=== PATIENT | male | born 1985 | race Caucasian/White ===

== ENCOUNTER 2018-01-25 12:03 | Inpatient (IN) | payer OTHER ==
[2018-01-25 12:35] VITALS: BMI 25.8
--- NOTE | 2018-01-25 16:00 | HP ---
COWS - Scale Resting Pulse: 0= [place] 80 or Below Sweatin= Chills/Flushing Restless Observation: 3= Extraneous Movement Pupil Size: 2= Moderately Dilated Bone or Joint Aches: 2= Severe Diffuse Aches Runny Nose/ Eye Tearin= Runny Nose/Eyes GI Upset > 30mins: 3= Vomiting/Diarrhea Tremor Observation: 2= Slight Tremor Visible Yawning Observation: 2= >3x During Session Anxiety or Irritability: 2=Irritable/Anxious Goose Flesh Skin: 0=Smooth Skin COWS Score: 19 CIWA Score - CIWA Score Nausea/Vomitin Muscle Tremors: 3 Anxiety: 3 Agitation: 3 Paroxysmal Sweats: 2 Orientation: 0-Oriented Tacttile Disturbances: 1-Very Mild Itch/Numbness Auditory Disturbances: 1-Very Mild Visual Disturbances: 0-None Headache: 2-Mild CIWA-Ar Total Score: 18 Admission ROS BHS - HPI Chief Complaint: i need help to stop using heroin,alcohol,xanax,cocaine dependence Allergies/Adverse Reactions: Allergies Allergy/AdvReac Type Severity Reaction Status Date / Time No Known Allergies Allergy Verified 01/25/18 15:42 History of Present Illness: this 32 years old male with heroin,alcohol,cocaine and xanax dependence,seeking detox,withdrawal symptom,last detox 10/19 susanna history of asthma hepatitis c weight loss multiple admissions to detox no significant period of sobriety Exam Limitations: No Limitations - Ebola screening Have you traveled outside of the country in the last 21 days: No Have you been sick,other than usual withdrawal symptoms: No - Review of Systems Constitutional: Chills, Loss of Appetite, Malaise, Night Sweats, Changes in sleep, Weakness, Unintentional Wgt. Loss EENT: reports: Tearing, Hearing Loss Respiratory: reports: No Symptoms reported Cardiac: reports: Palpitations GI: reports: Diarrhea, Nausea, Vomiting, Abdominal cramping : reports: No Symptoms Reported Musculoskeletal: reports: Back Pain, Joint Pain, Muscle Pain, Joint Stiffness Integumentary: reports: Dryness Neuro: reports: Headache, Tremors Endocrine: reports: No Symptoms Reported Hematology: reports: No Symptoms Reported Psychiatric: reports: No Sypmtoms Reported, Mood/Affect Appropiate, Orientated x3 Patient History - Patient Medical History Hx Anemia: No Hx Asthma: Yes (on inhaler) Hx Chronic Obstructive Pulmonary Disease (COPD): No Hx Cancer: No Hx Cardiac Disorders: No Hx Congestive Heart Failure: No Hx Hypertension: No Hx Hypercholesterolemia: No Hx Pacemaker: No HX Cerebrovascular Accident: No Hx Seizures: No Hx Dementia: No Hx Diabetes: No Hx Gastrointestinal Disorders: No Hx Liver Disease: No Hx Genitourinary Disorders: No Hx Sexually Transmitted Disorders: No Hx Renal Disease (ESRD): No Hx Thyroid Disease: No Hx Human Immunodeficiency Virus (HIV): No (12/19 negative) Hx Hepatitis C: Yes Hx Depression: Yes Hx Suicide Attempt: No Hx Bipolar Disorder: Yes (AND ANXIETY) Hx Schizophrenia: No Other Medical History: no suicidal,no homicidal - Patient Surgical History Past Surgical History: No Hx Neurologic Surgery: No Hx Cataract Extraction: No Hx Cardiac Surgery: No Hx Lung Surgery: No Hx Breast Surgery: No Hx Breast Biopsy: No Hx Abdominal Surgery: No Hx Appendectomy: No Hx Cholecystectomy: No Hx Genitourinary Surgery: No Hx Section: No Hx Orthopedic Surgery: No Anesthesia Reaction: No - PPD History Previous Implant?: Yes Documented Results: Positive w/o proof Date: 04/28/15 Results: 0 mm PPD to be Administered?: Yes - Smoking Cessation Smoking history: Never smoked Have you smoked in the past 12 months: No Aproximately how many cigarettes per day: 4 Cigars Per Day: 0 Hx Chewing Tobacco Use: No Initiated information on smoking cessation: Yes 'Breaking Loose' booklet given: 01/25/18 - Substance & Tx. History Hx Alcohol Use: Yes Hx Substance Use: Yes Substance Use Type: Alcohol, Heroin, Tranquilizers Hx Substance Use Treatment: Yes - Substances Abused Heroin Route: Injection Frequency: Daily Amount used: 7 BAGS Age of first use: 23 Date of Last Use: 01/24/18 Alprazolam (Xanax) Route: Oral Frequency: Daily Amount used: 4MG Age of first use: 29 Date of Last Use: 01/25/18 Alcohol Route: Oral Frequency: Daily Amount used: 3 PINTS VODKA Age of first use: 18 Date of Last Use: 01/24/18 Crack Route: Injection Frequency: 1-2 times per week Amount used: 2-3 BAGS Age of first use: 18 Date of Last Use: 01/21/18 Family Disease History - Family Disease History Family Disease History: Diabetes: Father (ETOH DEPENDENT), CA: Grandparent, Respiratory: Brother (ASTHMA), Other: Father Admission Physical Exam [facility] - Vital Signs Vital Signs: Vital Signs - 24 hr 01/25/18 12:28 Temperature 96.9 F L Pulse Rate 71 Respiratory 18 Rate Blood Pressure 133/83 - Physical General Appearance: Yes: Moderate Distress, Tremorous, Irritable, Sweating, Anxious HEENTM: Yes: Normal ENT Inspection, ANASTACIA, Pharynx Normal Respiratory: Yes: No Respiratory Distress, Wheezing Neck: Yes: Within Normal Limits Breast: Yes: Within Normal Limits Cardiology: Yes: Within Normal Limits, Regular Rhythm, Regular Rate, Diastolic Murmur Abdominal: Yes: Within Normal Limits, Normal Bowel Sounds, Non Tender, Flat, Soft Genitourinary: Yes: Within Normal Limits Back: Yes: Normal Inspection, Muscle Spasm Musculoskeletal: Yes: Back pain, Joint Stiffness, Muscle Pain Extremities: Yes: Normal Range of Motion, Tremors Neurological: Yes: rn case 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 II-XII NML intact, Fully Oriented, Alert, Motor Strength 5/5 Integumentary: Yes: Dry Lymphatic: Yes: Within Normal Limits - Diagnostic (1) Opioid dependence with withdrawal Status: Acute (2) Asthma Status: Acute Qualifiers: Asthma severity: mild Asthma persistence: intermittent Asthma complication type: uncomplicated Qualified Code(s): J45.20 - Mild intermittent asthma, uncomplicated (3) Cocaine dependence Status: Acute Qualifiers: Substance use status: uncomplicated Qualified Code(s): F14.20 - Cocaine dependence, uncomplicated (4) Weight decreased Status: Acute (5) Alcohol dependence with uncomplicated withdrawal Status: Chronic (6) Cocaine dependence with withdrawal Status: Chronic (7) Hepatitis C Status: Chronic Qualifiers: Viral hepatitis chronicity: chronic Hepatic coma status: without hepatic coma Qualified Code(s): B18.2 - Chronic viral hepatitis C (8) Nicotine dependence Status: Chronic Qualifiers: Nicotine product type: cigarettes Substance use status: uncomplicated Qualified Code(s): F17.210 - Nicotine dependence, cigarettes, uncomplicated (9) Sedative dependence Status: Chronic Cleared for Admission [facility] - Detox or Rehab [facility] Level of Care: Medically Managed Detox Regimen/Protocol: Methadone/Valium [facility] Breath Alcohol Content Breath Alcohol Content: 0 Urine Drug Screen - Results Drug Screen Negative: Yes Urine Drug Screen Results: [place]-Cocaine, OPI-Opiates, BZO-Benzodiazepines, MTD- Methadone
[2018-01-25] MEDS ORDERED: MENTHOL/PHENOL 1 EACH UD MM PRN (16:10)
[2018-01-25] MEDS ORDERED: MAGNESIUM CITRATE 300 ML BOTTLE PO PRN (16:10)
[2018-01-25] MEDS ORDERED: hydrOXYzine PAMOATE 25 MG CAPSULE (FP) PO PRN (16:10)
[2018-01-25] MEDS ORDERED: ACETAMINOPHEN 325 MG TABLET (FP) PO PRN (16:10)
[2018-01-25] MEDS ORDERED: diazePAM 5 MG TABLET PO PRN (16:10)
[2018-01-25] MEDS ORDERED: IBUPROFEN 400 MG TABLET (FP) PO PRN (16:10)
[2018-01-25] MEDS ORDERED: MAGNESIUM HYDROX 2400MG/30ML ORAL SUSPENSION 30 ML CUP PO PRN (16:10)
[2018-01-25] MEDS ORDERED: P-EPHED 60MG/TRIPROLIDI 2.5MG TABLET PO PRN (16:10)
[2018-01-25] MEDS ORDERED: guaiFENesin/D-METHORPHAN HB 10 ML UNIT-DOSE CUPS PO PRN (16:10)
[2018-01-25] MEDS ORDERED: LOPERAMIDE HCL 2 MG CAPSULE PO PRN (16:10)
[2018-01-25] MEDS ORDERED: MAG HYDROX/AL HYDROX/SIMETH 30 ML UNIT-DOSE CUP PO PRN (16:10)
[2018-01-25] MEDS ORDERED: CYCLOBENZAPRINE HCL 10 MG TABLET (FP) PO PRN (16:16)
[2018-01-25] MEDS ORDERED: ALBUTEROL SO4 2.5/IPRATROPIUM 0.5 INH SOL 3 ML VIAL.NEB. NEB PRN (16:19)
[2018-01-25] MEDS ORDERED: METHADONE HCL 10 MG TABLET (FOR DETOX USE ONLY) PO ONE ×2 (16:45→23:00)
[2018-01-25] MEDS ORDERED: diazePAM 5 MG TABLET PO ONE (16:45)
[2018-01-25] MEDS ORDERED: MELATONIN 5 MG TABLETS PO PRN (22:00)
[2018-01-25] MEDS ORDERED: THIAMINE HCL 100 MG TABLET (FP) PO SCH (22:00)
[2018-01-25] MEDS: diazePAM 5 MG TABLET PO SCH (22:13)
[2018-01-25] MEDS: cloNIDine HCL 0.1 MG TABLET PO SCH (22:14)
[2018-01-26 01:29] LABS: URINE APPEARANCE TURBID; URINE BILIRUBIN NEGATIVE (<2.0 mg/dL); URINE COLOR DKYELLOW; URINE GLUCOSE (UA) NEGATIVE (NEGATIVE); URINE KETONE NEGATIVE (NEGATIVE); URINE LEUK ESTERASE NEGATIVE (NEGATIVE); URINE NITRITE NEGATIVE (NEGATIVE); URINE PROTEIN NEGATIVE (NEGATIVE); URINE UROBILINOGEN NEGATIVE mg/dL (0.2-1.0)
[2018-01-26] MEDS: ALBUTEROL SO4 8 GM HFA INHALER IH PRN ×2 (03:32→08:18)
[2018-01-26] MEDS: diazePAM 5 MG TABLET PO SCH (05:18)
[2018-01-26 06:39] VITALS: TEMP 97.6
[2018-01-26 09:52] VITALS: BP 133/84; PULSE 60
[2018-01-26] MEDS ORDERED: PRENATAL VITAMINS W/ FOLIC ACID TABLET (FP) PO SCH (10:00)
[2018-01-26] MEDS ORDERED: METHADONE HCL 10 MG TABLET (FOR DETOX USE ONLY) PO SCH (10:00)
[2018-01-26] MEDS ORDERED: NICOTINE 7 MG/24 HOURS TOPICAL PATCH TD SCH (10:00)
[2018-01-26 10:22] LABS: CHLORIDE 106 mmol/L (98-107); POTASSIUM 4.6 mmol/L (3.5-5.1); SODIUM 143 mmol/L (136-145)
[2018-01-26 10:30] LABS: HEMATOCRIT 37.6 % (35.4-49); HEMOGLOBIN 12.3 GM/dL (11.7-16.9); MCH 26.4 pg (25.7-33.7); MCHC 32.8 g/dl (32.0-35.9); MEAN CELL VOLUME 80.6 fl (80-96); MEAN PLT VOLUME 8.6 fl (7.5-11.1); PLATELET COUNT 245 K/MM3 (134-434); RBC 4.67 M/mm3 (4.00-5.60); RDW 14.8 % (11.9-15.9); WHITE BLOOD COUNT 5.6 K/mm3 (4.0-10.0)
[2018-01-26] MEDS: cloNIDine HCL 0.1 MG TABLET PO SCH (10:44)
[2018-01-26 10:55] LABS: ALK PHOS 87 U/L (45-117); ANION GAP 10 MMOL/L (8-16); BILIRUBIN,TOTAL 0.5 mg/dL (0.2-1.0); BLOOD UREA NITROGEN 14 mg/dL (7-18); CALCIUM 8.5 mg/dL (8.5-10.1); CO2 27 mmol/L (21-32); CREATININE 0.6 mg/dL (0.7-1.3); GLUCOSE,RANDOM 71 mg/dL (74-106); SGOT/AST 32 U/L (15-37); SGPT/ALT 33 U/L (12-78); TOT PROT 6.4 g/dl (6.4-8.2)
--- NOTE | 2018-01-26 11:04 | CONSULT ---
[facility] Psychiatric Consult - Data Date of interview: 01/26/18 Admission [facility] Identifying data: Approached for psychiatric interview.Mr Moody refuses to talk to this engineering writer." I don't have psychiatric problems." Nursing staff is made aware.
--- NOTE | 2018-01-26 14:28 | PN ---
S CIWA - CIWA Score Nausea/Vomitin Muscle Tremors: 3 Anxiety: 4-Mod. Anxious/Guarded Agitation: 5 Paroxysmal Sweats: 2 Orientation: 0-Oriented Tacttile Disturbances: 2-Mild Itch/Numbness/Burn Auditory Disturbances: 0-None Visual Disturbances: 1-Very Mild Sensitivity Headache: 0-None Present CIWA-Ar Total Score: 19 BHS COWS - Scale Resting Pulse: 0= [place] 80 or Below Sweatin= Chills/Flushing Restless Observation: 1= Difficult to Sit Still Pupil Size: 0= Normal to Room Light Bone or Joint Aches: 2= Severe Diffuse Aches Runny Nose/ Eye Tearin= Nasal Congestion GI Upset > 30mins: 1= Stomach Cramp Tremor Observation of Outstretched Hands: 2= Slight Tremor Visible Yawning Observation: 1= 1-2x During Session Anxiety or Irritability: 4=Extreme Anxiety Goose Flesh Skin: 0=Smooth Skin COWS Score: 13 S Progress Note (SOAP) Subjective: Sweating, Body Aches, Tremors, Fatigue, Anxious. Objective: PATIENT A & O X 3, OBSERVED AMBULATING ON UNIT. NO ACUTE DISTRESS. 01/26/18 14:31 Vital Signs Temperature 97.6 F 01/26/18 09:51 Pulse Rate 60 01/26/18 09:51 Respiratory Rate 18 01/26/18 09:51 Blood Pressure 133/84 01/26/18 09:51 O2 Sat by Pulse Oximetry (%) Laboratory Tests 01/25/18 01/26/18 01/26/18 22:56 08:00 08:00 WBC 5.6 RBC 4.67 Hgb 12.3 Hct 37.6 MCV 80.6 MCH 26.4 MCHC 32.8 RDW 14.8 Plt Count 245 MPV 8.6 Sodium 143 Potassium 4.6 Chloride 106 Carbon Dioxide 27 Anion Gap 10 BUN 14 Creatinine 0.6 L Creat Clearance w eGFR > 60 Random Glucose 71 L Calcium 8.5 Total Bilirubin 0.5 AST 32 D ALT 33 D Alkaline Phosphatase 87 Total Protein 6.4 Albumin 3.0 L Urine Color Dkyellow Urine Appearance Turbid Urine pH 7.0 Ur Specific [place] 1.024 Urine Protein Negative Urine Glucose (UA) Negative Urine Ketones Negative Urine Blood Negative Urine Nitrite Negative Urine Bilirubin Negative Urine Urobilinogen Negative Ur Leukocyte Esterase Negative RPR Titer 01/26/18 08:00 WBC RBC Hgb Hct MCV MCH MCHC RDW Plt Count MPV Sodium Potassium Chloride Carbon Dioxide Anion Gap BUN Creatinine Creat Clearance w eGFR Random Glucose Calcium Total Bilirubin AST ALT Alkaline Phosphatase Total Protein Albumin Urine Color Urine Appearance Urine pH Ur Specific [place] Urine Protein Urine Glucose (UA) Urine Ketones Urine Blood Urine Nitrite Urine Bilirubin Urine Urobilinogen Ur Leukocyte Esterase RPR Titer Nonreactive LABS NOTED. Assessment: 01/26/18 14:31 WITHDRAWAL SYMPTOMS. Plan: CONTINUE DETOX.
--- NOTE | 2018-01-26 14:33 | DS ---
[facility] Detox Discharge Summary Admission Date: 01/25/18 Discharge Date: 01/26/18 - History Present History: Alcohol Dependence, Cocaine Dependence, Opioid Dependence, Sedative Dependence Additional Comments: PATIENT DOES NOT WISH TO REMAIN TO COMPLETE DETOX REGIMEN. RISKS OF LEAVING DETOX UNIT AGAINST MEDICAL ADVICE AND PRIOR TO COMPLETION OF DETOX REGIMEN EXPLAINED TO PATIENT. PATIENT ADVISED TO GO IMMEDIATELY TO NEAREST ER SHOULD ANY INTOLERABLE DETOX SYMPTOMS DEVELOP AT ANY TIME. PATIENT LEFT DETOX UNIT IN STABLE MEDICAL CONDITION. Pertinent Past History: Nicotine Dependence, Hep C, Asthma, History of Depression, History of Bipolar Disorder, Anxiety, Weight Decreased. - Physical Exam Results Vital Signs: Vital Signs Temperature 97.6 F 01/26/18 09:51 Pulse Rate 60 01/26/18 09:51 Respiratory Rate 18 01/26/18 09:51 Blood Pressure 133/84 01/26/18 09:51 O2 Sat by Pulse Oximetry (%) Pertinent Admission Physical Exam Findings: WITHDRAWAL SYMPTOMS. Laboratory Tests 01/25/18 01/26/18 01/26/18 22:56 08:00 08:00 WBC 5.6 RBC 4.67 Hgb 12.3 Hct 37.6 MCV 80.6 MCH 26.4 MCHC 32.8 RDW 14.8 Plt Count 245 MPV 8.6 Sodium 143 Potassium 4.6 Chloride 106 Carbon Dioxide 27 Anion Gap 10 BUN 14 Creatinine 0.6 L Creat Clearance w eGFR > 60 Random Glucose 71 L Calcium 8.5 Total Bilirubin 0.5 AST 32 D ALT 33 D Alkaline Phosphatase 87 Total Protein 6.4 Albumin 3.0 L Urine Color Dkyellow Urine Appearance Turbid Urine pH 7.0 Ur Specific [place] 1.024 Urine Protein Negative Urine Glucose (UA) Negative Urine Ketones Negative Urine Blood Negative Urine Nitrite Negative Urine Bilirubin Negative Urine Urobilinogen Negative Ur Leukocyte Esterase Negative RPR Titer 01/26/18 08:00 WBC RBC Hgb Hct MCV MCH MCHC RDW Plt Count MPV Sodium Potassium Chloride Carbon Dioxide Anion Gap BUN Creatinine Creat Clearance w eGFR Random Glucose Calcium Total Bilirubin AST ALT Alkaline Phosphatase Total Protein Albumin Urine Color Urine Appearance Urine pH Ur Specific [place] Urine Protein Urine Glucose (UA) Urine Ketones Urine Blood Urine Nitrite Urine Bilirubin Urine Urobilinogen Ur Leukocyte Esterase RPR Titer Nonreactive LABS NOTED. - Treatment Hospital Course: Detoxed Safely - Medication Discharge Medications: Ambulatory Orders Albuterol Sulfate Inhaler - [Ventolin HFA Inhaler -] 2 inh PO Q4H PRN 12/31/13 - Diagnosis (1) Asthma Status: Acute Qualifiers: Asthma severity: mild Asthma persistence: intermittent Asthma complication type: uncomplicated Qualified Code(s): J45.20 - Mild intermittent asthma, uncomplicated (2) Opioid dependence with withdrawal Status: Acute (3) Weight decreased Status: Acute (4) Alcohol dependence with uncomplicated withdrawal Status: Chronic (5) Cocaine dependence with withdrawal Status: Chronic (6) Hepatitis C Status: Chronic Qualifiers: Viral hepatitis chronicity: chronic Hepatic coma status: without hepatic coma Qualified Code(s): B18.2 - Chronic viral hepatitis C (7) Nicotine dependence Status: Chronic Qualifiers: Nicotine product type: cigarettes Substance use status: uncomplicated Qualified Code(s): F17.210 - Nicotine dependence, cigarettes, uncomplicated (8) Sedative dependence Status: Chronic - AMA Did Patient Leave Against Medical Advice: Yes (PATIENT DID NOT WISH TO REMAIN TO COMPLETE DETOX REGIMEN.)
--- NOTE | 2018-01-26 19:08 | EKG ---
Test Reason : Blood Pressure : / mmHG Vent. Rate : 070 BPM Atrial Rate : 070 BPM P-R Int : 158 ms QRS Dur : 096 ms QT Int : 420 ms P-R-T Axes : 043 030 053 degrees QTc Int : 453 ms NORMAL SINUS RHYTHM NORMAL ECG NO PREVIOUS ECGS AVAILABLE Confirmed by MIRA CLINE MD ([id number]) on 01/26/2018 7:08:17 PM Referred By: Confirmed By:MIRA CLINE MD
[2018-01-27] MEDS ORDERED: diazePAM 5 MG TABLET PO SCH (10:00)
[2018-01-27] MEDS ORDERED: METHADONE HCL 5 MG TABLET (FOR DETOX USE ONLY) PO SCH (10:00)
[2018-01-29] MEDS ORDERED: METHADONE HCL 10 MG TABLET (FOR DETOX USE ONLY) PO SCH (10:00)
[2018-01-29] MEDS ORDERED: diazePAM 5 MG TABLET PO SCH (10:00)
[2018-01-30] MEDS ORDERED: METHADONE HCL 5 MG TABLET (FOR DETOX USE ONLY) PO SCH (06:00)
== END 2018-01-26 11:28 | disposition left against medical advice (07) | DRG 770 ==
LOC: YASAS 12:03 → Y3N 15:54
PROVIDERS: ADMIT Surgery; ATTEND Surgery
PROC: HZ2ZZZZ Detoxification Services for Substance Abuse Treatment (ICD-10-PCS; principal; 2018-01-25)
DX: F11.23 Opioid dependence with withdrawal (principal); F10.230 Alcohol dependence with withdrawal, uncomplicated; F13.20 Sedative, hypnotic or anxiolytic dependence, uncomplicated; F14.20 Cocaine dependence, uncomplicated; F17.210 Nicotine dependence, cigarettes, uncomplicated; J45.20 Mild intermittent asthma, uncomplicated; B18.2 Chronic viral hepatitis C; Z87.898 Personal history of other specified conditions
CPT/HCPCS: 36415; 80053; 81003; 85027; 86593; 93005; 93010; 94640; J0735; J7620

== ENCOUNTER 2018-03-20 09:35 | Inpatient (IN) | payer OTHER ==
[2018-03-20 10:28] VITALS: BMI 24.2
--- NOTE | 2018-03-20 16:00 | HP ---
COWS - Scale Resting Pulse: 1= [place] 81-100 Sweatin= Chills/Flushing Restless Observation: 1= Difficult to Sit Still Pupil Size: 1= Pupils >than Normal Bone or Joint Aches: 1= Mild Discomfort Runny Nose/ Eye Tearin= Runny Nose/Eyes GI Upset > 30mins: 2= Nausea/Diarrhea Tremor Observation: 2= Slight Tremor Visible Yawning Observation: 2= >3x During Session Anxiety or Irritability: 2=Irritable/Anxious Goose Flesh Skin: 0=Smooth Skin COWS Score: 15 CIWA Score - CIWA Score Nausea/Vomitin Muscle Tremors: 2 Anxiety: 3 Agitation: 1-Slight > Activity Paroxysmal Sweats: 3 Orientation: 1-Uncertain about Date Tacttile Disturbances: 2-Mild Itch/Numbness/Burn Auditory Disturbances: 0-None Visual Disturbances: 1-Very Mild Sensitivity Headache: 2-Mild CIWA-Ar Total Score: 18 Admission ROS BHS - HPI Chief Complaint: " I am tire" alcohol and opioid withdrawal symptoms Allergies/Adverse Reactions: Allergies Allergy/AdvReac Type Severity Reaction Status Date / Time No Known Allergies Allergy Verified 01/25/18 15:42 History of Present Illness: 32 yo male with hx cocaine , heroin (IV), and alcohol dependence is here seeking detox, this of multiple admissions. Reports using occasional use of needles that he picks up off the street. Reports currently mandated to attend detox program by community court ([facility]) after arrested for drug possession. Last detox [facility] two months ago. PMHX: asthma, Hep C, anxiety, depression. Denies suicidal / homicidal ideation. Reports hx of ETOH r/t seizure about one year ago. Reports hx of frequent blackouts. Longest period of sobriety ten months while incarcerated, reports no significant period of sobriety while in the community. Exam Limitations: No Limitations - Ebola screening Have you traveled outside of the country in the last 21 days: No (N) Have you had contact with anyone from an Ebola affected area: No Have you been sick,other than usual withdrawal symptoms: No Do you have a fever: No - Review of Systems Constitutional: Chills, Diaphoresis, Loss of Appetite, Weakness, Unintentional Wgt. Loss EENT: reports: No Symptoms Reported Respiratory: reports: No Symptoms reported Cardiac: reports: No Symptoms Reported GI: reports: Constipated, Nausea, Vomiting, Abdominal cramping : reports: No Symptoms Reported Musculoskeletal: reports: Back Pain, Joint Pain Integumentary: reports: No Symptoms Reported Neuro: reports: See HPI, Headache Endocrine: reports: Increased Thirst Hematology: reports: No Symptoms Reported Psychiatric: reports: Orientated x3, Anxious Other Systems: Reviewed and Negative Patient History - Patient Medical History Hx Anemia: No Hx Asthma: Yes Hx Chronic Obstructive Pulmonary Disease (COPD): No Hx Cancer: No Hx Cardiac Disorders: No Hx Congestive Heart Failure: No Hx Hypertension: No Hx Hypercholesterolemia: No Hx Pacemaker: No HX Cerebrovascular Accident: No Hx Seizures: Yes (r/t drinking one year ago ) Hx Dementia: No Hx Diabetes: No Hx Gastrointestinal Disorders: No Hx Liver Disease: No Hx Genitourinary Disorders: No Hx Sexually Transmitted Disorders: No Hx Renal Disease (ESRD): No Hx Thyroid Disease: No Hx Human Immunodeficiency Virus (HIV): No (12/19 negative) Hx Hepatitis C: Yes Hx Depression: Yes Hx Suicide Attempt: Yes Hx Bipolar Disorder: Yes (AND ANXIETY) Hx Schizophrenia: No - Patient Surgical History Past Surgical History: No Hx Neurologic Surgery: No Hx Cataract Extraction: No Hx Cardiac Surgery: No Hx Lung Surgery: No Hx Breast Surgery: No Hx Breast Biopsy: No Hx Abdominal Surgery: No Hx Appendectomy: No Hx Cholecystectomy: No Hx Genitourinary Surgery: No Hx Section: No Hx Orthopedic Surgery: No Anesthesia Reaction: No - PPD History Previous Implant?: Yes Documented Results: Negative w/proof Implanted On Prior [facility] Admission?: Yes Date: 04/28/15 Results: 0 mm PPD to be Administered?: Yes - Smoking Cessation Smoking history: Current every day smoker Have you smoked in the past 12 months: No Aproximately how many cigarettes per day: 0 Cigars Per Day: 0 Hx Chewing Tobacco Use: No Initiated information on smoking cessation: No - Substance & Tx. History Hx Alcohol Use: Yes Hx Substance Use: Yes Substance Use Type: Alcohol, Heroin - Substances Abused Alcohol Route: Oral Frequency: Daily Amount used: 1 pint Age of first use: 18 Date of Last Use: 03/20/18 Heroin Route: Injection Frequency: Daily Amount used: 7 to 8 bags Age of first use: 23 Date of Last Use: 03/20/18 Family Disease History - Family Disease History Family Disease History: Diabetes: Father (ETOH DEPENDENT), CA: Grandparent, Respiratory: Brother (ASTHMA), Other: Father Admission Physical Exam [facility] - Vital Signs Vital Signs: Vital Signs - 24 hr 03/20/18 10:24 Temperature 97.6 F Pulse Rate 85 Respiratory 18 Rate Blood Pressure 122/75 - Physical General Appearance: Yes: Disheveled, Moderate Distress, Thin, Sweating, Anxious HEENTM: Yes: EOMI, Hearing grossly Normal, Normal ENT Inspection, Normocephalic , Normal Voice, ANASTACIA, Pharynx Normal, Tm's normal, Other (cheilithis) Respiratory: Yes: Chest Non-Tender, Lungs Clear, Normal Breath Sounds, No Respiratory Distress, No Accessory Muscle Use Neck: Yes: No masses,lesions,Nodules, Trachea in good position Cardiology: Yes: Regular Rhythm, Regular Rate Abdominal: Yes: Normal Bowel Sounds, Non Tender, Flat, Soft Genitourinary: Yes: Within Normal Limits Back: Yes: Normal Inspection Musculoskeletal: Yes: full range of Motion, Gait Steady, Pelvis Stable, Back pain Extremities: Yes: Normal Capillary Refill, Normal Inspection, Normal Range of Motion, Non-Tender Neurological: Yes: 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 NML intact, Fully Oriented, Alert, Motor Strength 5/5, Depressed Affect Integumentary: Yes: Normal Color, Warm, Diaphoresis, Track Huggins (bilateral forearms track huggins present, no infection present) Lymphatic: Yes: Within Normal Limits - Diagnostic (1) Asthma Current Visit: Yes Status: Chronic Qualifiers: Asthma severity: mild Asthma persistence: intermittent Asthma complication type: uncomplicated Qualified Code(s): J45.20 - Mild intermittent asthma, uncomplicated (2) Opioid dependence with withdrawal Current Visit: Yes Status: Acute (3) Weight decreased Current Visit: Yes Status: Acute (4) Alcohol dependence with uncomplicated withdrawal Current Visit: Yes Status: Chronic (5) Hepatitis C Current Visit: Yes Status: Chronic Qualifiers: Viral hepatitis chronicity: chronic Hepatic coma status: without hepatic coma Qualified Code(s): B18.2 - Chronic viral hepatitis C (6) Nicotine dependence Current Visit: Yes Status: Chronic Qualifiers: Nicotine product type: cigarettes Substance use status: uncomplicated Qualified Code(s): F17.210 - Nicotine dependence, cigarettes, uncomplicated (7) IVDU (intravenous drug user) Current Visit: Yes Status: Acute Cleared for Admission [facility] - Detox or Rehab [facility] Level of Care: Medically Managed Detox Regimen/Protocol: Methadone/Valium [facility] Breath Alcohol Content Breath Alcohol Content: 0.060 Urine Drug Screen - Results Drug Screen Negative: No Urine Drug Screen Results: [place]-Cocaine, OPI-Opiates, BZO-Benzodiazepines, MTD- Methadone, FEN-Fentanyl
[2018-03-20] MEDS ORDERED: ALBUTEROL SO4 8 GM HFA INHALER IH PRN (16:04)
[2018-03-20] MEDS ORDERED: guaiFENesin/D-METHORPHAN HB 10 ML UNIT-DOSE CUPS PO PRN (16:05)
[2018-03-20] MEDS ORDERED: MAGNESIUM CITRATE 300 ML BOTTLE PO PRN (16:05)
[2018-03-20] MEDS ORDERED: diazePAM 5 MG TABLET PO PRN (16:05)
[2018-03-20] MEDS ORDERED: LOPERAMIDE HCL 2 MG CAPSULE PO PRN (16:05)
[2018-03-20] MEDS ORDERED: P-EPHED 60MG/TRIPROLIDI 2.5MG TABLET PO PRN (16:05)
[2018-03-20] MEDS ORDERED: ACETAMINOPHEN 325 MG TABLET (FP) PO PRN (16:05)
[2018-03-20] MEDS ORDERED: IBUPROFEN 400 MG TABLET (FP) PO PRN (16:05)
[2018-03-20] MEDS ORDERED: MENTHOL/PHENOL 1 EACH UD MM PRN (16:05)
[2018-03-20] MEDS ORDERED: MAG HYDROX/AL HYDROX/SIMETH 30 ML UNIT-DOSE CUP PO PRN (16:05)
[2018-03-20] MEDS ORDERED: MAGNESIUM HYDROX 2400MG/30ML ORAL SUSPENSION 30 ML CUP PO PRN (16:05)
[2018-03-20] MEDS ORDERED: METHADONE HCL 10 MG TABLET (FOR DETOX USE ONLY) PO ONE ×2 (17:00→23:00)
[2018-03-20] MEDS ORDERED: diazePAM 5 MG TABLET PO ONE (17:00)
[2018-03-20] MEDS: diazePAM 5 MG TABLET PO SCH (23:25)
[2018-03-20] MEDS: THIAMINE HCL 100 MG TABLET (FP) PO SCH (23:26)
[2018-03-20] MEDS: MELATONIN 5 MG TABLETS PO PRN (23:27)
[2018-03-21] MEDS: diazePAM 5 MG TABLET PO SCH ×3 (06:10→22:37)
--- NOTE | 2018-03-21 07:24 | CONSULT ---
[facility] Psychiatric Consult - Data Date of interview: 03/21/18 Admission source: [facility] Identifying data: This is a 32 years old male, single, father of two, living at long term, unemployed, on PA support, with psychiatric hospitalization history , with history of Bipolar Disorder, history of Cocaine , Heroin (IV), Alcohol and Nicotine dependence is here seeking detox, reporting withdrawal symptoms. Substance Abuse History: - Smoking Cessation. Smoking history: Current every day smoker. Have you smoked in the past 12 months: No. Aproximately how many cigarettes per day: 0. Cigars Per Day: 0. Hx Chewing Tobacco Use: No. Initiated information on smoking cessation: No. - Substance & Tx. History. Hx Alcohol Use: Yes. Hx Substance Use: Yes. Substance Use Type: Alcohol, Heroin. - Substances Abused. Alcohol. Route: Oral. Frequency: Daily. Amount used: 1 pint. Age of first use: 18. Date of Last Use: 03/20/18. Heroin. Route: Injection. Frequency: Daily. Amount used: 7 to 8 bags. Age of first use: 23. Date of Last Use: 03/20/18 Medical History: Weight loss history, Asthma, HepC+, Seizure history Psychiatric History: Patient reports history of depression and anxiety, as per computer carries Bipolar Disorder history, history of suicidal attempt in the past, patent denies suicidal history, reports recent, on 2016, hospitalization at [facility] for safety, denies taking psychiatric medications prior to admission. Physical/Sexual Abuse/Trauma History: Denies Additional Comment: Observation. Detox Unit Care Protocol Mental Status Exam - Mental Status Exam Alert and Oriented to: Person Cognitive Function: Fair Patient Appearance: Unkempt Mood: Anxious Affect: Mood Congruent Patient Behavior: Cooperative Speech Pattern: Appropriate Voice Loudness: Normal Thought Process: Circumstantial Thought Disorder: Being Controlled Hallucinations: Denies Suicidal Ideation: Denies Homicidal Ideation: Denies Insight/Judgement: Fair Sleep: Difficulty falling asleep Appetite: Weight loss Muscle strength/Tone: Mild Hypotonicity Gait/Station: Shuffling Additional Comments: Observation. Detox Unit Care Protocol. Vistaril 50mg po prn q4 for anxiety Psychiatric Findings - Problem List ([place] 1, 2,3) (1) Opioid dependence with withdrawal Current Visit: Yes Status: Acute (2) Opioid dependence Current Visit: No Status: Acute (3) Cocaine dependence with withdrawal Current Visit: No Status: Chronic (4) Sedative dependence Current Visit: No Status: Chronic - Initial Treatment Plan Initial Treatment Plan: Observation. Detox Unit Care Protocol. Vistaril 50mg po prn q4 for anxiety
[2018-03-21] MEDS ORDERED: hydrOXYzine PAMOATE 50 MG CAPSULE (FP) PO PRN (09:05)
--- NOTE | 2018-03-21 09:23 | EKG ---
Test Reason : Blood Pressure : / mmHG Vent. Rate : 096 BPM Atrial Rate : 096 BPM P-R Int : 154 ms QRS Dur : 100 ms QT Int : 368 ms P-R-T Axes : 063 023 060 degrees QTc Int : 464 ms NORMAL SINUS RHYTHM INCOMPLETE RIGHT BUNDLE BRANCH BLOCK BORDERLINE ECG WHEN COMPARED WITH ECG OF 25-JAN-2018 17:35, NO SIGNIFICANT CHANGE WAS FOUND Confirmed by SHANNAN MANCERA MD ([id number]) on 03/21/2018 9:23:10 AM Referred By: Confirmed By:SHANNAN MANCERA MD
[2018-03-21] MEDS ORDERED: BACLOFEN 10 MG TABLET (FP) PO ONE (09:32)
[2018-03-21] MEDS ORDERED: METHADONE HCL 10 MG TABLET (FOR DETOX USE ONLY) PO SCH (10:00)
[2018-03-21] MEDS ORDERED: PRENATAL VITAMINS W/ FOLIC ACID TABLET (FP) PO SCH (10:00)
[2018-03-21 10:31] LABS: HEMATOCRIT 39.1 % (35.4-49); HEMOGLOBIN 12.3 GM/dL (11.7-16.9); MCH 25.6 pg (25.7-33.7); MCHC 31.6 g/dl (32.0-35.9); MEAN CELL VOLUME 81.1 fl (80-96); MEAN PLT VOLUME 7.8 fl (7.5-11.1); PLATELET COUNT 281 K/MM3 (134-434); RBC 4.82 M/mm3 (4.00-5.60); RDW 15.4 % (11.9-15.9); WHITE BLOOD COUNT 8.8 K/mm3 (4.0-10.0)
[2018-03-21 10:47] LABS: ALK PHOS 99 U/L (45-117); ANION GAP 3 MMOL/L (8-16); BILIRUBIN,TOTAL 0.3 mg/dL (0.2-1); BLOOD UREA NITROGEN 18 mg/dL (7-18); CALCIUM 8.9 mg/dL (8.5-10.1); CHLORIDE 109 mmol/L (98-107); CO2 29 mmol/L (21-32); CREATININE 0.7 mg/dL (0.55-1.3); GLUCOSE,RANDOM 70 mg/dL (74-106); POTASSIUM 4.6 mmol/L (3.5-5.1); SGOT/AST 42 U/L (15-37); SGPT/ALT 56 U/L (13-61); SODIUM 141 mmol/L (136-145); TOT PROT 6.5 g/dl (6.4-8.2)
--- NOTE | 2018-03-21 12:10 | PN ---
S CIWA - CIWA Score Nausea/Vomitin-Mild Nausea/No Vomiting Muscle Tremors: 4-Moderate,w/Arms Extend Anxiety: 4-Mod. Anxious/Guarded Agitation: 4-Moderately Restless Paroxysmal Sweats: 1-Minimal Palms Moist Orientation: 0-Oriented Tacttile Disturbances: 1-Very Mild Itch/Numbness Auditory Disturbances: 0-None Visual Disturbances: 0-None Headache: 1-Very Mild CIWA-Ar Total Score: 16 BHS COWS - Scale Resting Pulse: 0= [place] 80 or Below Sweatin= Chills/Flushing Restless Observation: 1= Difficult to Sit Still Pupil Size: 0= Normal to Room Light Bone or Joint Aches: 2= Severe Diffuse Aches Runny Nose/ Eye Tearin= Runny Nose/Eyes GI Upset > 30mins: 1= Stomach Cramp Tremor Observation of Outstretched Hands: 2= Slight Tremor Visible Yawning Observation: 1= 1-2x During Session Anxiety or Irritability: 1=Feels Anxious/Irritable Goose Flesh Skin: 3=Piloe[place] COWS Score: 14 S Progress Note (SOAP) Subjective: sweat tremor body aches diarrhea back pain feet hurt from walking on hard floor Objective: 03/21/18 12:10 Vital Signs Temperature 97.9 F 03/21/18 09:24 Pulse Rate 87 03/21/18 11:30 Respiratory Rate 18 03/21/18 09:24 Blood Pressure 125/67 03/21/18 09:24 O2 Sat by Pulse Oximetry (%) Laboratory Tests 03/21/18 03/21/18 07:00 07:00 WBC 8.8 RBC 4.82 Hgb 12.3 Hct 39.1 MCV 81.1 MCH 25.6 L MCHC 31.6 L RDW 15.4 Plt Count 281 MPV 7.8 Sodium 141 Potassium 4.6 Chloride 109 H Carbon Dioxide 29 Anion Gap 3 L BUN 18 Creatinine 0.7 Creat Clearance w eGFR > 60 Random Glucose 70 L Calcium 8.9 Total Bilirubin 0.3 AST 42 H ALT 56 Alkaline Phosphatase 99 Total Protein 6.5 Albumin 3.0 L lab noted Assessment: 03/21/18 12:10 withdrawal sx Plan: continue detox
[2018-03-21] MEDS: MELATONIN 5 MG TABLETS PO PRN (22:37)
[2018-03-21] MEDS: THIAMINE HCL 100 MG TABLET (FP) PO SCH (22:37)
[2018-03-22 09:13] VITALS: BP 126/78; PULSE 102; TEMP 97.8
[2018-03-22] MEDS ORDERED: diazePAM 5 MG TABLET PO SCH (10:00)
[2018-03-22] MEDS ORDERED: METHADONE HCL 5 MG TABLET (FOR DETOX USE ONLY) PO SCH (10:00)
--- NOTE | 2018-03-22 10:27 | DS ---
[facility] Detox Discharge Summary Admission Date: 03/20/18 Discharge Date: 03/22/18 - History Present History: Alcohol Dependence, Opioid Dependence - Physical Exam Results Vital Signs: Vital Signs Temperature 97.8 F 03/22/18 09:12 Pulse Rate 102 H 03/22/18 09:12 Respiratory Rate 18 03/22/18 09:12 Blood Pressure 126/78 03/22/18 09:12 O2 Sat by Pulse Oximetry (%) Pertinent Admission Physical Exam Findings: PATIENT REQUESTED TO SIGN OUT AMA THIS MORNING. PATIENT STATED " I WANT TO LEAVE NOW. I DON'T CARE IF IT IS AGAINST MEDICAL ADVICE". PATIENT ENCOURAGED TO COMPLETE DETOX BUT REFUSED. PATIENT EDUCATED REGARDING RISK FACTORS OF AND RELAPSE WITH SIGNING OUT AMA. PATIENT VERBALIZED UNDERSTANDING OF EDUCATION PROVIDED. PATIENT IS ALERT AND ORIENTED X 3, SKIN WARM AND DRY, AMB AD BRIANA. DENIES SI/HI. PATIENT ENCOURAGED TO ATTEND GROUP MEETINGS TO PREVENT RELAPSE AND SEEK MEDICAL ATTENTION IF WITHDRAWAL SYMPTOMS OCCUR. Vital Signs Temperature 97.8 F 03/22/18 09:12 Pulse Rate 102 H 03/22/18 09:12 Respiratory Rate 03/22/18 09:12 Blood Pressure 126/78 03/22/18 09:12 O2 Sat by Pulse Oximetry (%) - Medication Discharge Medications: Ambulatory Orders Albuterol Sulfate Inhaler - [Ventolin HFA Inhaler -] 2 inh PO Q4H PRN 12/31/13 - AMA Did Patient Leave Against Medical Advice: Yes
[2018-03-24] MEDS ORDERED: diazePAM 5 MG TABLET PO SCH (10:00)
[2018-03-24] MEDS ORDERED: METHADONE HCL 10 MG TABLET (FOR DETOX USE ONLY) PO SCH (10:00)
[2018-03-25] MEDS ORDERED: METHADONE HCL 5 MG TABLET (FOR DETOX USE ONLY) PO SCH (06:00)
== END 2018-03-22 10:00 | disposition left against medical advice (07) | DRG 770 ==
LOC: YASAS 09:35 → Y6N 15:55
PROC: HZ2ZZZZ Detoxification Services for Substance Abuse Treatment (ICD-10-PCS; principal; 2018-03-20)
DX: F11.23 Opioid dependence with withdrawal (principal); F10.230 Alcohol dependence with withdrawal, uncomplicated; F14.23 Cocaine dependence with withdrawal; F17.210 Nicotine dependence, cigarettes, uncomplicated; J45.20 Mild intermittent asthma, uncomplicated; B18.2 Chronic viral hepatitis C; Z86.69 Personal history of other diseases of the nervous system and sense organs; Z87.898 Personal history of other specified conditions
CPT/HCPCS: 36415; 80053; 85027; 86593; 86803; 87389; 93005; 93010; J0475

== ENCOUNTER 2018-05-06 16:21 | Inpatient (IN) | payer OTHER ==
[2018-05-06 17:45] VITALS: BMI 23.4
--- NOTE | 2018-05-06 22:44 | HP ---
COWS - Scale Resting Pulse: 2= [place] 101-120 Sweatin=Flushed/Facial Moisture Restless Observation: 1= Difficult to Sit Still Pupil Size: 1= Pupils >than Normal Bone or Joint Aches: 4=Acute Joint/Muscle Pain Runny Nose/ Eye Tearin= Runny Nose/Eyes GI Upset > 30mins: 3= Vomiting/Diarrhea (vomitig x 2, no diarrhea) Tremor Observation: 2= Slight Tremor Visible Yawning Observation: 0= None Anxiety or Irritability: 2=Irritable/Anxious Goose Flesh Skin: 0=Smooth Skin COWS Score: 19 CIWA Score Nausea/Vomitin-No Nausea/No Vomiting Muscle Tremors: 4-Moderate,w/Arms Extend Anxiety: 3 Agitation: 1-Slight > Activity Paroxysmal Sweats: 3 Orientation: 3-Disoriented Date>2 days Tacttile Disturbances: 0-None Auditory Disturbances: 0-None Visual Disturbances: 0-None Headache: 5-Severe CIWA-Ar Total Score: 19 - Admission Criteria [facility] Guidelines: Admission for Medically Managed Detox: Requires at least one of the followin. CIWA greater than 12 2. Seizures within the past 24 hours 3. Delirium tremens within the past 24 hours 4. Hallucinations within the past 24 hours 5. Acute intervention needed for co occurring medical disorder 6. Acute intervention needed for co occurring psychiatric disorder 7. Severe withdrawal that cannot be handled at a lower level of care (continued vomiting, continued diarrhea, abnormal vital signs) requiring intravenous medication and/or fluids 8. Admission [facility] Chief Complaint: Alcohol and heroin withdrawal symptoms Allergies/Adverse Reactions: Allergies Allergy/AdvReac Type Severity Reaction Status Date / Time Penicillins Allergy Verified 05/06/18 22:52 History of Present Illness: 32 years old male with 15 years of alcohol and heroin withdrawal symptoms is seeking admission to detox. Patient has been to previous detox and reports insignificant period of sobriety. He has medical history of asthma, Hep C, anemia, depression and anxiety. He denies suicide attempt or suicidal ideation at this time. Exam Limitations: No Limitations - Ebola screening Have you traveled outside of the country in the last 21 days: No (N) Have you had contact with anyone from an Ebola affected area: No Have you been sick,other than usual withdrawal symptoms: No Do you have a fever: No - Review of Systems Constitutional: Chills, Loss of Appetite, Malaise, Night Sweats, Changes in sleep EENT: reports: No Symptoms Reported Respiratory: reports: No Symptoms reported Cardiac: reports: No Symptoms Reported GI: reports: Nausea, Poor Appetite, Poor Fluid Intake, Vomiting, Abdominal cramping : reports: No Symptoms Reported Musculoskeletal: reports: Back Pain, Joint Pain, Muscle Weakness Integumentary: reports: Dryness, Flushing Neuro: reports: Headache, Tingling, Tremors Endocrine: reports: No Symptoms Reported Hematology: reports: No Symptoms Reported Psychiatric: reports: Judgement Intact, Anxious, Depressed Other Systems: Reviewed and Negative Patient History - Patient Medical History Hx Anemia: Yes (Not on medication) Hx Asthma: Yes (Albuterol and Symbicort) Hx Chronic Obstructive Pulmonary Disease (COPD): No Hx Cancer: No Hx Cardiac Disorders: No Hx Congestive Heart Failure: No Hx Hypertension: No Hx Hypercholesterolemia: No Hx Pacemaker: No HX Cerebrovascular Accident: No Hx Seizures: Yes (2013 - Not on medication) Hx Dementia: No Hx Diabetes: No Hx Gastrointestinal Disorders: No Hx Liver Disease: No Hx Genitourinary Disorders: No Hx Sexually Transmitted Disorders: No Hx Renal Disease (ESRD): No Hx Thyroid Disease: No Hx Human Immunodeficiency Virus (HIV): No (12/19 negative) Hx Hepatitis C: Yes (Not treated) Hx Depression: Yes (Not on medication) Hx Suicide Attempt: Yes (Denies suicidal ideation at this tme) Hx Bipolar Disorder: Yes Hx Schizophrenia: No Other Medical History: ANXIETY - Not on medication - Patient Surgical History Past Surgical History: No Hx Neurologic Surgery: No Hx Cataract Extraction: No Hx Cardiac Surgery: No Hx Lung Surgery: No Hx Breast Surgery: No Hx Breast Biopsy: No Hx Abdominal Surgery: No Hx Appendectomy: No Hx Cholecystectomy: No Hx Genitourinary Surgery: No Hx Section: No Hx Orthopedic Surgery: No Anesthesia Reaction: No - PPD History Implanted On Prior [facility] Admission?: Yes Date: 03/22/18 Results: 0 mm PPD to be Administered?: No - Reproductive History Patient is a Female of Child Bearing Age (11 -55 yrs old): No (MALE) - Smoking Cessation Smoking history: Never smoked Have you smoked in the past 12 months: No Aproximately how many cigarettes per day: 0 Cigars Per Day: 0 Hx Chewing Tobacco Use: No Initiated information on smoking cessation: No - Substance & Tx. History Hx Alcohol Use: Yes Hx Substance Use: Yes Substance Use Type: Alcohol, Heroin, Opiates Hx Substance Use Treatment: Yes ([facility]) - Substances Abused Alcohol Route: Oral Frequency: Daily Amount used: 3 PINTS VODKA Age of first use: 17 Date of Last Use: 05/06/18 Heroin Route: Injection Frequency: Daily Amount used: 1 BUNDLE Age of first use: 17 Date of Last Use: 05/06/18 Family Disease History - Family Disease History Family Disease History: Diabetes: Father (ETOH DEPENDENT), CA: Grandparent, Respiratory: Brother (ASTHMA), Other: Father Admission Physical Exam BHS - Vital Signs Vital Signs: Vital Signs - 24 hr 05/06/18 17:43 Temperature 98 F Pulse Rate 115 H Respiratory 18 Rate Blood Pressure 140/100 - Physical General Appearance: Yes: Severe Distress, Tremorous, Irritable, Sweating, Anxious HEENTM: Yes: EOMI, Normal ENT Inspection, Normal Voice, ANASTACIA Respiratory: Yes: Lungs Clear, Normal Breath Sounds, No Respiratory Distress Neck: Yes: Supple Breast: Yes: Breast Exam Deferred Cardiology: Yes: Regular Rhythm, Regular Rate Abdominal: Yes: Normal Bowel Sounds, Soft Genitourinary: Yes: Within Normal Limits Back: Yes: Normal Inspection Musculoskeletal: Yes: Back pain, Muscle Pain Extremities: Yes: Tremors Neurological: Yes: Alert, Normal Mood/Affect Integumentary: Yes: Warm, Track [place] (right and left hand) Lymphatic: Yes: Within Normal Limits - Diagnostic (1) Anxiety Current Visit: Yes Status: Chronic (2) History of seizure Current Visit: No Status: Inactive (3) Depression Current Visit: Yes Status: Chronic Qualifiers: Depression Type: unspecified Qualified Code(s): F32.9 - Major depressive disorder, single episode, unspecified (4) Opioid dependence with withdrawal Current Visit: Yes Status: Chronic (5) Alcohol dependence with uncomplicated withdrawal Current Visit: Yes Status: Chronic (6) Asthma Current Visit: Yes Status: Chronic Qualifiers: Asthma severity: mild Asthma persistence: intermittent Asthma complication type: uncomplicated Qualified Code(s): J45.20 - Mild intermittent asthma, uncomplicated (7) Hepatitis C Current Visit: Yes Status: Chronic Qualifiers: Viral hepatitis chronicity: chronic Hepatic coma status: without hepatic coma Qualified Code(s): B18.2 - Chronic viral hepatitis C (8) Nicotine dependence Current Visit: No Status: Chronic Qualifiers: Qualified Code(s): F17.210 - Nicotine dependence, cigarettes, uncomplicated (9) Sedative dependence Current Visit: Yes Status: Chronic Cleared for Admission [facility] - Detox or Rehab [facility] Level of Care: Medically Managed Detox Regimen/Protocol: Methadone/Valium [facility] Breath Alcohol Content Breath Alcohol Content: 0.103 Urine Drug Screen - Results Drug Screen Negative: No Urine Drug Screen Results: OPI-Opiates, BZO-Benzodiazepines, MTD-Methadone, FEN- Fentanyl
[2018-05-06] MEDS ORDERED: METHADONE HCL 10 MG TABLET (FOR DETOX USE ONLY) PO ONE ×2 (22:56→23:00)
[2018-05-06] MEDS ORDERED: MAGNESIUM CITRATE 300 ML BOTTLE PO PRN (22:56)
[2018-05-06] MEDS ORDERED: IBUPROFEN 400 MG TABLET (FP) PO PRN (22:56)
[2018-05-06] MEDS ORDERED: ACETAMINOPHEN 325 MG TABLET (FP) PO PRN (22:56)
[2018-05-06] MEDS ORDERED: MAG HYDROX/AL HYDROX/SIMETH 30 ML UNIT-DOSE CUP PO PRN (22:56)
[2018-05-06] MEDS ORDERED: MENTHOL/PHENOL 1 EACH UD MM PRN (22:56)
[2018-05-06] MEDS ORDERED: LOPERAMIDE HCL 2 MG CAPSULE PO PRN (22:56)
[2018-05-06] MEDS ORDERED: guaiFENesin/D-METHORPHAN HB 10 ML UNIT-DOSE CUPS PO PRN (22:56)
[2018-05-06] MEDS ORDERED: MAGNESIUM HYDROX 2400MG/30ML ORAL SUSPENSION 30 ML CUP PO PRN (22:56)
[2018-05-06] MEDS ORDERED: P-EPHED 60MG/TRIPROLIDI 2.5MG TABLET PO PRN (22:56)
[2018-05-06] MEDS ORDERED: diazePAM 5 MG TABLET PO ONE (22:56)
[2018-05-06] MEDS: MELATONIN 5 MG TABLETS PO PRN (23:40)
[2018-05-06] MEDS: diazePAM 5 MG TABLET PO SCH (23:43)
[2018-05-07] MEDS: ALBUTEROL SO4 8 GM HFA INHALER IH PRN ×3 (00:32→20:19)
[2018-05-07] MEDS: diazePAM 5 MG TABLET PO SCH ×3 (05:14→22:19)
[2018-05-07] MEDS ORDERED: METHADONE HCL 10 MG TABLET (FOR DETOX USE ONLY) PO SCH (10:00)
[2018-05-07 10:03] LABS: HEMATOCRIT 39.4 % (35.4-49); HEMOGLOBIN 12.3 GM/dL (11.7-16.9); MCH 25.5 pg (25.7-33.7); MCHC 31.3 g/dl (32.0-35.9); MEAN CELL VOLUME 81.6 fl (80-96); MEAN PLT VOLUME 8.1 fl (7.5-11.1); PLATELET COUNT 218 K/MM3 (134-434); RBC 4.83 M/mm3 (4.00-5.60); RDW 14.7 % (11.9-15.9)
[2018-05-07 10:07] LABS: ALBUMIN 3.2 g/dl (3.4-5.0); ALK PHOS 74 U/L (45-117); ANION GAP 7 MMOL/L (8-16); BILIRUBIN,TOTAL 0.3 mg/dL (0.2-1); BLOOD UREA NITROGEN 18 mg/dL (7-18); CALCIUM 7.9 mg/dL (8.5-10.1); CHLORIDE 102 mmol/L (98-107); CO2 32 mmol/L (21-32); CREATININE 0.8 mg/dL (0.55-1.3); GLUCOSE,RANDOM 107 mg/dL (74-106); SGOT/AST 36 U/L (15-37); SGPT/ALT 40 U/L (13-61); SODIUM 141 mmol/L (136-145); TOT PROT 6.3 g/dl (6.4-8.2)
[2018-05-07] MEDS: diazePAM 5 MG TABLET PO PRN ×2 (10:23→15:47)
[2018-05-07] MEDS: PRENATAL VITAMINS W/ FOLIC ACID TABLET (FP) PO SCH (10:23)
--- NOTE | 2018-05-07 12:02 | PN ---
[facility] CIWA - CIWA Score Nausea/Vomitin-Mild Nausea/No Vomiting Muscle Tremors: 1-None Visible, but [place] Anxiety: 0-No Anxiety, at Ease Agitation: 0-Normal Activity Paroxysmal Sweats: No Perspiration Orientation: 0-Oriented Tacttile Disturbances: 0-None Auditory Disturbances: 0-None Visual Disturbances: 0-None Headache: 0-None Present CIWA-Ar Total Score: 2 S COWS - Scale Resting Pulse: 1= [place] 81-100 Sweatin= Chills/Flushing Restless Observation: 0= Sits Still Pupil Size: 0= Normal to Room Light Bone or Joint Aches: 2= Severe Diffuse Aches Runny Nose/ Eye Tearin= Nasal Congestion GI Upset > 30mins: 1= Stomach Cramp Tremor Observation of Outstretched Hands: 1= Tremor [place], Not Seen Yawning Observation: 0= None Anxiety or Irritability: 0= None Goose Flesh Skin: 0=Smooth Skin COWS Score: 7 [facility] Progress Note (SOAP) Subjective: PT c/o whole body aches, admitted yesterday for heroin/opiate detox protocols. c /o whole body aches Obj Vital Signs - 24 hr 05/06/18 05/07/18 05/07/18 17:43 00:05 03:30 Temperature 98 F 97.4 F L Pulse Rate 115 H 104 H Respiratory 18 16 18 Rate Blood Pressure 140/100 131/70 05/07/18 05/07/18 06:15 10:17 Temperature 97.1 F L 98.6 F Pulse Rate 74 60 Respiratory 18 18 Rate Blood Pressure 110/69 113/70 Laboratory Tests 05/07/18 05/07/18 05/07/18 07:00 07:00 07:00 WBC 5.0 RBC 4.83 Hgb 12.3 Hct 39.4 MCV 81.6 MCH 25.5 L MCHC 31.3 L RDW 14.7 Plt Count 218 D MPV 8.1 Sodium 141 Potassium 4.0 Chloride 102 Carbon Dioxide 32 Anion Gap 7 L BUN 18 Creatinine 0.8 Creat Clearance w eGFR > 60 Random Glucose 107 H Calcium 7.9 L Total Bilirubin 0.3 AST 36 ALT 40 Alkaline Phosphatase 74 Total Protein 6.3 L Albumin 3.2 L RPR Titer Nonreactive Ass: alcohol/opioid withdrawal- continue detox protocols Plan: h/o asthma: on albuterol, will add prn nebulizer and steroid inhaler to be used twice a day Low Calcium- will add calcium
[2018-05-07] MEDS: ALBUTEROL SO4 0.083% IH SOL 2.5 MG/3 ML VIAL.NEB. NEB PRN ×2 (13:06→23:48)
[2018-05-07] MEDS: MOMETASONE FUROATE 110 MCG/IH INHALER IH SCH ×2 (13:17→22:21)
[2018-05-07] MEDS: CALCIUM CARBONATE 650 MG TABLET PO SCH ×2 (13:21→22:19)
--- NOTE | 2018-05-07 14:08 | CONSULT ---
[facility] Psychiatric Consult - Data Date of interview: 05/07/18 Admission source: [facility] Identifying data: Readmission to [facility] for this 32 y/o male seeking detoxification treatment on for heroin and alcohol dependence. Patient is single, a father of two, homeless ([facility]), unemployed and supported occasionally by relatives. Substance Abuse History: Confirmed by the patient in this session Details in current [facility] report : Smoking history: Never smoked. Have you smoked in the past 12 months: No. Aproximately how many cigarettes per day: 0. Cigars Per Day: 0. Hx Chewing Tobacco Use: No. Initiated information on smoking cessation : No. - Substance & Tx. History. Hx Alcohol Use: Yes. Hx Substance Use: Yes. Substance Use Type: Alcohol, Heroin, Opiates. Hx Substance Use Treatment: Yes ([facility]). - Substances Abused. Alcohol. Route: Oral. Frequency: Daily. Amount used: 3 PINTS VODKA. Age of first use: 17. Date of Last Use: . Heroin. Route: Injection. Frequency: Daily. Amount used: 1 BUNDLE. Age of first use: 17. Date of Last Use: 05/06/18 Medical History: Hepatitis C and bronchial asthma. Psychiatric History: Onset of psychiatric disturbances : 2012 ([facility], [place]). Precipitant : of biological father. Several hospitalizations followed : [facility] in [facility], [facility] in [facility]. Diagnosed with Bipolar Disorder.Mr Moody indicates that he has not had a psychiatric OPD care provider for several months. History of past maintenance on a regimen of depakote, abilify and gabapentin (doses not recalled). Chronically non-adherent to medications. According to records, the patient has also been tried on other agents which include lexapro, risperdal and remeron. History of one suicide attempt via overdose with clonidine (2012). Physical/Sexual Abuse/Trauma History: Not discussed. Patient declines. Additional Comment: Urine Drug Screen Results: OPI-Opiates, BZO-Benzodiazepines , MTD-Methadone, FEN-Fentanyl. Noted. Mental Status Exam - Mental Status Exam Alert and Oriented to: Time, Place, Person Cognitive Function: Good Patient Appearance: Well Groomed Mood: Anxious, Apprehensive, Hopeful Affect: Mood Congruent Patient Behavior: Fatigued, Appropriate, Cooperative Speech Pattern: Clear Voice Loudness: Normal Thought Process: Intact, Goal Oriented Thought Disorder: Not Present Hallucinations: Denies Suicidal Ideation: Denies Homicidal Ideation: Denies Insight/Judgement: Poor Sleep: Poorly, Difficulty falling asleep Appetite: Good Muscle strength/Tone: Normal Gait/Station: Normal Psychiatric Findings - Problem List ([place] 1, 2,3) (1) Alcohol dependence with uncomplicated withdrawal Current Visit: Yes Status: Acute (2) Opioid dependence with withdrawal Current Visit: Yes Status: Acute (3) Substance induced mood disorder Current Visit: Yes Status: Acute (4) Insomnia Current Visit: Yes Status: Acute - Initial Treatment Plan Initial Treatment Plan: Psychoeducation. Detoxification. Sleep hygiene. AA meetings. Patient declines to resume depakote and aripriprazole and requests gabapentin for alleviation of anxiety. Side effects/benefits of gabapentin reviewed with the patient. Gabapentin 200 mg po tid. Ordered. Mr Moody is agreeable with this plan of care. Observation.
[2018-05-07 17:37] LABS: URINE APPEARANCE CLEAR; URINE BILIRUBIN NEGATIVE (<2.0 mg/dL); URINE COLOR YELLOW; URINE GLUCOSE (UA) NEGATIVE (NEGATIVE); URINE KETONE NEGATIVE (NEGATIVE); URINE LEUK ESTERASE NEGATIVE (NEGATIVE); URINE NITRITE NEGATIVE (NEGATIVE); URINE PROTEIN NEGATIVE (NEGATIVE)
[2018-05-07] MEDS ORDERED: THIAMINE HCL 100 MG TABLET (FP) PO SCH (22:00)
[2018-05-07] MEDS: GABAPENTIN 100 MG CAPSULE (FP) PO SCH (22:19)
[2018-05-07] MEDS: MELATONIN 5 MG TABLETS PO PRN (22:20)
[2018-05-08] MEDS: diazePAM 5 MG TABLET PO PRN (05:13)
[2018-05-08] MEDS: GABAPENTIN 100 MG CAPSULE (FP) PO SCH ×2 (05:13→13:24)
[2018-05-08] MEDS: ALBUTEROL SO4 0.083% IH SOL 2.5 MG/3 ML VIAL.NEB. NEB PRN ×2 (05:20→11:54)
[2018-05-08 09:09] VITALS: BP 128/82; PULSE 82; TEMP 97.1
[2018-05-08] MEDS: ALBUTEROL SO4 8 GM HFA INHALER IH PRN (09:45)
[2018-05-08] MEDS ORDERED: diazePAM 5 MG TABLET PO SCH (10:00)
[2018-05-08] MEDS ORDERED: METHADONE HCL 5 MG TABLET (FOR DETOX USE ONLY) PO SCH (10:00)
[2018-05-08] MEDS: MOMETASONE FUROATE 110 MCG/IH INHALER IH SCH (10:02)
[2018-05-08] MEDS: CALCIUM CARBONATE 650 MG TABLET PO SCH (10:02)
[2018-05-08] MEDS: PRENATAL VITAMINS W/ FOLIC ACID TABLET (FP) PO SCH (10:03)
[2018-05-08] MEDS ORDERED: LORATADINE 10 MG TABLET PO SCH (10:15)
--- NOTE | 2018-05-08 13:30 | PN ---
[facility] CIWA - CIWA Score Nausea/Vomitin-Mild Nausea/No Vomiting Muscle Tremors: 3 Anxiety: 3 Agitation: 3 Paroxysmal Sweats: 2 Orientation: 0-Oriented Tacttile Disturbances: 0-None Auditory Disturbances: 0-None Visual Disturbances: 0-None Headache: 0-None Present CIWA-Ar Total Score: 12 BHS COWS - Scale Resting Pulse: 1= [place] 81-100 Sweatin= Chills/Flushing Restless Observation: 1= Difficult to Sit Still Pupil Size: 0= Normal to Room Light Bone or Joint Aches: 1= Mild Discomfort Runny Nose/ Eye Tearin= Runny Nose/Eyes GI Upset > 30mins: 1= Stomach Cramp Tremor Observation of Outstretched Hands: 2= Slight Tremor Visible Yawning Observation: 0= None Anxiety or Irritability: 2=Irritable/Anxious Goose Flesh Skin: 0=Smooth Skin COWS Score: 11 S Progress Note (SOAP) Subjective: Body ache, stomach ache, nausea, diarrhea, sweating, sneezing, c/o left eyelid swelling since last night and reports h/o seasonal allergies Objective: 05/08/18 13:26 Last Vital Signs Temp Pulse Resp BP Pulse Ox 97.1 F L 82 19 128/82 05/08/18 09:08 05/08/18 09:08 05/08/18 09:08 05/08/18 09:08 Eyes: left upper eyelid with mild edema, no corneal erythema or conjunctiva discharge/drainage, PERRL, EOMI Laboratory Tests 05/07/18 05/07/18 05/07/18 07:00 07:00 07:00 WBC 5.0 RBC 4.83 Hgb 12.3 Hct 39.4 MCV 81.6 MCH 25.5 L MCHC 31.3 L RDW 14.7 Plt Count 218 D MPV 8.1 Sodium 141 Potassium 4.0 Chloride 102 Carbon Dioxide 32 Anion Gap 7 L BUN 18 Creatinine 0.8 Creat Clearance w eGFR > 60 Random Glucose 107 H Calcium 7.9 L Total Bilirubin 0.3 AST 36 ALT 40 Alkaline Phosphatase 74 Total Protein 6.3 L Albumin 3.2 L Urine Color Urine Appearance Urine pH Ur Specific [place] Urine Protein Urine Glucose (UA) Urine Ketones Urine Blood Urine Nitrite Urine Bilirubin Urine Urobilinogen Ur Leukocyte Esterase RPR Titer Nonreactive 05/07/18 16:45 WBC RBC Hgb Hct MCV MCH MCHC RDW Plt Count MPV Sodium Potassium Chloride Carbon Dioxide Anion Gap BUN Creatinine Creat Clearance w eGFR Random Glucose Calcium Total Bilirubin AST ALT Alkaline Phosphatase Total Protein Albumin Urine Color Yellow Urine Appearance Clear Urine pH 6.0 Ur Specific [place] 1.025 Urine Protein Negative Urine Glucose (UA) Negative Urine Ketones Negative Urine Blood Negative Urine Nitrite Negative Urine Bilirubin Negative Urine Urobilinogen 2.0 Ur Leukocyte Esterase Negative RPR Titer Labs reviewed Assessment: 05/08/18 13:27 Withdrawal symptoms Noted with left eyelid swelling Plan: Continue detox Encouraged PO water intake Left eyelid swelling due to allergic rhinitis, claritin 10mg PO daily ordered
--- NOTE | 2018-05-08 14:32 | DS ---
[facility] Detox Discharge Summary Admission Date: 05/06/18 Discharge Date: 05/08/18 - History Present History: Alcohol Dependence, Opioid Dependence Additional Comments: Patient left AMA despite encouragement from staff to stay and complete detox. As per patient, he is not getting enough medication so he decided to leave. Patient instructed to call [phone] MERLYN if feeling sick or any withdrawal symptoms and to see his PCP within 3 days. Pertinent Past History: Asthma Alcohol dependence Hepatitis C Nicotine dependence Opioid dependence Depression Anxiety - Physical Exam Results Vital Signs: Vital Signs Temperature 97.1 F L 05/08/18 09:08 Pulse Rate 82 05/08/18 09:08 Respiratory Rate 19 05/08/18 09:08 Blood Pressure 128/82 05/08/18 09:08 O2 Sat by Pulse Oximetry (%) Pertinent Admission Physical Exam Findings: Withdrawal symptoms Laboratory Tests 05/07/18 05/07/18 05/07/18 07:00 07:00 07:00 WBC 5.0 RBC 4.83 Hgb 12.3 Hct 39.4 MCV 81.6 MCH 25.5 L MCHC 31.3 L RDW 14.7 Plt Count 218 D MPV 8.1 Sodium 141 Potassium 4.0 Chloride 102 Carbon Dioxide 32 Anion Gap 7 L BUN 18 Creatinine 0.8 Creat Clearance w eGFR > 60 Random Glucose 107 H Calcium 7.9 L Total Bilirubin 0.3 AST 36 ALT 40 Alkaline Phosphatase 74 Total Protein 6.3 L Albumin 3.2 L Urine Color Urine Appearance Urine pH Ur Specific [place] Urine Protein Urine Glucose (UA) Urine Ketones Urine Blood Urine Nitrite Urine Bilirubin Urine Urobilinogen Ur Leukocyte Esterase RPR Titer Nonreactive 05/07/18 16:45 WBC RBC Hgb Hct MCV MCH MCHC RDW Plt Count MPV Sodium Potassium Chloride Carbon Dioxide Anion Gap BUN Creatinine Creat Clearance w eGFR Random Glucose Calcium Total Bilirubin AST ALT Alkaline Phosphatase Total Protein Albumin Urine Color Yellow Urine Appearance Clear Urine pH 6.0 Ur Specific [place] 1.025 Urine Protein Negative Urine Glucose (UA) Negative Urine Ketones Negative Urine Blood Negative Urine Nitrite Negative Urine Bilirubin Negative Urine Urobilinogen 2.0 Ur Leukocyte Esterase Negative RPR Titer Labs reviewed - Medication Discharge Medications: Ambulatory Orders Albuterol Sulfate Inhaler - [Ventolin HFA Inhaler -] 2 inh PO Q4H PRN 12/31/13 Gabapentin 600 mg PO TID 12/03/18 traZODone HCL [Trazodone HCl] 100 mg PO HS 05/06/18 - Diagnosis (1) Allergic rhinitis Current Visit: Yes Status: Acute (2) Alcohol dependence with uncomplicated withdrawal Current Visit: Yes Status: Acute (3) Anxiety Current Visit: Yes Status: Chronic (4) Asthma Current Visit: Yes Status: Chronic Qualifiers: Asthma severity: mild Asthma persistence: intermittent Asthma complication type: uncomplicated Qualified Code(s): J45.20 - Mild intermittent asthma, uncomplicated (5) Depression Current Visit: Yes Status: Chronic Qualifiers: Depression Type: unspecified Qualified Code(s): F32.9 - Major depressive disorder, single episode, unspecified (6) Hepatitis C Current Visit: Yes Status: Chronic Qualifiers: Viral hepatitis chronicity: chronic Hepatic coma status: without hepatic coma Qualified Code(s): B18.2 - Chronic viral hepatitis C (7) Opioid dependence Current Visit: Yes Status: Acute (8) Nicotine dependence Current Visit: Yes Status: Chronic Qualifiers: Qualified Code(s): F17.210 - Nicotine dependence, cigarettes, uncomplicated - AMA Did Patient Leave Against Medical Advice: Yes (Instructed to call 911 [facility] if feeling sick or withdrawal symptoms)
[2018-05-10] MEDS ORDERED: METHADONE HCL 10 MG TABLET (FOR DETOX USE ONLY) PO SCH (10:00)
[2018-05-10] MEDS ORDERED: diazePAM 5 MG TABLET PO SCH (10:00)
[2018-05-11] MEDS ORDERED: METHADONE HCL 5 MG TABLET (FOR DETOX USE ONLY) PO SCH (06:00)
== END 2018-05-08 13:48 | disposition left against medical advice (07) | DRG 770 ==
LOC: YASAS 16:21 → Y3N 23:10
PROC: HZ2ZZZZ Detoxification Services for Substance Abuse Treatment (ICD-10-PCS; principal; 2018-05-06)
DX: F11.23 Opioid dependence with withdrawal (principal); F10.230 Alcohol dependence with withdrawal, uncomplicated; F13.20 Sedative, hypnotic or anxiolytic dependence, uncomplicated; F17.210 Nicotine dependence, cigarettes, uncomplicated; F19.24 Other psychoactive substance dependence with psychoactive substance-induced mood disorder; F41.9 Anxiety disorder, unspecified; F31.9 Bipolar disorder, unspecified; B18.2 Chronic viral hepatitis C; D64.9 Anemia, unspecified; G47.00 Insomnia, unspecified; J45.20 Mild intermittent asthma, uncomplicated; J30.2 Other seasonal allergic rhinitis; E83.51 Hypocalcemia; Z86.69 Personal history of other diseases of the nervous system and sense organs; Z91.5 Personal history of self-harm; Z88.0 Allergy status to penicillin; Z59.0 Homelessness
CPT/HCPCS: 36415; 80053; 81003; 85027; 86593; 94640

== ENCOUNTER 2018-10-23 12:18 | Inpatient (IN) | payer OTHER ==
[2018-10-23 14:11] VITALS: BMI 23.6
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
[2018-10-23] MEDS ORDERED: IBUPROFEN 400 MG TABLET (FP) PO PRN (16:20)
[2018-10-23] MEDS ORDERED: MAGNESIUM HYDROX 2400MG/30ML ORAL SUSPENSION 30 ML CUP PO PRN (16:20)
[2018-10-23] MEDS ORDERED: ACETAMINOPHEN 325 MG TABLET (FP) PO PRN ×2 (16:20)
[2018-10-23] MEDS ORDERED: MENTHOL/PHENOL 1 EACH UD MM PRN (16:20)
[2018-10-23] MEDS ORDERED: BISMUTH SUBSALICYLATE 524 MG/30 ML UD PO PRN (16:20)
[2018-10-23] MEDS ORDERED: cloNIDine HCL 0.1 MG TABLET PO PRN (16:20)
[2018-10-23] MEDS ORDERED: METHADONE HCL 10 MG TABLET (FOR DETOX USE ONLY) PO ONE ×2 (16:20→23:00)
[2018-10-23] MEDS ORDERED: MAGNESIUM CITRATE 300 ML BOTTLE PO PRN (16:20)
[2018-10-23] MEDS ORDERED: MELATONIN 5 MG TABLETS PO PRN (16:20)
[2018-10-23] MEDS ORDERED: PROCHLORPERAZINE MALEATE 5 MG TABLET PO PRN (16:20)
[2018-10-23] MEDS ORDERED: diazePAM 5 MG TABLET PO ONE (17:30)
[2018-10-23] MEDS: ALBUTEROL SO4 8 GM HFA INHALER IH PRN ×2 (18:06→22:23)
[2018-10-23] MEDS ORDERED: CEPHALEXIN MONOHYDRATE 500 MG CAPSULE (UD) PO SCH (22:00)
[2018-10-23] MEDS: SULFAMETHOXAZOLE/TRIMETHOPRIM 800MG/160MG D.S. TABLET PO SCH (22:21)
[2018-10-23] MEDS: diazePAM 5 MG TABLET PO SCH (22:21)
[2018-10-23] MEDS: THIAMINE HCL 100 MG TABLET (FP) PO SCH (22:21)
[2018-10-23] MEDS: GABAPENTIN 300 MG CAPSULE (FP) PO SCH (22:21)
[2018-10-23] MEDS: BACITRACIN 0.9 GM PACKET TP SCH (22:24)
[2018-10-23] MEDS: AMMONIUM LACTATE 12% LOTION 225 GM BOTTLE TP SCH (22:24)
[2018-10-24] MEDS: GABAPENTIN 300 MG CAPSULE (FP) PO SCH ×3 (07:55→22:50)
[2018-10-24] MEDS: diazePAM 5 MG TABLET PO SCH ×3 (07:55→22:50)
[2018-10-24] MEDS: ALBUTEROL SO4 8 GM HFA INHALER IH PRN (08:09)
[2018-10-24] MEDS ORDERED: METHADONE HCL 10 MG TABLET (FOR DETOX USE ONLY) PO ONE (10:00)
--- NOTE | 2018-10-24 10:14 | PN ---
[facility] CIWA - CIWA Score Nausea/Vomitin-Mild Nausea/No Vomiting Muscle Tremors: 4-Moderate,w/Arms Extend Anxiety: 3 Agitation: 3 Paroxysmal Sweats: 1-Minimal Palms Moist Orientation: 1-Uncertain about Date Tacttile Disturbances: 0-None Auditory Disturbances: 0-None Visual Disturbances: 0-None Headache: 2-Mild CIWA-Ar Total Score: 15 S COWS - Scale Resting Pulse: 1= MD 81-100 Sweatin= Chills/Flushing Restless Observation: 0= Sits Still Pupil Size: 0= Normal to Room Light Bone or Joint Aches: 1= Mild Discomfort Runny Nose/ Eye Tearin= Nasal Congestion GI Upset > 30mins: 1= Stomach Cramp Tremor Observation of Outstretched Hands: 1= Tremor [place], Not Seen Yawning Observation: 1= 1-2x During Session Anxiety or Irritability: 1=Feels Anxious/Irritable Goose Flesh Skin: 0=Smooth Skin COWS Score: 8 [facility] Progress Note (SOAP) Subjective: anxiety tired restlessness doing well with methadone and valium detox regimen Objective: 10/24/18 10:16 Vital Signs Temperature 96.1 F L 10/24/18 09:35 Pulse Rate 84 10/24/18 09:35 Respiratory Rate 18 10/24/18 09:35 Blood Pressure 112/55 L 10/24/18 09:35 O2 Sat by Pulse Oximetry (%) Laboratory Last Values Sodium 141 mmol/L (136-145) 10/24/18 07:00 Potassium 4.1 mmol/L (3.5-5.1) 10/24/18 07:00 Chloride 104 mmol/L (98-107) 10/24/18 07:00 Carbon Dioxide 32 mmol/L (21-32) 10/24/18 07:00 Anion Gap 5 MMOL/L (8-16) L 10/24/18 07:00 BUN 12 mg/dL (7-18) 10/24/18 07:00 Creatinine 0.7 mg/dL (0.55-1.3) 10/24/18 07:00 Est GFR (CKD-EPI)AfAm 143.71 10/24/18 07:00 Est GFR (CKD-EPI)NonAf 123.99 10/24/18 07:00 Random Glucose 74 mg/dL (74-106) 10/24/18 07:00 Calcium 8.6 mg/dL (8.5-10.1) 10/24/18 07:00 Total Bilirubin 0.7 mg/dL (0.2-1) 10/24/18 07:00 AST 57 U/L (15-37) H 10/24/18 07:00 ALT 93 U/L (13-61) H 10/24/18 07:00 Alkaline Phosphatase 86 U/L (45-117) 10/24/18 07:00 Total Protein 6.4 g/dl (6.4-8.2) 10/24/18 07:00 Albumin 3.1 g/dl (3.4-5.0) L 10/24/18 07:00 lab noted Assessment: 10/24/18 10:17 alcohol and opiate withdrawal sx Plan: continue detox discuss medication assisted maintenance treatment program
[2018-10-24 10:16] LABS: ALBUMIN 3.1 g/dl (3.4-5.0); BILIRUBIN,TOTAL 0.7 mg/dL (0.2-1); CALCIUM 8.6 mg/dL (8.5-10.1); CREATININE 0.7 mg/dL (0.55-1.3); HEMATOCRIT 40.7 % (35.4-49); HEMOGLOBIN 13.4 GM/dL (11.7-16.9); MCH 27.7 pg (25.7-33.7); MCHC 32.8 g/dl (32.0-35.9); MEAN CELL VOLUME 84.5 fl (80-96); MEAN PLT VOLUME 7.9 fl (7.5-11.1); PLATELET COUNT 305 K/MM3 (134-434); POTASSIUM 4.1 mmol/L (3.5-5.1); RBC 4.81 M/mm3 (4.00-5.60); RDW 13.8 % (11.9-15.9); TOT PROT 6.4 g/dl (6.4-8.2); WHITE BLOOD COUNT 6.7 K/mm3 (4.0-10.0)
[2018-10-24] MEDS: SULFAMETHOXAZOLE/TRIMETHOPRIM 800MG/160MG D.S. TABLET PO SCH ×2 (10:42→22:50)
[2018-10-24] MEDS: PRENATAL VITAMINS W/ FOLIC ACID TABLET (FP) PO SCH (10:42)
[2018-10-24] MEDS: BACITRACIN 0.9 GM PACKET TP SCH ×2 (10:42→22:50)
[2018-10-24] MEDS: AMMONIUM LACTATE 12% LOTION 225 GM BOTTLE TP SCH ×2 (10:44→23:12)
[2018-10-24] MEDS: ALBUTEROL SO4 2.5/IPRATROPIUM 0.5 INH SOL 3 ML VIAL.NEB. NEB PRN ×2 (13:08→18:56)
--- NOTE | 2018-10-24 13:16 | EKG ---
Test Reason : Blood Pressure : / mmHG Vent. Rate : 074 BPM Atrial Rate : 074 BPM P-R Int : 156 ms QRS Dur : 100 ms QT Int : 416 ms P-R-T Axes : 074 063 069 degrees QTc Int : 461 ms NORMAL SINUS RHYTHM WITH SINUS ARRHYTHMIA NORMAL ECG WHEN COMPARED WITH ECG OF 20-MAR-2018 16:18, NO SIGNIFICANT CHANGE WAS FOUND Confirmed by FIORDALIZA ESTEVEZ, SHANNAN ([id number]) on 10/24/2018 1:16:19 PM Referred By: RIZWAN Confirmed By:SHANNAN MANCERA MD
[2018-10-24] MEDS: diazePAM 5 MG TABLET PO PRN (18:57)
[2018-10-24] MEDS: THIAMINE HCL 100 MG TABLET (FP) PO SCH (22:50)
[2018-10-24] MEDS: METHOCARBAMOL 500 MG TABLET PO PRN (22:54)
[2018-10-24] MEDS: traZODone HCL 50 MG TABLET (FP) PO PRN (22:54)
[2018-10-25] MEDS: ALBUTEROL SO4 8 GM HFA INHALER IH PRN ×3 (02:21→22:27)
[2018-10-25] MEDS: diazePAM 5 MG TABLET PO PRN (06:00)
[2018-10-25] MEDS: GABAPENTIN 300 MG CAPSULE (FP) PO SCH ×3 (06:00→22:23)
[2018-10-25] MEDS: ALBUTEROL SO4 2.5/IPRATROPIUM 0.5 INH SOL 3 ML VIAL.NEB. NEB PRN ×2 (08:25→17:55)
[2018-10-25] MEDS ORDERED: METHADONE HCL 10 MG TABLET (FOR DETOX USE ONLY) PO ONE (10:00)
[2018-10-25] MEDS: BACITRACIN 0.9 GM PACKET TP SCH ×2 (10:20→22:23)
[2018-10-25] MEDS: PRENATAL VITAMINS W/ FOLIC ACID TABLET (FP) PO SCH (10:20)
[2018-10-25] MEDS: diazePAM 5 MG TABLET PO SCH ×2 (10:21→22:23)
[2018-10-25] MEDS: SULFAMETHOXAZOLE/TRIMETHOPRIM 800MG/160MG D.S. TABLET PO SCH ×2 (10:21→22:23)
[2018-10-25] MEDS: MAG HYDROX/AL HYDROX/SIMETH 30 ML UNIT-DOSE CUP PO PRN ×2 (10:23→22:28)
[2018-10-25] MEDS: METHOCARBAMOL 500 MG TABLET PO PRN ×2 (10:23→22:26)
[2018-10-25] MEDS: AMMONIUM LACTATE 12% LOTION 225 GM BOTTLE TP SCH ×2 (10:26→22:24)
[2018-10-25] MEDS: BUDESONIDE/FORMETEROL FUMARATE 160/4.5 mcg INHALER IH SCH ×2 (11:18→22:24)
[2018-10-25] MEDS: MONTELUKAST NA 10 MG TABLET PO SCH (12:44)
--- NOTE | 2018-10-25 16:26 | PN ---
[facility] CIWA - CIWA Score Nausea/Vomitin-No Nausea/No Vomiting Muscle Tremors: 2 Anxiety: 3 Agitation: 2 Paroxysmal Sweats: 2 Orientation: 0-Oriented Tacttile Disturbances: 0-None Auditory Disturbances: 0-None Visual Disturbances: 2-Mild Sensitivity Headache: 0-None Present CIWA-Ar Total Score: 11 S COWS - Scale Resting Pulse: 2= [place] 101-120 Sweatin= Chills/Flushing Restless Observation: 1= Difficult to Sit Still Pupil Size: 0= Normal to Room Light Bone or Joint Aches: 2= Severe Diffuse Aches Runny Nose/ Eye Tearin= None GI Upset > 30mins: 0= None Tremor Observation of Outstretched Hands: 2= Slight Tremor Visible Yawning Observation: 1= 1-2x During Session Anxiety or Irritability: 2=Irritable/Anxious Goose Flesh Skin: 3=Piloerection COWS Score: 14 S Progress Note (SOAP) Subjective: Tremors, Anxious, Body Aches. Objective: PATIENT A & O X 3, OBSERVED AMBULATING ON UNIT UNASSISTED. IN NO ACUTE DISTRESS. 10/25/18 16:24 Laboratory Tests 10/24/18 10/24/18 10/24/18 07:00 07:00 07:00 WBC 6.7 RBC 4.81 Hgb 13.4 Hct 40.7 MCV 84.5 MCH 27.7 MCHC 32.8 RDW 13.8 Plt Count 305 D MPV 7.9 Sodium 141 Potassium 4.1 Chloride 104 Carbon Dioxide 32 Anion Gap 5 L BUN 12 Creatinine 0.7 Est GFR (CKD-EPI)AfAm 143.71 Est GFR (CKD-EPI)NonAf 123.99 Random Glucose 74 Calcium 8.6 Total Bilirubin 0.7 AST 57 H ALT 93 H Alkaline Phosphatase 86 Total Protein 6.4 Albumin 3.1 L RPR Titer Nonreactive HIV 1&2 Antibody Screen HIV P24 Antigen 10/24/18 07:00 WBC RBC Hgb Hct MCV MCH MCHC RDW Plt Count MPV Sodium Potassium Chloride Carbon Dioxide Anion Gap BUN Creatinine Est GFR (CKD-EPI)AfAm Est GFR (CKD-EPI)NonAf Random Glucose Calcium Total Bilirubin AST ALT Alkaline Phosphatase Total Protein Albumin RPR Titer HIV 1&2 Antibody Screen Negative HIV P24 Antigen Negative LABS NOTED. Assessment: 10/25/18 16:28 WITHDRAWAL SYMPTOMS. ELEVATED LIVER ENZYMES (AST, ALT). 10/25/18 16:29 Plan: CONTINUE DETOX. INCREASE DAILY PO FLUID / WATER INTAKE.
[2018-10-25] MEDS ORDERED: MONTELUKAST NA 10 MG TABLET PO SCH (22:00)
[2018-10-25] MEDS: THIAMINE HCL 100 MG TABLET (FP) PO SCH (22:23)
[2018-10-25] MEDS: traZODone HCL 50 MG TABLET (FP) PO PRN (22:25)
[2018-10-26] MEDS ORDERED: diazePAM 5 MG TABLET PO SCH (06:00)
[2018-10-26] MEDS: GABAPENTIN 300 MG CAPSULE (FP) PO SCH (08:13)
[2018-10-26] MEDS ORDERED: METHADONE HCL 10 MG TABLET (FOR DETOX USE ONLY) PO ONE (10:00)
[2018-10-26] MEDS ORDERED: predniSONE 20 MG TABLET (UD) PO SCH (10:00)
[2018-10-26] MEDS: BUDESONIDE/FORMETEROL FUMARATE 160/4.5 mcg INHALER IH SCH (10:49)
[2018-10-26] MEDS: BACITRACIN 0.9 GM PACKET TP SCH (10:49)
[2018-10-26] MEDS: AMMONIUM LACTATE 12% LOTION 225 GM BOTTLE TP SCH (10:50)
[2018-10-26] MEDS: SULFAMETHOXAZOLE/TRIMETHOPRIM 800MG/160MG D.S. TABLET PO SCH (10:50)
[2018-10-26] MEDS: PRENATAL VITAMINS W/ FOLIC ACID TABLET (FP) PO SCH (10:50)
[2018-10-26] MEDS: MONTELUKAST NA 10 MG TABLET PO SCH (10:50)
--- NOTE | 2018-10-26 12:00 | PN ---
S Progress Note (SOAP) Subjective: Cough, SOB,generalized weakness and interrupted sleep Reports worsening asthma since admission to [facility] Objective: 10/26/18 11:55 Vital Signs 10/26/18 10/26/18 07:17 09:42 Temperature 97.9 F 97.2 F L Pulse Rate 63 91 H Respiratory 20 18 Rate Blood Pressure 102/64 138/87 Laboratory Last Values WBC 6.7 K/mm3 (4.0-10.0) 10/24/18 07:00 RBC 4.81 M/mm3 (4.00-5.60) 10/24/18 07:00 Hgb 13.4 GM/dL (11.7-16.9) 10/24/18 07:00 Hct 40.7 % (35.4-49) 10/24/18 07:00 MCV 84.5 fl (80-96) 10/24/18 07:00 MCH 27.7 pg (25.7-33.7) 10/24/18 07:00 MCHC 32.8 g/dl (32.0-35.9) 10/24/18 07:00 RDW 13.8 % (11.9-15.9) 10/24/18 07:00 Plt Count 305 K/MM3 (134-434) D 10/24/18 07:00 MPV 7.9 fl (7.5-11.1) 10/24/18 07:00 Sodium 141 mmol/L (136-145) 10/24/18 07:00 Potassium 4.1 mmol/L (3.5-5.1) 10/24/18 07:00 Chloride 104 mmol/L (98-107) 10/24/18 07:00 Carbon Dioxide 32 mmol/L (21-32) 10/24/18 07:00 Anion Gap 5 MMOL/L (8-16) L 10/24/18 07:00 BUN 12 mg/dL (7-18) 10/24/18 07:00 Creatinine 0.7 mg/dL (0.55-1.3) 10/24/18 07:00 Est GFR (CKD-EPI)AfAm 143.71 10/24/18 07:00 Est GFR (CKD-EPI)NonAf 123.99 10/24/18 07:00 Random Glucose 74 mg/dL (74-106) 10/24/18 07:00 Calcium 8.6 mg/dL (8.5-10.1) 10/24/18 07:00 Total Bilirubin 0.7 mg/dL (0.2-1) 10/24/18 07:00 AST 57 U/L (15-37) H 10/24/18 07:00 ALT 93 U/L (13-61) H 10/24/18 07:00 Alkaline Phosphatase 86 U/L (45-117) 10/24/18 07:00 Total Protein 6.4 g/dl (6.4-8.2) 10/24/18 07:00 Albumin 3.1 g/dl (3.4-5.0) L 10/24/18 07:00 RPR Titer Nonreactive (NONREACTIVE) 10/24/18 07:00 HIV 1&2 Antibody Screen Negative 10/24/18 07:00 HIV P24 Antigen Negative 10/24/18 07:00 Labs noted-no panic values Lungs with scattered inspiratory wheeze Mild use of accessory muscles Assessment: 10/26/18 11:57 Withdrawal sx Asthma with exacerbation Plan: Continue albuterol, bactrim and inhalation treatment with symbiocort Start prednisone 40mg PO QD Monitor d/w nursing
--- NOTE | 2018-10-26 14:15 | DS ---
[facility] Detox Discharge Summary Admission Date: 10/23/18 Discharge Date: 10/26/18 - History Present History: Alcohol Dependence, Cannabis Dependence, Cocaine Dependence, Opioid Dependence, Sedative Dependence Pertinent Past History: Asthma and withdrawal related seizures Hep C+ - Physical Exam Results Vital Signs: Vital Signs Temperature 97.2 F L 10/26/18 09:42 Pulse Rate 91 H 10/26/18 09:42 Respiratory Rate 18 10/26/18 09:42 Blood Pressure 138/87 10/26/18 09:42 O2 Sat by Pulse Oximetry (%) Pertinent Admission Physical Exam Findings: Withdrawal sx Laboratory Last Values WBC 6.7 K/mm3 (4.0-10.0) 10/24/18 07:00 RBC 4.81 M/mm3 (4.00-5.60) 10/24/18 07:00 Hgb 13.4 GM/dL (11.7-16.9) 10/24/18 07:00 Hct 40.7 % (35.4-49) 10/24/18 07:00 MCV 84.5 fl (80-96) 10/24/18 07:00 MCH 27.7 pg (25.7-33.7) 10/24/18 07:00 MCHC 32.8 g/dl (32.0-35.9) 10/24/18 07:00 RDW 13.8 % (11.9-15.9) 10/24/18 07:00 Plt Count 305 K/MM3 (134-434) D 10/24/18 07:00 MPV 7.9 fl (7.5-11.1) 10/24/18 07:00 Sodium 141 mmol/L (136-145) 10/24/18 07:00 Potassium 4.1 mmol/L (3.5-5.1) 10/24/18 07:00 Chloride 104 mmol/L (98-107) 10/24/18 07:00 Carbon Dioxide 32 mmol/L (21-32) 10/24/18 07:00 Anion Gap 5 MMOL/L (8-16) L 10/24/18 07:00 BUN 12 mg/dL (7-18) 10/24/18 07:00 Creatinine 0.7 mg/dL (0.55-1.3) 10/24/18 07:00 Est GFR (CKD-EPI)AfAm 143.71 05/23/19 07:00 Est GFR (CKD-EPI)NonAf 123.99 10/24/18 07:00 Random Glucose 74 mg/dL (74-106) 10/24/18 07:00 Calcium 8.6 mg/dL (8.5-10.1) 10/24/18 07:00 Total Bilirubin 0.7 mg/dL (0.2-1) 10/24/18 07:00 AST 57 U/L (15-37) H 10/24/18 07:00 ALT 93 U/L (13-61) H 10/24/18 07:00 Alkaline Phosphatase 86 U/L (45-117) 10/24/18 07:00 Total Protein 6.4 g/dl (6.4-8.2) 10/24/18 07:00 Albumin 3.1 g/dl (3.4-5.0) L 10/24/18 07:00 RPR Titer Nonreactive (NONREACTIVE) 10/24/18 07:00 HIV 1&2 Antibody Screen Negative 10/24/18 07:00 HIV P24 Antigen Negative 10/24/18 07:00 Labs noted - Treatment Hospital Course: Detox Protocol Followed, Detoxed Safely, Responded well, Discharged Condition Good - Medication Discharge Medications: Ambulatory Orders Albuterol Sulfate Inhaler - [Ventolin HFA Inhaler -] 2 inh PO Q4H PRN 12/31/13 Gabapentin 300 mg PO TID 05/06/18 traZODone HCL [Trazodone HCl] 100 mg PO HS 05/06/18 Budesonide/Formeterol Fumarate [SYMBICORT 160/4.5mcg -] 1 inh PO BID 10/24/18 Montelukast Na [Singulair -] 10 mg PO HS 10/24/18 - Diagnosis (1) Alcohol dependence with uncomplicated withdrawal Current Visit: Yes Status: Acute (2) Opioid dependence with withdrawal Current Visit: Yes Status: Acute (3) Sedative, hypnotic or anxiolytic dependence with withdrawal, uncomplicated Current Visit: Yes Status: Acute (4) Asthma Current Visit: Yes Status: Chronic Qualifiers: Asthma severity: mild Asthma persistence: intermittent Asthma complication type: uncomplicated Qualified Code(s): J45.20 - Mild intermittent asthma, uncomplicated (5) Cocaine dependence with withdrawal Current Visit: Yes Status: Chronic (6) History of seizure Current Visit: Yes Status: Suspected (7) Hepatitis C Current Visit: No Status: Chronic Qualifiers: Viral hepatitis chronicity: chronic Hepatic coma status: without hepatic coma Qualified Code(s): B18.2 - Chronic viral hepatitis C - AMA Did Patient Leave Against Medical Advice: No (Pt requested early d/c)
[2018-10-26 15:07] VITALS: BP 145/87; PULSE 95; TEMP 96.8
[2018-10-27] MEDS ORDERED: METHADONE HCL 5 MG TABLET (FOR DETOX USE ONLY) PO ONE (06:00)
== END 2018-10-26 14:30 | disposition home or self-care (01) | DRG 773 ==
LOC: YASAS 12:18 → Y3N 16:55
PROVIDERS: ADMIT Surgery; ATTEND Surgery
PROC: HZ2ZZZZ Detoxification Services for Substance Abuse Treatment (ICD-10-PCS; principal; 2018-10-23)
DX: F11.23 Opioid dependence with withdrawal (principal); F10.230 Alcohol dependence with withdrawal, uncomplicated; F13.230 Sedative, hypnotic or anxiolytic dependence with withdrawal, uncomplicated; F14.23 Cocaine dependence with withdrawal; J45.21 Mild intermittent asthma with (acute) exacerbation; B18.2 Chronic viral hepatitis C; R94.5 Abnormal results of liver function studies; R74.0 Nonspecific elevation of levels of transaminase and lactic acid dehydrogenase [LDH]; R63.4 Abnormal weight loss; L03.114 Cellulitis of left upper limb; L03.113 Cellulitis of right upper limb; G47.00 Insomnia, unspecified; Z86.69 Personal history of other diseases of the nervous system and sense organs; Z88.0 Allergy status to penicillin; Z59.0 Homelessness
CPT/HCPCS: 36415; 80053; 85027; 86593; 87389; 93005; 93010; 94640

== ENCOUNTER 2018-12-20 08:41 | Inpatient (IN) | payer OTHER ==
[2018-12-20 09:44] VITALS: BMI 22.8
--- NOTE | 2018-12-20 11:11 | HP ---
COWS - Scale Resting Pulse: 0= ND 80 or Below Sweatin= Chills/Flushing Restless Observation: 0= Sits Still Pupil Size: 0= Normal to Room Light Bone or Joint Aches: 4=Acute Joint/Muscle Pain Runny Nose/ Eye Tearin= Runny Nose/Eyes GI Upset > 30mins: 2= Nausea/Diarrhea Tremor Observation: 0= None Yawning Observation: 1= 1-2x During Session Anxiety or Irritability: 2=Irritable/Anxious Goose Flesh Skin: 0=Smooth Skin COWS Score: 12 CIWA Score Nausea/Vomitin-Mild Nausea/No Vomiting Muscle Tremors: None Anxiety: 4-Mod. Anxious/Guarded Agitation: 0-Normal Activity Paroxysmal Sweats: 1-Minimal Palms Moist Orientation: 0-Oriented Tacttile Disturbances: 2-Mild Itch/Numbness/Burn Auditory Disturbances: 0-None Visual Disturbances: 2-Mild Sensitivity Headache: 3-Moderate CIWA-Ar Total Score: 13 - Admission Criteria OASAS Guidelines: Admission for Medically Managed Detox: Requires at least one of the followin. CIWA greater than 12 2. Seizures within the past 24 hours 3. Delirium tremens within the past 24 hours 4. Hallucinations within the past 24 hours 5. Acute intervention needed for co occurring medical disorder 6. Acute intervention needed for co occurring psychiatric disorder 7. Severe withdrawal that cannot be handled at a lower level of care (continued vomiting, continued diarrhea, abnormal vital signs) requiring intravenous medication and/or fluids 8. Admission ROS [facility] Allergies/Adverse Reactions: Allergies Allergy/AdvReac Type Severity Reaction Status Date / Time Penicillins Allergy Severe Hives Verified 12/20/18 09:36 tomato Allergy Intermediate Itching Verified 12/20/18 09:36 tomato suce Allergy Intermediate Itching Uncoded 12/20/18 09:36 History of Present Illness: This report was requested by: Jailyn Kay | Reference #: [id number] Others' Prescriptions Patient Name: Bong Moody Date: 1985 Address: [address] [place] [address] Sex: Male Rx Written Rx Dispensed Drug Quantity Days Supply Prescriber Name 02/11/2018 02/11/2018 chlordiazepoxide 25 mg capsule 11 5 Myla Mullen pt here requesting detox from heroin and alcohol use , reports heroin 7-8 bags/day "depending on the money " IVDU in kennedi UE , first age of use 23 , latest use this morning around 3 am , current symptoms as above . OD x 14 , most recently 3 days ago , Narcan by emt , taken to [facility] d/ c same day , relapse after d/c. etoh use : 3 pints vodka /day since 10 years ago ,sober 3 weeks while working , latest use yesterday , current symptoms as above ,reports tremors if not drinking , + blackouts, had w/d seizure in the past , reports that he starts drinking in the mornings . cocaine : " not that much " , reports weekly use IVDU . fentanyl - denies bzo - reports was given meds while in hospital , no d/c paperwork available methadone : 40 mg illicit use 2 days ago , cannabis - denies tobacco - denies . pmhx :asthma pshx : denies psych : denies Exam Limitations: Clinical Condition - Ebola screening Have you traveled outside of the country in the last 21 days: No Have you had contact with anyone from an Ebola affected area: No Do you have a fever: No Patient History - Patient Medical History Hx Anemia: No Hx Asthma: Yes (Uses MDI PRN.) Hx Chronic Obstructive Pulmonary Disease (COPD): No Hx Cancer: No Hx Cardiac Disorders: No Hx Congestive Heart Failure: No Hx Hypertension: No Hx Hypercholesterolemia: No Hx Pacemaker: No HX Cerebrovascular Accident: No Hx Seizures: Yes (Due to ETOH/Drug Withdrawal, has taken Gabapentin in past to prevent.) Hx Dementia: No Hx Diabetes: No Hx Gastrointestinal Disorders: No Hx Liver Disease: No Hx Genitourinary Disorders: No Hx Sexually Transmitted Disorders: No Hx Renal Disease (ESRD): No Hx Thyroid Disease: No Hx Human Immunodeficiency Virus (HIV): No (12/19: Negative) Hx Hepatitis C: No (Denies.) Hx Depression: No Hx Suicide Attempt: No (PATIENT DENIES CURRENT SI / HI.) Hx Bipolar Disorder: No Hx Schizophrenia: No - Patient Surgical History Past Surgical History: No Hx Neurologic Surgery: No Hx Cataract Extraction: No Hx Cardiac Surgery: No Hx Lung Surgery: No Hx Breast Surgery: No Hx Breast Biopsy: No Hx Abdominal Surgery: No Hx Appendectomy: No Hx Cholecystectomy: No Hx Genitourinary Surgery: No Hx Section: No Hx Orthopedic Surgery: No Other Surgical History: DENIES. Anesthesia Reaction: No - PPD History Date: 03/22/18 Results: 0 mm - Smoking Cessation Smoking history: Never smoked Have you smoked in the past 12 months: No Aproximately how many cigarettes per day: 0 Cigars Per Day: 0 Hx Chewing Tobacco Use: No Initiated information on smoking cessation: No - Substance & Tx. History Hx Alcohol Use: Yes Hx Substance Use: Yes Substance Use Type: Alcohol, Cocaine, Heroin - Substances abused Heroin Substance route: Injection Frequency: Daily Amount used: 8-10 Age of first use: 18 Date of last use: 12/19/18 Cocaine Substance route: Injection Frequency: Daily Amount used: $50 Age of first use: 18 Date of last use: 10/21/18 Alprazolam (Xanax) Substance route: Oral Frequency: 3-6 times per week Amount used: 2-3 PILLS Age of first use: 26 Date of last use: 10/19/18 Benzodiazepine (Klonopin) Substance route: Oral Frequency: 1-2 times per week Amount used: 10 PILLS WHEN USED Age of first use: 22 Date of last use: 10/21/18 Alcohol Substance route: Oral Frequency: Daily Amount used: 2-3 PINTS VODKA Age of first use: 21 Date of last use: 12/19/18 Family Disease History - Family Disease History Family Disease History: Diabetes: Father (ETOH DEPENDENT), CA: Grandparent, Respiratory: Brother (ASTHMA; (OD)), Other: Father, Brother Other Family History: 2 children ages 16 & 12 unknown health does not keep in touch Admission Physical Exam S - Vital Signs Vital Signs: Vital Signs - 24 hr 12/20/18 09:35 Temperature 97.4 F L Pulse Rate 61 Respiratory 18 Rate Blood Pressure 155/76 - Physical General Appearance: Yes: Mild Distress, Intoxicated, Anxious, Other (drowsy , falls asleep) HEENTM: Yes: Hearing grossly Normal, Normocephalic, Normal Voice, Other (poor dentition , many missing teeth) Respiratory: Yes: Chest Non-Tender, No Respiratory Distress, No Accessory Muscle Use, Wheezing Neck: Yes: No masses,lesions,Nodules, Trachea in good position Cardiology: Yes: Regular Rhythm, Regular Rate, S1, S2, Other (QTc 469 on 10/23/18 ) Abdominal: Yes: Normal Bowel Sounds, Non Tender, Soft Back: Yes: Normal Inspection Musculoskeletal: Yes: full range of Motion Extremities: Yes: Normal Inspection, Normal Range of Motion, Non-Tender Neurological: Yes: Alert, Motor Strength 5/5, Depressed Affect Integumentary: Yes: Warm, Track Shelley (kennedi UE antecubital raised, indurated , no edema / no erythema kennedi LE multiple excoriations on dorsum of right foot, medial left foot and right mediolateral knee x 2 from excoriations after use of heroin .) - Diagnostic (1) Alcohol dependence with uncomplicated withdrawal Current Visit: Yes Status: Chronic (2) Cocaine dependence Current Visit: Yes Status: Chronic Qualifiers: Substance use status: uncomplicated Qualified Code(s): F14.20 - Cocaine dependence, uncomplicated (3) Opioid dependence with withdrawal Current Visit: Yes Status: Chronic Cleared for Admission [facility] - Detox or Rehab [facility] Level of Care: Medically Supervised Detox Regimen/Protocol: Methadone/Librium Breathalyzer - Breathalyzer Breathalyzer: 0 Vital Signs - Vital Signs Vital signs refused: No Urine Drug Screen - Test Device Lot number: [id number] Expiration date: 10/02/11 - Control Is test valid?: Yes - Results Drug screen NEGATIVE: No Urine drug screen results: [place]-Cocaine, FEN-Fentanyl, MOP-Opiates, MTD-Methadone , BZO-Benzodiazepines Inpatient Rehab Admission - Rehab Decision to Admit Inpatient rehab admission?: No
[2018-12-20] MEDS ORDERED: MELATONIN 5 MG TABLETS PO PRN (12:26)
[2018-12-20] MEDS ORDERED: MAG HYDROX/AL HYDROX/SIMETH 30 ML UNIT-DOSE CUP PO PRN (12:26)
[2018-12-20] MEDS ORDERED: MENTHOL/PHENOL 1 EACH UD MM PRN (12:26)
[2018-12-20] MEDS ORDERED: BISMUTH SUBSALICYLATE 262 MG/15 ML BTL PO PRN (12:26)
[2018-12-20] MEDS ORDERED: MAGNESIUM HYDROX 2400MG/30ML ORAL SUSPENSION 30 ML CUP PO PRN (12:26)
[2018-12-20] MEDS ORDERED: ACETAMINOPHEN 325 MG TABLET (FP) PO PRN ×2 (12:26)
[2018-12-20] MEDS ORDERED: hydrOXYzine HCL 25 MG TABLET (FP) PO PRN (12:26)
[2018-12-20] MEDS ORDERED: IBUPROFEN 400 MG TABLET (FP) PO PRN (12:26)
[2018-12-20] MEDS ORDERED: MAGNESIUM CITRATE 300 ML BOTTLE PO PRN (12:26)
[2018-12-20] MEDS ORDERED: chlordiazePOXIDE HCL 10 MG CAPSULE PO PRN (12:29)
[2018-12-20] MEDS ORDERED: chlordiazePOXIDE HCL 25 MG CAPSULE PO SCH (13:00)
[2018-12-20] MEDS ORDERED: METHADONE HCL 10 MG TABLET (FOR DETOX USE ONLY) PO ONE (13:05)
--- NOTE | 2018-12-20 13:30 | PN ---
[facility] Progress Note (SOAP) Subjective: I'M having asthma Objective: 12/20/18 13:26 Vital Signs Temperature 97.4 F L 12/20/18 09:35 Pulse Rate 61 12/20/18 09:35 Respiratory Rate 18 12/20/18 09:35 Blood Pressure 155/76 12/20/18 09:35 O2 Sat by Pulse Oximetry (%) respiratory rate 20./m lungs - wheezes kennedi throughout lung nelson Assessment: 12/20/18 13:28 acute exacerbation of b.asthma pt was recently on steriods while in hospital signed out AMA will restart prednisone 40mg /d Plan: prednisone 40mg /d duoneb q4h prn.
[2018-12-20] MEDS ORDERED: diazePAM 5 MG TABLET PO PRN (13:36)
[2018-12-20] MEDS ORDERED: predniSONE 20 MG TABLET (UD) PO ONE (13:50)
[2018-12-20] MEDS: ALBUTEROL SO4 2.5/IPRATROPIUM 0.5 INH SOL 3 ML VIAL.NEB. NEB PRN (14:00)
[2018-12-20] MEDS: diazePAM 5 MG TABLET PO SCH ×2 (14:13→22:43)
[2018-12-20] MEDS ORDERED: THIAMINE HCL 100 MG TABLET (FP) PO SCH (22:00)
[2018-12-20] MEDS ORDERED: BACITRACIN/POLYMYXIN B SULFATE 15 GM TUBE TP SCH (22:00)
[2018-12-20] MEDS ORDERED: MONTELUKAST NA 10 MG TABLET PO SCH (22:00)
[2018-12-21] MEDS: ALBUTEROL SO4 2.5/IPRATROPIUM 0.5 INH SOL 3 ML VIAL.NEB. NEB PRN ×2 (01:31→09:52)
[2018-12-21] MEDS: diazePAM 5 MG TABLET PO SCH (06:28)
[2018-12-21 09:20] VITALS: BP 131/90; PULSE 67; TEMP 98
[2018-12-21] MEDS ORDERED: METHADONE HCL 5 MG TABLET (FOR DETOX USE ONLY) PO ONE (10:00)
[2018-12-21] MEDS ORDERED: predniSONE 20 MG TABLET (UD) PO SCH (10:00)
[2018-12-21] MEDS ORDERED: PRENATAL VITAMINS W/ FOLIC ACID TABLET (FP) PO SCH (10:00)
[2018-12-21] MEDS ORDERED: ALBUTEROL SO4 8 GM HFA INHALER IH ONE (10:08)
[2018-12-21 10:38] LABS: ALBUMIN 3.1 g/dl (3.4-5.0); BILIRUBIN,TOTAL 0.6 mg/dL (0.2-1); BLOOD UREA NITROGEN 11.5 mg/dL (7-18); CALCIUM 8.2 mg/dL (8.5-10.1); CREATININE 0.6 mg/dL (0.55-1.3); POTASSIUM 3.9 mmol/L (3.5-5.1); TOT PROT 6.4 g/dl (6.4-8.2)
[2018-12-21 10:43] LABS: HEMATOCRIT 38.1 % (35.4-49); HEMOGLOBIN 12.5 GM/dL (11.7-16.9); MCH 27.6 pg (25.7-33.7); MCHC 32.7 g/dl (32.0-35.9); MEAN CELL VOLUME 84.3 fl (80-96); MEAN PLT VOLUME 8.7 fl (7.5-11.1); PLATELET COUNT 256 K/MM3 (134-434); RBC 4.52 M/mm3 (4.00-5.60); RDW 13.8 % (11.9-15.9); WHITE BLOOD COUNT 8.3 K/mm3 (4.0-10.0)
--- NOTE | 2018-12-21 19:01 | PN ---
[facility] CIWA - CIWA Score Nausea/Vomitin-No Nausea/No Vomiting Muscle Tremors: 2 Anxiety: 4-Mod. Anxious/Guarded Agitation: 3 Paroxysmal Sweats: 3 Orientation: 0-Oriented Tacttile Disturbances: 1-Very Mild Itch/Numbness Auditory Disturbances: 0-None Visual Disturbances: 2-Mild Sensitivity Headache: 0-None Present CIWA-Ar Total Score: 15 [facility] COWS - Scale Resting Pulse: 0= ID 80 or Below Sweatin= Chills/Flushing Restless Observation: 1= Difficult to Sit Still Pupil Size: 0= Normal to Room Light Bone or Joint Aches: 2= Severe Diffuse Aches Runny Nose/ Eye Tearin= Nasal Congestion GI Upset > 30mins: 0= None Tremor Observation of Outstretched Hands: 2= Slight Tremor Visible Yawning Observation: 1= 1-2x During Session Anxiety or Irritability: 2=Irritable/Anxious Goose Flesh Skin: 3=Piloerection COWS Score: 13 BHS Progress Note (SOAP) Subjective: Anxious, Restless, Tremors, Body Aches. Objective: PATIENT A & O X 3, OBSERVED AMBULATING ON UNIT WITH ASSISTANCE OF A CANE. IN NO ACUTE DISTRESS. 12/21/18 19:00 Vital Signs Temperature 98.0 F 12/21/18 09:19 Pulse Rate 67 12/21/18 09:19 Respiratory Rate 20 12/21/18 09:19 Blood Pressure 131/90 12/21/18 09:19 O2 Sat by Pulse Oximetry (%) 100 12/20/18 14:30 Laboratory Tests 12/21/18 12/21/18 12/21/18 08:00 08:00 08:00 WBC 8.3 RBC 4.52 Hgb 12.5 Hct 38.1 MCV 84.3 MCH 27.6 MCHC 32.7 RDW 13.8 Plt Count 256 MPV 8.7 D Sodium 141 Potassium 3.9 Chloride 107 Carbon Dioxide 29 Anion Gap 5 L BUN 11.5 Creatinine 0.6 Est GFR (CKD-EPI)AfAm 152.04 Est GFR (CKD-EPI)NonAf 131.18 Random Glucose 76 Calcium 8.2 L Total Bilirubin 0.6 AST 25 ALT 43 Alkaline Phosphatase 84 Total Protein 6.4 Albumin 3.1 L RPR Titer Nonreactive LABS NOTED. Assessment: 12/21/18 19:00 WITHDRAWAL SYMPTOMS. Plan: CONTINUE DETOX.
--- NOTE | 2018-12-21 19:06 | DS ---
[facility] Detox Discharge Summary Admission Date: 12/20/18 Discharge Date: 12/21/18 - History Present History: Alcohol Dependence, Cocaine Dependence, Opioid Dependence Additional Comments: DESPITE EFFORTS BY SWITCHBOARD INSPECTOR AND BY NURSING STAFF TO ADDRESS PATIENT'S MEDICAL NEEDS / CONCERNS, PATIENT DOES NOT WISH TO REMAIN TO COMPLETE DETOX REGIMEN. RISKS OF LEAVING DETOX UNIT AGAINST MEDICAL ADVICE AND PRIOR TO COMPLETION OF DETOX REGIMEN EXPLAINED TO PATIENT. PATIENT ADVISED TO GO IMMEDIATELY TO NEAREST ER SHOULD ANY INTOLERABLE WITHDRAWAL / DETOX SYMPTOMS DEVELOP AT ANY TIME. PATIENT HAD BEEN STARTED ON PREDNISONE FOR ASTHMA EXACERBATION YESTERDAY. PREDNISONE TAPER SENT TO [facility] ([place], [place], PATIENT REPORTS THAT HE IS RESTRICTED TO FILL MEDICATION PRESCRIPTIONS AT THIS PHARMACY ONLY). PATIENT ADVISED TO RETAIL PRODUCT ADVISOR PREDNISONE AND COMPLETE FULL COURSE OF MEDICATION. PATIENT VERBALIZED UNDERSTANDING OF ALL INFORMATION / RECOMMENDATIONS PRESENTED TO HIM PRIOR TO DEPARTURE FROM DETOX UNIT. PATIENT LEFT DETOX UNIT IN STABLE MEDICAL CONDITION. Pertinent Past History: Asthma, History Of Seizures (Due to Withdrawal). - Physical Exam Results Vital Signs: Vital Signs Temperature 98.0 F 12/21/18 09:19 Pulse Rate 67 12/21/18 09:19 Respiratory Rate 20 12/21/18 09:19 Blood Pressure 131/90 12/21/18 09:19 O2 Sat by Pulse Oximetry (%) 100 12/20/18 14:30 Pertinent Admission Physical Exam Findings: WITHDRAWAL SYMPTOMS. Laboratory Tests 12/21/18 12/21/18 12/21/18 08:00 08:00 08:00 WBC 8.3 RBC 4.52 Hgb 12.5 Hct 38.1 MCV 84.3 MCH 27.6 MCHC 32.7 RDW 13.8 Plt Count 256 MPV 8.7 D Sodium 141 Potassium 3.9 Chloride 107 Carbon Dioxide 29 Anion Gap 5 L BUN 11.5 Creatinine 0.6 Est GFR (CKD-EPI)AfAm 152.04 Est GFR (CKD-EPI)NonAf 131.18 Random Glucose 76 Calcium 8.2 L Total Bilirubin 0.6 AST 25 ALT 43 Alkaline Phosphatase 84 Total Protein 6.4 Albumin 3.1 L RPR Titer Nonreactive LABS NOTED. - Medication Discharge Medications: Ambulatory Orders traZODone HCL [Trazodone HCl] 100 mg PO HS 05/06/18 Montelukast Na [Singulair -] 10 mg PO HS 10/24/18 Prednisone 10 mg PO ASDIR 3 Days #6 tablet 12/21/18 - Diagnosis (1) Alcohol dependence with uncomplicated withdrawal Status: Acute (2) Opioid dependence with withdrawal Status: Acute (3) Cocaine dependence Status: Chronic Qualifiers: Substance use status: uncomplicated Qualified Code(s): F14.20 - Cocaine dependence, uncomplicated - AMA Did Patient Leave Against Medical Advice: Yes (PATIENT DID NOT WISH TO REMAIN TO COMPLETE DETOX REGIMEN.)
[2018-12-22] MEDS ORDERED: chlordiazePOXIDE 5 MG CAPSULE PO SCH (05:00)
[2018-12-22] MEDS ORDERED: diazePAM 5 MG TABLET PO SCH (06:00)
[2018-12-22] MEDS ORDERED: METHADONE HCL 10 MG TABLET (FOR DETOX USE ONLY) PO ONE (10:00)
[2018-12-23] MEDS ORDERED: chlordiazePOXIDE HCL 10 MG CAPSULE PO PRN
[2018-12-23] MEDS ORDERED: chlordiazePOXIDE HCL 10 MG CAPSULE PO SCH (05:00)
[2018-12-23] MEDS ORDERED: diazePAM 5 MG TABLET PO ONE (06:00)
[2018-12-23] MEDS ORDERED: METHADONE HCL 5 MG TABLET (FOR DETOX USE ONLY) PO ONE (06:00)
[2018-12-24] MEDS ORDERED: chlordiazePOXIDE HCL 10 MG CAPSULE PO ONE (05:00)
== END 2018-12-21 10:09 | disposition left against medical advice (07) | DRG 770 ==
LOC: YASAS 08:41 → Y3N 12:37
PROVIDERS: ADMIT Surgery; ATTEND Surgery
PROC: HZ2ZZZZ Detoxification Services for Substance Abuse Treatment (ICD-10-PCS; principal; 2018-12-20)
DX: F11.23 Opioid dependence with withdrawal (principal); F10.230 Alcohol dependence with withdrawal, uncomplicated; F10.220 Alcohol dependence with intoxication, uncomplicated; F14.20 Cocaine dependence, uncomplicated; J45.901 Unspecified asthma with (acute) exacerbation; Z86.69 Personal history of other diseases of the nervous system and sense organs; Z88.0 Allergy status to penicillin; Z59.0 Homelessness
CPT/HCPCS: 36415; 80053; 85027; 86593; 94640

== ENCOUNTER 2019-03-04 16:00 | Inpatient (IN) | payer OTHER ==
[2019-03-04 19:41] VITALS: BMI 23.3
--- NOTE | 2019-03-04 22:04 | HP ---
COWS - Scale Resting Pulse: 0= [place] 80 or Below Sweatin=Flushed/Facial Moisture Restless Observation: 0= Sits Still Pupil Size: 2= Moderately Dilated (Pupils = 5 mm) Bone or Joint Aches: 1= Mild Discomfort Runny Nose/ Eye Tearin= Nasal Congestion GI Upset > 30mins: 2= Nausea/Diarrhea Tremor Observation: 2= Slight Tremor Visible Yawning Observation: 1= 1-2x During Session Anxiety or Irritability: 1=Feels Anxious/Irritable Goose Flesh Skin: 0=Smooth Skin COWS Score: 12 CIWA Score Nausea/Vomitin-No Nausea/No Vomiting Muscle Tremors: 3 Anxiety: 3 Agitation: 1-Slight > Activity Paroxysmal Sweats: 3 (Increased facial moisture) Orientation: 0-Oriented Tacttile Disturbances: 0-None Auditory Disturbances: 0-None Visual Disturbances: 0-None Headache: 2-Mild CIWA-Ar Total Score: 12 - Admission Criteria OASAS Guidelines: Admission for Medically Managed Detox: Requires at least one of the followin. CIWA greater than 12 2. Seizures within the past 24 hours 3. Delirium tremens within the past 24 hours 4. Hallucinations within the past 24 hours 5. Acute intervention needed for co occurring medical disorder 6. Acute intervention needed for co occurring psychiatric disorder 7. Severe withdrawal that cannot be handled at a lower level of care (continued vomiting, continued diarrhea, abnormal vital signs) requiring intravenous medication and/or fluids 8. Patient presents the following: CIWA greater than 12 Admission Criteria Met: Admission criteria met Admitting History and Physical - Smoking History Smoking history: Never smoked Have you smoked in the past 12 months: No Aproximately how many cigarettes per day: 0 - Alcohol/Substance Use Hx Alcohol Use: Yes Admission ROS S - HPI Chief Complaint: I'm having withdrawals. Allergies/Adverse Reactions: Allergies Allergy/AdvReac Type Severity Reaction Status Date / Time Penicillins Allergy Severe Hives Verified 03/04/19 19:28 tomato Allergy Intermediate Itching Verified 03/04/19 19:28 tomato suce Allergy Intermediate Itching Uncoded 03/04/19 19:28 History of Present Illness: 33 yo presents w/ alcohl and heroin withdrawal symptoms seeking detox. Patient discharged last on [facility] on 12/21/18. States relapsed after 3 days. Utox: + FEN/MOP/MTD/BAR VILMA: 0.0 Has had 15 overdoses. States last overdosed yesterday and was treated [facility] and was held overnight and discharged this am and relapsed. Heroin use began at age 23. Currently using 12 bags/day IV. Was on START program. States left [facility] 2 months ago. Has been using others used needles recently. Is aware of health risks. Fentanyl - denies known use. Methadone illicit use x 2 years. "2 caps" 1-2 x/week. Last use 2 days ago , Alcohol use began at age 18. Current use = 1.5 pints vodka day Nicotine use since age 12. Current use 2 cig/day. Denies barbiturate use - may have been given while in ED. Cocaine: " not that much " , reports weekly use IV. (UTox: neg) Xanax & Clonazepam: States takes 2-3x/wk: (UTox: neg) PMHx:Asthma, Hep C, Seizures r/t alcohol withdrawal; MHHx: Depression. Denies thoughts of harming self or others. SHx: Undomiciled. Unemployed. Denies current legal problems. Search Terms: Jeremy Zuñigaenez, 1985 Search Date: 03/04/2019 10:01:11 PM The Drug Utilization Report below displays all of the controlled substance prescriptions, if any, that your patient has filled in the last twelve months. The information displayed on this report is compiled from pharmacy submissions to the Department, and accurately reflects the information as submitted by the pharmacies. This report was requested by: Corie Leon | Reference #: [id number] There are no results for the search terms that you entered. Search Terms: Jeremy Moody, 1985 Search Date: 03/04/2019 10:03:38 PM States Searched: [place], [place], [place], [place], [place], [place], [place] The Drug Utilization Report below displays the controlled substance prescriptions, if any, that were dispensed in the indicated state(s). The information displayed on this report is compiled from requests submitted to other states' PMPs, and accurately reflects the information as returned by them. Blank nelson indicate data not provided by other state. This report was requested by: Corie Leon | Reference #: [id number] There are no results for the search terms that you entered. Exam Limitations: No Limitations - Ebola screening Have you traveled outside of the country in the last 21 days: No (N) Have you had contact with anyone from an Ebola affected area: No Have you been sick,other than usual withdrawal symptoms: No Do you have a fever: No - Review of Systems Constitutional: Diaphoresis, Changes in sleep (Difficulty staying asleep - takes trazodone) EENT: reports: Nose Congestion, Dental Problems (Missing teeth. Cheews and swallows o.) Respiratory: reports: Cough (Cough x weeks r/t asthm a) Cardiac: reports: No Symptoms Reported GI: reports: Diarrhea (watery, brown x 4 today) : reports: No Symptoms Reported Musculoskeletal: reports: Back Pain (r/t withdrawal), Muscle Pain (aches r/t withdrawal) Integumentary: reports: Other (Track shelley) Neuro: reports: Headache (Mild frontal dull headache) Endocrine: reports: Increased Thirst Hematology: reports: No Symptoms Reported Psychiatric: reports: Orientated x3, Agitated, Anxious, Depressed (Denies thoughts of harming self or others) Patient History - Patient Medical History Hx Anemia: No Hx Asthma: Yes (Uses MDI PRN.) Hx Chronic Obstructive Pulmonary Disease (COPD): No Hx Cancer: No Hx Cardiac Disorders: No Hx Congestive Heart Failure: No Hx Hypertension: No Hx Hypercholesterolemia: No Hx Pacemaker: No HX Cerebrovascular Accident: No Hx Seizures: Yes (Due to ETOH/Drug Withdrawal, has taken Gabapentin in past to prevent.) Hx Dementia: No Hx Diabetes: No Hx Gastrointestinal Disorders: No Hx Liver Disease: No Hx Genitourinary Disorders: No Hx Sexually Transmitted Disorders: No Hx Renal Disease (ESRD): No Hx Thyroid Disease: No Hx Human Immunodeficiency Virus (HIV): No (12/19: Negative) Hx Hepatitis C: No (Denies.) Hx Depression: No Hx Suicide Attempt: No (PATIENT DENIES CURRENT SI / HI.) Hx Bipolar Disorder: No Hx Schizophrenia: No - Patient Surgical History Past Surgical History: No Hx Neurologic Surgery: No Hx Cataract Extraction: No Hx Cardiac Surgery: No Hx Lung Surgery: No Hx Breast Surgery: No Hx Breast Biopsy: No Hx Abdominal Surgery: No Hx Appendectomy: No Hx Cholecystectomy: No Hx Genitourinary Surgery: No Hx Section: No Hx Orthopedic Surgery: No Other Surgical History: DENIES. Anesthesia Reaction: No - PPD History Previous Implant?: Yes Documented Results: Negative w/proof Implanted On Prior [facility] Admission?: Yes Date: 03/22/18 Results: 0 mm PPD to be Administered?: No - Smoking Cessation Smoking history: Current some day smoker Have you smoked in the past 12 months: No Aproximately how many cigarettes per day: 2 Cigars Per Day: 0 Hx Chewing Tobacco Use: No Initiated information on smoking cessation: Yes 'Breaking Loose' booklet given: 03/04/19 - Substance & Tx. History Hx Alcohol Use: Yes Hx Substance Use: Yes Substance Use Type: Alcohol, Cocaine, Heroin, Opiates Hx Substance Use Treatment: Yes (DETOX, REHABS, PAST [facility]) - Substances abused Heroin Substance route: Injection Frequency: Daily Amount used: 10 to 12 bags Age of first use: 18 Date of last use: 03/04/19 Cocaine Substance route: Injection Frequency: Daily Amount used: $50 Age of first use: 18 Date of last use: 10/21/18 Alprazolam (Xanax) Substance route: Oral Frequency: 3-6 times per week Amount used: 2-3 PILLS Age of first use: 26 Date of last use: 10/19/18 Benzodiazepine (Klonopin) Substance route: Oral Frequency: 1-2 times per week Amount used: 10 PILLS WHEN USED Age of first use: 22 Date of last use: 10/21/18 Alcohol Substance route: Oral Frequency: Daily Amount used: i liter of vodka Age of first use: 21 Date of last use: 03/04/19 Other Other (specify): Klonopin Substance route: Oral Frequency: Daily Amount used: 2 mg Age of first use: 33 Date of last use: 03/04/19 Admission Physical Exam [facility] - Vital Signs Vital Signs: Vital Signs - 24 hr 03/04/19 19:28 Temperature 97.7 F Pulse Rate 76 Respiratory 16 Rate Blood Pressure 118/69 - Physical General Appearance: Yes: Mild Distress, Tremorous, Sweating (Increased facial moisture), Anxious HEENTM: Yes: EOMI, Hearing grossly Normal, Normocephalic, Normal Voice, ANASTACIA ( Pupils = 5 mm), Pharynx Normal, Other (thickened saliva) Respiratory: Yes: No Accessory Muscle Use, Wheezing (Pulse Ox = 92 %), Other ( Pulse Ox = 92 %) Neck: Yes: No masses,lesions,Nodules, Supple Breast: Yes: Breast Exam Deferred Cardiology: Yes: Regular Rhythm, S1, S2 Abdominal: Yes: Non Tender, Flat, Soft, Increased Bowel Sounds Genitourinary: Yes: Within Normal Limits Back: Yes: Normal Inspection Musculoskeletal: Yes: full range of Motion, Gait Steady Extremities: Yes: Normal Capillary Refill, Tremors Neurological: Yes: lead portfolio manager II-XII NML intact, Fully Oriented, Alert, Motor Strength 5/5, Normal Response Integumentary: Yes: Normal Color, Warm, Track Shelley (Old and new track shelley both antecubital areas), Other (Decreased skin turgor) Lymphatic: Yes: Within Normal Limits - Diagnostic (1) Symptoms of dehydration Current Visit: Yes Status: Acute (2) History of hepatitis C Current Visit: Yes Status: Chronic (3) Alcohol dependence with uncomplicated withdrawal Current Visit: Yes Status: Acute (4) IVDU (intravenous drug user) Current Visit: Yes Status: Acute (5) Opioid dependence with withdrawal Current Visit: Yes Status: Acute (6) Asthma Current Visit: Yes Status: Acute Qualifiers: Asthma severity: mild Asthma persistence: intermittent Asthma complication type: with acute exacerbation Qualified Code(s): J45.21 - Mild intermittent asthma with (acute) exacerbation (7) Nicotine dependence Current Visit: Yes Status: Chronic Qualifiers: Nicotine product type: cigarettes Substance use status: uncomplicated Qualified Code(s): F17.210 - Nicotine dependence, cigarettes, uncomplicated (8) History of seizure Current Visit: Yes Status: Suspected (9) Tinea pedis Current Visit: Yes Status: Chronic Qualifiers: Laterality: bilateral Qualified Code(s): B35.3 - Tinea pedis (10) Insomnia Current Visit: Yes Status: Chronic Qualifiers: Insomnia type: unspecified Qualified Code(s): G47.00 - Insomnia, unspecified Cleared for Admission S - Detox or Rehab [facility] Level of Care: Medically Managed (Per patient's request) Detox Regimen/Protocol: Methadone/Valium Claeared for Rehab Admission: No Breathalyzer - Breathalyzer Breathalyzer: 0 Urine Drug Screen - Test Device Lot number: [id number] Expiration date: 11/01/20 - Control Is test valid?: Yes - Results Drug screen NEGATIVE: No Urine drug screen results: FEN-Fentanyl, MOP-Opiates, MTD-Methadone, BAR- Barbiturates Inpatient Rehab Admission - Rehab Decision to Admit Inpatient rehab admission?: No
[2019-03-04] MEDS ORDERED: ACETAMINOPHEN 325 MG TABLET (FP) PO PRN ×2 (22:46)
[2019-03-04] MEDS ORDERED: MAGNESIUM CITRATE 300 ML BOTTLE PO PRN (22:46)
[2019-03-04] MEDS ORDERED: diazePAM 5 MG TABLET PO PRN (22:46)
[2019-03-04] MEDS ORDERED: MENTHOL/PHENOL 1 EACH UD MM PRN (22:46)
[2019-03-04] MEDS ORDERED: MAG HYDROX/AL HYDROX/SIMETH 30 ML UNIT-DOSE CUP PO PRN (22:46)
[2019-03-04] MEDS ORDERED: MAGNESIUM HYDROX 2400MG/30ML ORAL SUSPENSION 30 ML CUP PO PRN (22:46)
[2019-03-04] MEDS ORDERED: BISMUTH SUBSALICYLATE 524 MG/30 ML UD PO PRN (22:46)
[2019-03-04] MEDS ORDERED: METHADONE HCL 10 MG TABLET (FOR DETOX USE ONLY) PO ONE (22:46)
[2019-03-04] MEDS ORDERED: cloNIDine HCL 0.1 MG TABLET PO PRN (22:46)
[2019-03-04] MEDS ORDERED: IBUPROFEN 400 MG TABLET (FP) PO PRN (22:46)
[2019-03-04] MEDS ORDERED: NICOTINE POLACRILEX 2 MG GUM BUC PRN (22:46)
[2019-03-04] MEDS ORDERED: ALBUTEROL SO4 0.083% IH SOL 2.5 MG/3 ML VIAL.NEB. NEB ONE (22:49)
[2019-03-04] MEDS ORDERED: predniSONE 20 MG TABLET (UD) PO ONE (22:52)
[2019-03-05] MEDS: MELATONIN 5 MG TABLETS PO PRN (00:05)
[2019-03-05] MEDS: diazePAM 5 MG TABLET PO SCH ×4 (00:06→22:00)
[2019-03-05] MEDS: traZODone HCL 100 MG TABLET (FP) PO SCH ×2 (00:07→21:59)
[2019-03-05] MEDS: guaiFENesin 200 MG/10 ML 10 ML UNIT-DOSE CUPS PO SCH ×5 (00:08→22:01)
[2019-03-05] MEDS ORDERED: ALBUTEROL SO4 2.5/IPRATROPIUM 0.5 INH SOL 3 ML VIAL.NEB. NEB SCH (08:00)
[2019-03-05] MEDS ORDERED: METHADONE HCL 5 MG TABLET (FOR DETOX USE ONLY) ONE (08:49)
[2019-03-05] MEDS ORDERED: METHADONE HCL 10 MG TABLET (FOR DETOX USE ONLY) ONE (08:49)
[2019-03-05] MEDS: PRENATAL VITAMINS W/ FOLIC ACID TABLET (FP) PO SCH (09:27)
[2019-03-05] MEDS: predniSONE 20 MG TABLET (UD) PO SCH (09:27)
[2019-03-05] MEDS: TOLNAFTATE 1% CREAM 15 GM TUBE TP SCH ×2 (09:27→22:00)
[2019-03-05] MEDS ORDERED: METHADONE (DETOX) 20 MG, METHADONE (DETOX) 5 MG PO ONE (10:00)
--- NOTE | 2019-03-05 10:45 | PN ---
[facility] CIWA - CIWA Score Nausea/Vomitin-No Nausea/No Vomiting Muscle Tremors: 3 Anxiety: 3 Agitation: 3 Paroxysmal Sweats: 2 Orientation: 0-Oriented Tacttile Disturbances: 0-None Auditory Disturbances: 0-None Visual Disturbances: 0-None Headache: 0-None Present CIWA-Ar Total Score: 11 S COWS - Scale Resting Pulse: 0= [place] 80 or Below Sweatin= Chills/Flushing Restless Observation: 1= Difficult to Sit Still Pupil Size: 0= Normal to Room Light Bone or Joint Aches: 2= Severe Diffuse Aches Runny Nose/ Eye Tearin= Nasal Congestion GI Upset > 30mins: 0= None Tremor Observation of Outstretched Hands: 1= Tremor [place], Not Seen Yawning Observation: 2= >3x During Session Anxiety or Irritability: 2=Irritable/Anxious Goose Flesh Skin: 0=Smooth Skin COWS Score: 10 [facility] Progress Note (SOAP) Subjective: body aches sweats shakes chills agitation interrupted sleep Objective: 03/05/19 10:45 Vital Signs Temperature 97.3 F L 03/05/19 09:21 Pulse Rate 70 03/05/19 09:21 Respiratory Rate 18 03/05/19 09:21 Blood Pressure 110/50 L 03/05/19 09:21 O2 Sat by Pulse Oximetry (%) labs pending aaox3 ambulating no acute distress Assessment: 03/05/19 10:45 withdrawals Plan: continue detox increase fluids pending labs
[2019-03-05] MEDS ORDERED: ALBUTEROL SO4 2.5/IPRATROPIUM 0.5 INH SOL 3 ML VIAL.NEB. NEB PRN (10:46)
[2019-03-05 10:56] LABS: HEMATOCRIT 42.3 % (35.4-49); HEMOGLOBIN 13.9 GM/dL (11.7-16.9); MCHC 32.9 g/dl (32.0-35.9); MEAN CELL VOLUME 81.9 fl (80-96); MEAN PLT VOLUME 8.4 fl (7.5-11.1); PLATELET COUNT 276 K/MM3 (134-434); RBC 5.17 M/mm3 (4.00-5.60); RDW 13.4 % (11.9-15.9); WHITE BLOOD COUNT 4.7 K/mm3 (4.0-10.0)
[2019-03-05 11:00] LABS: ALBUMIN 3.5 g/dl (3.4-5.0); BILIRUBIN,TOTAL 0.6 mg/dL (0.2-1); BLOOD UREA NITROGEN 13.8 mg/dL (7-18); CALCIUM 8.9 mg/dL (8.5-10.1); CREATININE 0.7 mg/dL (0.55-1.3); POTASSIUM 4.5 mmol/L (3.5-5.1); TOT PROT 7.1 g/dl (6.4-8.2)
[2019-03-05] MEDS: THIAMINE HCL 100 MG TABLET (FP) PO SCH (22:00)
[2019-03-05] MEDS: MONTELUKAST NA 10 MG TABLET PO SCH (22:00)
[2019-03-06] MEDS: diazePAM 5 MG TABLET PO SCH ×2 (06:09→17:25)
[2019-03-06] MEDS: guaiFENesin 200 MG/10 ML 10 ML UNIT-DOSE CUPS PO SCH ×4 (06:11→22:23)
[2019-03-06] MEDS: BUDESONIDE/FORMETEROL FUMARATE 80/4.5 mcg INHALER IH SCH ×2 (09:57→22:05)
[2019-03-06] MEDS: TOLNAFTATE 1% CREAM 15 GM TUBE TP SCH ×2 (09:58→22:05)
[2019-03-06] MEDS: PRENATAL VITAMINS W/ FOLIC ACID TABLET (FP) PO SCH (09:59)
[2019-03-06] MEDS: predniSONE 20 MG TABLET (UD) PO SCH (09:59)
[2019-03-06] MEDS ORDERED: METHADONE HCL 10 MG TABLET (FOR DETOX USE ONLY) PO ONE (10:00)
--- NOTE | 2019-03-06 11:37 | PN ---
[facility] CIWA - CIWA Score Nausea/Vomitin-No Nausea/No Vomiting Muscle Tremors: 2 Anxiety: 1-Mildly Anxious Agitation: 2 Paroxysmal Sweats: 1-Minimal Palms Moist Orientation: 0-Oriented Tacttile Disturbances: 0-None Auditory Disturbances: 0-None Visual Disturbances: 0-None Headache: 0-None Present CIWA-Ar Total Score: 6 S COWS - Scale Resting Pulse: 0= [place] 80 or Below Sweatin= Chills/Flushing Restless Observation: 1= Difficult to Sit Still Pupil Size: 0= Normal to Room Light Bone or Joint Aches: 2= Severe Diffuse Aches Runny Nose/ Eye Tearin= Runny Nose/Eyes GI Upset > 30mins: 1= Stomach Cramp Tremor Observation of Outstretched Hands: 1= Tremor [place], Not Seen Yawning Observation: 1= 1-2x During Session Anxiety or Irritability: 1=Feels Anxious/Irritable Goose Flesh Skin: 0=Smooth Skin COWS Score: 10 [facility] Progress Note (SOAP) Subjective: sweats mild shakes interrupted sleep body aches i usually take symbicort for my asthma Objective: 03/06/19 11:41 Vital Signs Temperature 97 F L 03/06/19 09:44 Pulse Rate 59 L 03/06/19 09:44 Respiratory Rate 18 03/06/19 09:44 Blood Pressure 137/87 03/06/19 09:44 O2 Sat by Pulse Oximetry (%) Laboratory Tests 03/05/19 03/05/19 08:00 08:00 WBC 4.7 RBC 5.17 Hgb 13.9 Hct 42.3 MCV 81.9 MCH 27.0 MCHC 32.9 RDW 13.4 Plt Count 276 MPV 8.4 Sodium 138 Potassium 4.5 Chloride 104 Carbon Dioxide 31 Anion Gap 4 L BUN 13.8 Creatinine 0.7 Est GFR (CKD-EPI)AfAm 142.70 Est GFR (CKD-EPI)NonAf 123.13 Random Glucose 126 H Calcium 8.9 Total Bilirubin 0.6 AST 25 ALT 35 Alkaline Phosphatase 86 Total Protein 7.1 Albumin 3.5 labs noted aaox3 ambulating no acute distress Assessment: 03/06/19 11:43 withdrawals sx Plan: continue detox increase fluids symbicort bid
[2019-03-06] MEDS: traZODone HCL 100 MG TABLET (FP) PO SCH (22:02)
[2019-03-06] MEDS: THIAMINE HCL 100 MG TABLET (FP) PO SCH (22:02)
[2019-03-06] MEDS: MONTELUKAST NA 10 MG TABLET PO SCH (22:03)
[2019-03-07] MEDS ORDERED: diazePAM 5 MG TABLET PO ONE (06:00)
[2019-03-07] MEDS: guaiFENesin 200 MG/10 ML 10 ML UNIT-DOSE CUPS PO SCH ×3 (06:39→22:04)
--- NOTE | 2019-03-07 08:31 | PN ---
[facility] CIWA - CIWA Score Nausea/Vomitin-No Nausea/No Vomiting Muscle Tremors: 2 Anxiety: 1-Mildly Anxious Agitation: 1-Slight > Activity Paroxysmal Sweats: No Perspiration Orientation: 0-Oriented Tacttile Disturbances: 0-None Auditory Disturbances: 0-None Visual Disturbances: 0-None Headache: 0-None Present CIWA-Ar Total Score: 4 [facility] COWS - Scale Resting Pulse: 0= [place] 80 or Below Sweatin= Chills/Flushing Restless Observation: 1= Difficult to Sit Still Pupil Size: 0= Normal to Room Light Bone or Joint Aches: 1= Mild Discomfort Runny Nose/ Eye Tearin= None GI Upset > 30mins: 0= None Tremor Observation of Outstretched Hands: 1= Tremor [place], Not Seen Yawning Observation: 1= 1-2x During Session Anxiety or Irritability: 1=Feels Anxious/Irritable Goose Flesh Skin: 0=Smooth Skin COWS Score: 6 S Progress Note (SOAP) Subjective: feeling better sweats shakes interrupted sleep Objective: 03/07/19 08:30 Laboratory Tests 03/05/19 03/05/19 08:00 08:00 WBC 4.7 RBC 5.17 Hgb 13.9 Hct 42.3 MCV 81.9 MCH 27.0 MCHC 32.9 RDW 13.4 Plt Count 276 MPV 8.4 Sodium 138 Potassium 4.5 Chloride 104 Carbon Dioxide 31 Anion Gap 4 L BUN 13.8 Creatinine 0.7 Est GFR (CKD-EPI)AfAm 142.70 Est GFR (CKD-EPI)NonAf 123.13 Random Glucose 126 H Calcium 8.9 Total Bilirubin 0.6 AST 25 ALT 35 Alkaline Phosphatase 86 Total Protein 7.1 Albumin 3.5 aaox3 ambulating no acute distress Assessment: 03/07/19 08:31 withdrawals sx Plan: continue detox increase fluids
[2019-03-07] MEDS ORDERED: METHADONE HCL 10 MG TABLET (FOR DETOX USE ONLY) ONE (09:02)
[2019-03-07] MEDS ORDERED: METHADONE HCL 5 MG TABLET (FOR DETOX USE ONLY) ONE (09:02)
[2019-03-07] MEDS: predniSONE 20 MG TABLET (UD) PO SCH (09:44)
[2019-03-07] MEDS: BUDESONIDE/FORMETEROL FUMARATE 80/4.5 mcg INHALER IH SCH ×2 (09:44→22:04)
[2019-03-07] MEDS: PRENATAL VITAMINS W/ FOLIC ACID TABLET (FP) PO SCH (09:44)
[2019-03-07] MEDS: TOLNAFTATE 1% CREAM 15 GM TUBE TP SCH ×2 (09:45→22:04)
[2019-03-07] MEDS ORDERED: METHADONE (DETOX) 10 MG, METHADONE (DETOX) 5 MG PO ONE (10:00)
[2019-03-07 10:33] LABS: PH,URINE 6.5 (5.0-8.0); URINE APPEARANCE CLEAR; URINE BILIRUBIN NEGATIVE (NEGATIVE); URINE COLOR YELLOW; URINE GLUCOSE (UA) NEGATIVE (NEGATIVE); URINE KETONE NEGATIVE (NEGATIVE); URINE LEUK ESTERASE NEGATIVE (NEGATIVE); URINE NITRITE NEGATIVE (NEGATIVE); URINE PROTEIN NEGATIVE (NEGATIVE); URINE UROBILINOGEN 0.2 mg/dL (0.2-1.0)
[2019-03-07] MEDS: traZODone HCL 100 MG TABLET (FP) PO SCH (22:03)
[2019-03-07] MEDS: THIAMINE HCL 100 MG TABLET (FP) PO SCH (22:03)
[2019-03-07] MEDS: MONTELUKAST NA 10 MG TABLET PO SCH (22:03)
[2019-03-07] MEDS: MELATONIN 5 MG TABLETS PO PRN (22:03)
[2019-03-08] MEDS ORDERED: METHADONE HCL 10 MG TABLET (FOR DETOX USE ONLY) PO ONE (10:00)
[2019-03-08] MEDS: predniSONE 20 MG TABLET (UD) PO SCH (10:19)
[2019-03-08] MEDS: PRENATAL VITAMINS W/ FOLIC ACID TABLET (FP) PO SCH (10:19)
[2019-03-08] MEDS: BUDESONIDE/FORMETEROL FUMARATE 80/4.5 mcg INHALER IH SCH ×2 (10:20→23:18)
[2019-03-08] MEDS: TOLNAFTATE 1% CREAM 15 GM TUBE TP SCH ×3 (10:20→23:19)
[2019-03-08] MEDS: METHOCARBAMOL 500 MG TABLET PO PRN (10:21)
--- NOTE | 2019-03-08 13:34 | PN ---
[facility] CIWA - CIWA Score Nausea/Vomitin-No Nausea/No Vomiting Muscle Tremors: None Anxiety: 2 Agitation: 0-Normal Activity Paroxysmal Sweats: 1-Minimal Palms Moist Orientation: 0-Oriented Tacttile Disturbances: 0-None Auditory Disturbances: 0-None Visual Disturbances: 0-None Headache: 1-Very Mild CIWA-Ar Total Score: 4 S COWS - Scale Resting Pulse: 0= [place] 80 or Below Sweatin= Chills/Flushing Restless Observation: 1= Difficult to Sit Still Pupil Size: 0= Normal to Room Light Bone or Joint Aches: 0= None Runny Nose/ Eye Tearin= None GI Upset > 30mins: 0= None Tremor Observation of Outstretched Hands: 0= None Yawning Observation: 1= 1-2x During Session Anxiety or Irritability: 1=Feels Anxious/Irritable Goose Flesh Skin: 0=Smooth Skin COWS Score: 4 [facility] Progress Note (SOAP) Subjective: c/o mild sweats, headache, and anxiety. Objective: 03/08/19 13:33 Vital Signs 03/08/19 03/08/19 06:00 09:47 Temperature 97.7 F Pulse Rate 57 L 56 L Respiratory 18 18 Rate Blood Pressure 133/80 128/78 Lab Results WBC 4.7 K/mm3 (4.0-10.0) 03/05/19 08:00 RBC 5.17 M/mm3 (4.00-5.60) 03/05/19 08:00 Hgb 13.9 GM/dL (11.7-16.9) 03/05/19 08:00 Hct 42.3 % (35.4-49) 03/05/19 08:00 MCV 81.9 fl (80-96) 03/05/19 08:00 MCHC 32.9 g/dl (32.0-35.9) 03/05/19 08:00 RDW 13.4 % (11.9-15.9) 03/05/19 08:00 Plt Count 276 K/MM3 (134-434) 03/05/19 08:00 Sodium 138 mmol/L (136-145) 03/05/19 08:00 Potassium 4.5 mmol/L (3.5-5.1) 03/05/19 08:00 Chloride 104 mmol/L (98-107) 03/05/19 08:00 Carbon Dioxide 31 mmol/L (21-32) 03/05/19 08:00 Anion Gap 4 MMOL/L (8-16) L 03/05/19 08:00 BUN 13.8 mg/dL (7-18) 03/05/19 08:00 Creatinine 0.7 mg/dL (0.55-1.3) 03/05/19 08:00 Random Glucose 126 mg/dL (74-106) H 03/05/19 08:00 Calcium 8.9 mg/dL (8.5-10.1) 03/05/19 08:00 Labs noted. Assessment: 03/08/19 13:33 AOX3, in no acute respiratory distress. Full ROM, ambulating in the unit. mild withdrawal symptoms. For discharge tomorrow. 03/08/19 13:34 Plan: continue detox. D/C in AM.
[2019-03-08] MEDS: MONTELUKAST NA 10 MG TABLET PO SCH (23:18)
[2019-03-08] MEDS: traZODone HCL 100 MG TABLET (FP) PO SCH (23:18)
[2019-03-08] MEDS: MELATONIN 5 MG TABLETS PO PRN (23:19)
[2019-03-08] MEDS: THIAMINE HCL 100 MG TABLET (FP) PO SCH (23:19)
[2019-03-09] MEDS ORDERED: METHADONE HCL 5 MG TABLET (FOR DETOX USE ONLY) PO ONE (06:00)
[2019-03-09] MEDS: METHOCARBAMOL 500 MG TABLET PO PRN (06:15)
[2019-03-09 09:26] VITALS: BP 120/75; PULSE 69; TEMP 97.7
[2019-03-09] MEDS: PRENATAL VITAMINS W/ FOLIC ACID TABLET (FP) PO SCH (10:27)
[2019-03-09] MEDS: TOLNAFTATE 1% CREAM 15 GM TUBE TP SCH (10:27)
[2019-03-09] MEDS: BUDESONIDE/FORMETEROL FUMARATE 80/4.5 mcg INHALER IH SCH (10:28)
--- NOTE | 2019-03-09 13:29 | PN ---
[facility] CIWA - CIWA Score Nausea/Vomitin-No Nausea/No Vomiting Muscle Tremors: 1-None Visible, but [place] Anxiety: 0-No Anxiety, at Ease Agitation: 0-Normal Activity Paroxysmal Sweats: No Perspiration Orientation: 0-Oriented Tacttile Disturbances: 0-None Auditory Disturbances: 0-None Visual Disturbances: 0-None Headache: 0-None Present CIWA-Ar Total Score: 1 [facility] COWS - Scale Resting Pulse: 0= [place] 80 or Below Sweatin= No chills or Flushing Restless Observation: 0= Sits Still Pupil Size: 0= Normal to Room Light Bone or Joint Aches: 1= Mild Discomfort Runny Nose/ Eye Tearin= None GI Upset > 30mins: 0= None Tremor Observation of Outstretched Hands: 1= Tremor [place], Not Seen Yawning Observation: 0= None Anxiety or Irritability: 0= None Goose Flesh Skin: 0=Smooth Skin COWS Score: 2 [facility] Progress Note (SOAP) Subjective: offers no complaints Objective: 03/09/19 13:28 A & O x 3 Gait steady not in acute distress Assessment: 03/09/19 13:28 Vital Signs Temperature 97.7 F 03/09/19 09:26 Pulse Rate 69 03/09/19 09:26 Respiratory Rate 18 03/09/19 09:26 Blood Pressure 120/75 03/09/19 09:26 O2 Sat by Pulse Oximetry (%) Plan: for d/c
--- NOTE | 2019-03-09 13:30 | DS ---
[facility] Detox Discharge Summary Admission Date: 03/04/19 Discharge Date: 03/09/19 - History Additional Comments: completed detox For aftercare rehab at [facility] - Physical Exam Results Vital Signs: Vital Signs Temperature 97.7 F 03/09/19 09:26 Pulse Rate 69 03/09/19 09:26 Respiratory Rate 18 03/09/19 09:26 Blood Pressure 120/75 03/09/19 09:26 O2 Sat by Pulse Oximetry (%) - Treatment Hospital Course: Detox Protocol Followed, Detoxed Safely, Responded well, Discharged Condition Good, Rehab Referral Accepted Patient has Accepted a Rehab Referral to: [facility] - Medication Discharge Medications: Ambulatory Orders traZODone HCL [Trazodone HCl] 50 mg PO HS 05/06/18 Montelukast Na [Singulair -] 10 mg PO HS 10/24/18 Prednisone 10 mg PO ASDIR 3 Days #6 tablet 03/04/19 - Diagnosis (1) Alcohol dependence with uncomplicated withdrawal Status: Acute (2) Allergic rhinitis Status: Acute (3) Asthma Status: Acute Qualifiers: Asthma severity: mild Asthma persistence: intermittent Asthma complication type: with acute exacerbation Qualified Code(s): J45.21 - Mild intermittent asthma with (acute) exacerbation (4) IVDU (intravenous drug user) Status: Acute (5) Opioid dependence with withdrawal Status: Acute (6) Sedative, hypnotic or anxiolytic dependence with withdrawal, uncomplicated Status: Acute (7) Substance induced mood disorder Status: Acute (8) History of hepatitis C Status: Chronic (9) Insomnia Status: Chronic Qualifiers: Insomnia type: unspecified Qualified Code(s): G47.00 - Insomnia, unspecified (10) History of seizure Status: Suspected - AMA Did Patient Leave Against Medical Advice: No
== END 2019-03-09 12:45 | disposition home or self-care (01) | DRG 773 ==
LOC: YASAS 16:00 → Y6N 22:33
PROVIDERS: ADMIT Surgery; ATTEND Surgery
PROC: HZ2ZZZZ Detoxification Services for Substance Abuse Treatment (ICD-10-PCS; principal; 2019-03-04)
DX: F11.23 Opioid dependence with withdrawal (principal); F10.230 Alcohol dependence with withdrawal, uncomplicated; F13.230 Sedative, hypnotic or anxiolytic dependence with withdrawal, uncomplicated; F14.20 Cocaine dependence, uncomplicated; F17.210 Nicotine dependence, cigarettes, uncomplicated; F19.24 Other psychoactive substance dependence with psychoactive substance-induced mood disorder; G47.00 Insomnia, unspecified; J45.21 Mild intermittent asthma with (acute) exacerbation; J30.9 Allergic rhinitis, unspecified; B35.3 Tinea pedis; R63.8 Other symptoms and signs concerning food and fluid intake; Z86.19 Personal history of other infectious and parasitic diseases; Z86.69 Personal history of other diseases of the nervous system and sense organs; Z88.0 Allergy status to penicillin; Z91.018 Allergy to other foods; Z59.0 Homelessness
CPT/HCPCS: 36415; 80053; 81003; 85027; 94640

== ENCOUNTER 2019-03-09 12:52 | Inpatient (IN) | payer OTHER ==
[2019-03-09] MEDS ORDERED: NICOTINE POLACRILEX 2 MG GUM BUC PRN (13:32)
[2019-03-09] MEDS ORDERED: guaiFENesin 200 MG/10 ML 10 ML UNIT-DOSE CUPS PO PRN (13:32)
[2019-03-09] MEDS ORDERED: LOPERAMIDE HCL 2 MG CAPSULE PO PRN (13:32)
[2019-03-09] MEDS ORDERED: P-EPHED 60MG/TRIPROLIDI 2.5MG TABLET PO PRN (13:32)
[2019-03-09] MEDS ORDERED: ACETAMINOPHEN 325 MG TABLET (FP) PO PRN (13:32)
[2019-03-09] MEDS ORDERED: MAG HYDROX/AL HYDROX/SIMETH 30 ML UNIT-DOSE CUP PO PRN (13:32)
[2019-03-09] MEDS ORDERED: IBUPROFEN 400 MG TABLET (FP) PO PRN (13:32)
[2019-03-09] MEDS ORDERED: MAGNESIUM HYDROX 2400MG/30ML ORAL SUSPENSION 30 ML CUP PO PRN (13:32)
[2019-03-09] MEDS ORDERED: MAGNESIUM CITRATE 300 ML BOTTLE PO PRN (13:32)
[2019-03-09] MEDS ORDERED: MENTHOL/PHENOL 1 EACH UD MM PRN (13:32)
--- NOTE | 2019-03-09 13:32 | HP ---
[facility] Rehab Assess/Revision - Admission History Admitted to Rehab from: [facility] Date of Admission to Rehab: 03/09/19 - Findings Detox History & Physical reviewed: Yes Concur with findings: Yes Inpatient Rehab Admission - Rehab Decision to Admit Inpatient rehab admission?: Yes - Initial Determination Are CD services needed?: Yes Free of communicable disease: Yes Not in need of hospitalization: Yes - Rehab Admission Criteria Previous failed treatment: Yes Poor recovery environment: Yes Comorbidities: Yes Lacks judgement: Yes Patient is meeting Inpatient Rehab admission criteria:: Yes
[2019-03-09] MEDS ORDERED: ALBUTEROL SO4 8 GM HFA INHALER IH PRN (20:08)
[2019-03-09] MEDS: traZODone HCL 100 MG TABLET (FP) PO SCH (21:57)
[2019-03-09] MEDS: BUDESONIDE/FORMETEROL FUMARATE 80/4.5 mcg INHALER IH SCH (21:58)
[2019-03-09] MEDS: MONTELUKAST NA 10 MG TABLET PO SCH (21:58)
[2019-03-09] MEDS: THIAMINE HCL 100 MG TABLET (FP) PO SCH (21:59)
[2019-03-09] MEDS ORDERED: MELATONIN 5 MG TABLETS PO PRN (22:00)
[2019-03-10] MEDS: BUDESONIDE/FORMETEROL FUMARATE 80/4.5 mcg INHALER IH SCH ×2 (10:05→21:26)
[2019-03-10] MEDS: PRENATAL VITAMINS W/ FOLIC ACID TABLET (FP) PO SCH (10:06)
[2019-03-10] MEDS: NICOTINE 14 MG/24 HOURS TOPICAL PATCH TD SCH (12:02)
--- NOTE | 2019-03-10 13:25 | PN ---
[facility] Progress Note Note: Pt is a 33 y/o pt with a hx of alcohol,heroin,cocaine and bzo admitted to rehab on 03/09/[address]. Pt is c/o withdrawal sx and hx fungal feet and reports it's itchy and wants treatment. Pt was spoken to concerning possible MAT today. Pt declined all forms including Methadone stating "I was on methadone 80 mg for a year and half but i was detoxed in [facility] and it worked but i don't wanna get back and i don't want Suboxone either. I want to be free of all things because i wanna go to [facility] when i get out of Rehab". Vital Signs - 24 hr 03/09/19 03/10/19 03/10/19 16:57 00:30 06:51 Temperature 97.8 F 97.8 F Pulse Rate 57 L 56 L Respiratory 20 18 16 Rate Blood Pressure 119/75 145/98 Feet:Dry and scaly patches. no redness or swelling. A/P Tinea Pedis Protracted W/S Tinactin cream apply to feet as directed. Clonidine 0.1 mg po BID as directed with parameters. Robaxin 500 mg po tid prn for muscle relaxer.
[2019-03-10] MEDS: TOLNAFTATE 1% CREAM 15 GM TUBE TP SCH ×2 (15:05→21:29)
[2019-03-10] MEDS: METHOCARBAMOL 500 MG TABLET PO PRN (18:56)
[2019-03-10] MEDS: cloNIDine HCL 0.1 MG TABLET PO SCH (21:26)
[2019-03-10] MEDS: MONTELUKAST NA 10 MG TABLET PO SCH (21:27)
[2019-03-10] MEDS: traZODone HCL 100 MG TABLET (FP) PO SCH (21:27)
[2019-03-10] MEDS: THIAMINE HCL 100 MG TABLET (FP) PO SCH (21:27)
[2019-03-11 06:54] VITALS: TEMP 97.4
[2019-03-11] MEDS: NICOTINE 14 MG/24 HOURS TOPICAL PATCH TD SCH (10:18)
[2019-03-11] MEDS: BUDESONIDE/FORMETEROL FUMARATE 80/4.5 mcg INHALER IH SCH (10:18)
[2019-03-11] MEDS: cloNIDine HCL 0.1 MG TABLET PO SCH (10:18)
[2019-03-11] MEDS: PRENATAL VITAMINS W/ FOLIC ACID TABLET (FP) PO SCH (10:18)
[2019-03-11] MEDS: TOLNAFTATE 1% CREAM 15 GM TUBE TP SCH (10:19)
[2019-03-11] MEDS: METHOCARBAMOL 500 MG TABLET PO PRN (10:20)
[2019-03-11 13:08] VITALS: BP 119/60; PULSE 59
--- NOTE | 2019-03-11 15:29 | DS ---
[facility] Rehab Discharge Summary - [facility] Rehab Discharge Summary Admission Date: 03/09/19 Discharge Date: 03/11/19 - History Present History: Alcohol dependence, Cocaine dependence, Opioid dependence, Sedative dependence Additional Comments: Pt is a 33 y/o male admitted to rehab after completion of detox. Pt is requesting for early discharge, does not want to continue with inpatient rehab and wants to follow up at [facility] program as d/w his counselor. During course of stay pt was offered MAT but he declined recommendations for suboxone or Methadone suggestions. Pt reports he goes to [facility], in [place] for medical care. Pertinent Past History: Asthma Allergic Rhinitis Hep C I.VDU - Discharge Physical Exam Vital Signs: Vital Signs Temperature 97.4 F L 03/11/19 06:53 Pulse Rate 59 L 03/11/19 10:00 Respiratory Rate 18 03/11/19 06:53 Blood Pressure 119/60 03/11/19 10:00 O2 Sat by Pulse Oximetry (%) Alert o x 3 nad denies s/h/i oob ambulating with steady gait Cardiac:s1 s2,rrr lungs:cta,kennedi.no wheeze or rhonchi Abdomen:soft,+bs,nt,nd Extremities/Skin:No edemafull ROM,skin intact Pertinent Admission Physical Exam Findings: Laboratory Tests 03/10/19 07:45 HIV 1&2 Antibody Screen Negative HIV P24 Antigen Negative - Treatment Discharge Condition: Discharge condition good Hospital Course: rehab stay was safe CD aftercare accepted - Medication Discharge Medications: Ambulatory Orders traZODone HCL [Trazodone HCl] 50 mg PO HS 05/06/18 Montelukast Na [Singulair -] 10 mg PO HS 10/24/18 Albuterol Sulfate Inhaler - [Ventolin Hfa Inhaler -] 1 - 2 inh PO Q4H PRN - Medication-Assisted Treatment (MAT) Medication-Assisted Treatment (MAT): No - Discharge Instructions Diet, activity, other medical instructions: Diet:Regular Activity: oob ad nichelle Other medical instructions:Follow up with aftercare at [facility] as recommended. Follow up with primary care at [place], [place] - Diagnosis (1) Alcohol dependence Current Visit: Yes Status: Chronic Qualifiers: Substance use status: uncomplicated Qualified Code(s): F10.20 - Alcohol dependence, uncomplicated (2) Allergic rhinitis Current Visit: Yes Status: Chronic Qualifiers: Allergic rhinitis seasonality: unspecified (3) Asthma Current Visit: Yes Status: Chronic Qualifiers: Asthma severity: mild Asthma persistence: intermittent Asthma complication type: with acute exacerbation Qualified Code(s): J45.21 - Mild intermittent asthma with (acute) exacerbation (4) IVDU (intravenous drug user) Current Visit: Yes Status: Chronic (5) Opioid dependence Current Visit: Yes Status: Chronic Qualifiers: Substance use status: uncomplicated Qualified Code(s): F11.20 - Opioid dependence, uncomplicated (6) Cocaine dependence Current Visit: Yes Status: Chronic Qualifiers: Substance use status: uncomplicated Qualified Code(s): F14.20 - Cocaine dependence, uncomplicated (7) History of hepatitis C Current Visit: Yes Status: Chronic (8) Nicotine dependence Current Visit: Yes Status: Chronic Qualifiers: Nicotine product type: cigarettes Substance use status: uncomplicated Qualified Code(s): F17.210 - Nicotine dependence, cigarettes, uncomplicated (9) Tinea pedis Current Visit: Yes Status: Chronic Qualifiers: Laterality: bilateral Qualified Code(s): B35.3 - Tinea pedis (10) History of seizure Current Visit: Yes Status: Suspected - Follow-up Referral Minutes to complete discharge: 10 - AMA Did Patient Leave Against Medical Advice: No Additional Comments: Voluntary discharge.
== END 2019-03-11 15:30 | disposition home or self-care (01) | DRG 773 ==
LOC: YASAS 12:52 → Y5N 12:53 → Y3W 14:12 → Y5N 14:14
PROVIDERS: ADMIT Neuromusculoskeletal Medicine & OMM; ATTEND Neuromusculoskeletal Medicine & OMM
PROC: HZ2ZZZZ Detoxification Services for Substance Abuse Treatment (ICD-10-PCS; principal; 2019-03-09)
DX: F11.20 Opioid dependence, uncomplicated (principal); F10.20 Alcohol dependence, uncomplicated; F14.20 Cocaine dependence, uncomplicated; F17.210 Nicotine dependence, cigarettes, uncomplicated; J45.21 Mild intermittent asthma with (acute) exacerbation; B35.3 Tinea pedis; B18.2 Chronic viral hepatitis C; J30.2 Other seasonal allergic rhinitis; Z86.69 Personal history of other diseases of the nervous system and sense organs; Z88.0 Allergy status to penicillin; Z91.018 Allergy to other foods
CPT/HCPCS: 36415; 87389; J0735

== ENCOUNTER 2019-05-06 16:42 | Inpatient (IN) | payer OTHER ==
[2019-05-06 17:59] VITALS: BMI 23.6
--- NOTE | 2019-05-06 20:25 | HP ---
COWS - Scale Resting Pulse: 0= [place] 80 or Below Sweatin=Flushed/Facial Moisture Restless Observation: 1= Difficult to Sit Still Pupil Size: 1= Pupils >than Normal Bone or Joint Aches: 4=Acute Joint/Muscle Pain Runny Nose/ Eye Tearin= Nasal Congestion GI Upset > 30mins: 3= Vomiting/Diarrhea (vomiting x 3, diarrhea x 2) Tremor Observation: 2= Slight Tremor Visible Yawning Observation: 1= 1-2x During Session Anxiety or Irritability: 2=Irritable/Anxious Goose Flesh Skin: 3=Piloerection COWS Score: 20 CIWA Score Nausea/Vomitin Muscle Tremors: 3 Anxiety: 3 Agitation: 2 Paroxysmal Sweats: 3 Orientation: 1-Uncertain about Date Tacttile Disturbances: 1-Very Mild Itch/Numbness Auditory Disturbances: 1-Very Mild Visual Disturbances: 0-None Headache: 3-Moderate CIWA-Ar Total Score: 20 - Admission Criteria OASAS Guidelines: Admission for Medically Managed Detox: Requires at least one of the followin. CIWA greater than 12 2. Seizures within the past 24 hours 3. Delirium tremens within the past 24 hours 4. Hallucinations within the past 24 hours 5. Acute intervention needed for co occurring medical disorder 6. Acute intervention needed for co occurring psychiatric disorder 7. Severe withdrawal that cannot be handled at a lower level of care (continued vomiting, continued diarrhea, abnormal vital signs) requiring intravenous medication and/or fluids 8. Admitting History and Physical - Smoking History Smoking history: Current some day smoker Have you smoked in the past 12 months: No Aproximately how many cigarettes per day: 3 - Alcohol/Substance Use Hx Alcohol Use: Yes Admission [facility] Chief Complaint: Heroin and alcohol withdrawal symptoms Allergies/Adverse Reactions: Allergies Allergy/AdvReac Type Severity Reaction Status Date / Time Penicillins Allergy Severe Hives Verified 05/06/19 17:52 tomato Allergy Intermediate Itching Verified 05/06/19 17:52 tomato suce Allergy Intermediate Itching Uncoded 05/06/19 17:52 History of Present Illness: 33 years old male with a long history of heroin and alcohol withdrawal symptoms is seeking admission to detox. Patient has been admitted multiple times and reports that he does not know why he always relapse after treatment. He has medical history of asthma, Hep. C, alcohol related seizures and depression. He reports intermittent blackout, last was yesterday morning. He denies suicidal ideation at this time Data Detail Level: [employer] Confidential Drug Utilization Report Search Terms: shakira Moody, 1985 Search Date: 05/06/2019 08:18:54 PM The Drug Utilization Report below displays all of the controlled substance prescriptions, if any, that your patient has filled in the last twelve months. The information displayed on this report is compiled from pharmacy submissions to the Department, and accurately reflects the information as submitted by the pharmacies. There are no results for the search terms that you entered. Exam Limitations: No Limitations - Ebola screening Have you traveled outside of the country in the last 21 days: No (N) Have you had contact with anyone from an Ebola affected area: No Do you have a fever: No - Review of Systems Constitutional: Chills, Loss of Appetite, Malaise, Night Sweats, Changes in sleep EENT: reports: Nose Congestion, Sinus Pressure Respiratory: reports: No Symptoms reported Cardiac: reports: No Symptoms Reported GI: reports: Diarrhea, Poor Appetite, Poor Fluid Intake, Vomiting, Abdominal cramping : reports: No Symptoms Reported Musculoskeletal: reports: Joint Pain, Muscle Pain Integumentary: reports: Dryness, Flushing Neuro: reports: Headache, Tremors Endocrine: reports: No Symptoms Reported Hematology: reports: No Symptoms Reported Psychiatric: reports: Mood/Affect Appropiate, Orientated x3, Anxious Other Systems: Reviewed and Negative Patient History - Patient Medical History Hx Anemia: No Hx Asthma: Yes Hx Chronic Obstructive Pulmonary Disease (COPD): No Hx Cancer: No Hx Cardiac Disorders: No Hx Congestive Heart Failure: No Hx Hypertension: No Hx Hypercholesterolemia: No Hx Pacemaker: No HX Cerebrovascular Accident: No Hx Seizures: No Hx Dementia: No Hx Diabetes: No Hx Gastrointestinal Disorders: No Hx Liver Disease: No Hx Genitourinary Disorders: No Hx Sexually Transmitted Disorders: No Hx Renal Disease (ESRD): No Hx Thyroid Disease: No Hx Human Immunodeficiency Virus (HIV): No (12/19: Negative) Hx Hepatitis C: Yes Hx Depression: Yes Hx Suicide Attempt: No Hx Bipolar Disorder: No Hx Schizophrenia: No - Patient Surgical History Past Surgical History: No Hx Neurologic Surgery: No Hx Cataract Extraction: No Hx Cardiac Surgery: No Hx Lung Surgery: No Hx Abdominal Surgery: No Hx Appendectomy: No Hx Cholecystectomy: No Hx Genitourinary Surgery: No Hx Orthopedic Surgery: No Other Surgical History: DENIES. Anesthesia Reaction: No - PPD History Previous Implant?: Yes Documented Results: Negative w/proof Implanted On Prior [facility] Admission?: Yes Date: 03/22/18 Results: 0mm PPD to be Administered?: Yes - Reproductive History Patient is a Female of Child Bearing Age (11 -55 yrs old): No (male) - Smoking Cessation Smoking history: Current some day smoker Have you smoked in the past 12 months: Yes Aproximately how many cigarettes per day: 3 Cigars Per Day: 0 Hx Chewing Tobacco Use: Yes (every other day) Initiated information on smoking cessation: Yes 'Breaking Loose' booklet given: 05/06/19 - Substance & Tx. History Hx Alcohol Use: Yes Hx Substance Use: Yes Substance Use Type: Alcohol, Cocaine, Heroin Hx Substance Use Treatment: Yes ([facility]) - Substances abused Heroin Substance route: Injection Frequency: Daily Amount used: 9 bags Age of first use: 18 Date of last use: 05/06/19 Cocaine Substance route: Injection Frequency: Daily Amount used: $20 Age of first use: 18 Date of last use: 05/03/19 Alprazolam (Xanax) Substance route: Oral Frequency: 3-6 times per week Amount used: 2-3 PILLS Age of first use: 26 Date of last use: 10/19/18 Benzodiazepine (Klonopin) Substance route: Oral Frequency: 1-2 times per week Amount used: 10 PILLS WHEN USED Age of first use: 22 Date of last use: 10/21/18 Alcohol Substance route: Oral Frequency: Daily Amount used: 3 pints of vodka Age of first use: 21 Date of last use: 05/06/19 Other Other (specify): Klonopin Substance route: Oral Frequency: Daily Amount used: 2 mg Age of first use: 33 Date of last use: 04/29/19 Admission Physical Exam [facility] - Vital Signs Vital Signs: Vital Signs - 24 hr 05/06/19 17:50 Temperature 97.4 F L Pulse Rate 73 Respiratory 20 Rate Blood Pressure 133/76 - Physical General Appearance: Yes: Moderate Distress, Tremorous, Irritable, Sweating, Anxious HEENTM: Yes: Nasal Congestion, Rhinorrhea Respiratory: Yes: Lungs Clear, Normal Breath Sounds, No Respiratory Distress Neck: Yes: Supple Breast: Yes: Breast Exam Deferred Abdominal: Yes: Normal Bowel Sounds Genitourinary: Yes: Within Normal Limits Back: Yes: Normal Inspection Musculoskeletal: Yes: Muscle Pain Extremities: Yes: Tremors Neurological: Yes: Within Normal Limits, Alert, Normal Mood/Affect Integumentary: Yes: Warm Lymphatic: Yes: Within Normal Limits - Diagnostic (1) Hepatitis C Current Visit: Yes Status: Chronic Qualifiers: Viral hepatitis chronicity: chronic Hepatic coma status: without hepatic coma Qualified Code(s): B18.2 - Chronic viral hepatitis C (2) Opioid dependence with withdrawal Current Visit: Yes Status: Chronic (3) Opioid dependence with withdrawal Current Visit: No Status: Acute (4) Anxiety Current Visit: Yes Status: Chronic (5) Asthma Current Visit: Yes Status: Chronic Qualifiers: Asthma severity: mild Asthma persistence: intermittent Asthma complication type: with acute exacerbation Qualified Code(s): J45.21 - Mild intermittent asthma with (acute) exacerbation (6) Cocaine dependence with withdrawal Current Visit: Yes Status: Chronic (7) Depression Current Visit: Yes Status: Chronic Qualifiers: Depression Type: unspecified Qualified Code(s): F32.9 - Major depressive disorder, single episode, unspecified (8) IVDU (intravenous drug user) Current Visit: Yes Status: Chronic (9) Nicotine dependence Current Visit: Yes Status: Chronic Qualifiers: Nicotine product type: cigarettes Substance use status: uncomplicated Qualified Code(s): F17.210 - Nicotine dependence, cigarettes, uncomplicated Cleared for Admission S - Detox or Rehab [facility] Level of Care: Medically Managed Detox Regimen/Protocol: Methadone/Valium Claeared for Rehab Admission: No Breathalyzer - Breathalyzer Breathalyzer: 0.022 Urine Drug Screen - Test Device Lot number: [id number] Expiration date: 12/31/20 - Control Is test valid?: Yes - Results Drug screen NEGATIVE: No Urine drug screen results: FEN-Fentanyl, MOP-Opiates, MTD-Methadone, BZO- Benzodiazepines Inpatient Rehab Admission - Rehab Decision to Admit Inpatient rehab admission?: No
[2019-05-06] MEDS ORDERED: MAGNESIUM HYDROX 2400MG/30ML ORAL SUSPENSION 30 ML CUP PO PRN (20:41)
[2019-05-06] MEDS ORDERED: BISMUTH SUBSALICYLATE 524 MG/30 ML UD PO PRN (20:41)
[2019-05-06] MEDS ORDERED: hydrOXYzine PAMOATE 25 MG CAPSULE (FP) PO PRN (20:41)
[2019-05-06] MEDS ORDERED: cloNIDine HCL 0.1 MG TABLET PO PRN (20:41)
[2019-05-06] MEDS ORDERED: NICOTINE POLACRILEX 2 MG GUM BUC PRN (20:41)
[2019-05-06] MEDS ORDERED: MAG HYDROX/AL HYDROX/SIMETH 30 ML UNIT-DOSE CUP PO PRN (20:41)
[2019-05-06] MEDS ORDERED: METHADONE HCL 10 MG TABLET (FOR DETOX USE ONLY) PO ONE (20:41)
[2019-05-06] MEDS ORDERED: ACETAMINOPHEN 325 MG TABLET (FP) PO PRN ×2 (20:41)
[2019-05-06] MEDS ORDERED: MELATONIN 5 MG TABLETS PO PRN (20:41)
[2019-05-06] MEDS ORDERED: MAGNESIUM CITRATE 300 ML BOTTLE PO PRN (20:41)
[2019-05-06] MEDS ORDERED: IBUPROFEN 400 MG TABLET (FP) PO PRN (20:41)
[2019-05-06] MEDS: ALBUTEROL SO4 8 GM HFA INHALER IH PRN (21:52)
[2019-05-06] MEDS: diazePAM 5 MG TABLET PO SCH (21:53)
[2019-05-06] MEDS: THIAMINE HCL 100 MG TABLET (FP) PO SCH (21:53)
[2019-05-06] MEDS: MONTELUKAST NA 10 MG TABLET PO SCH (21:53)
[2019-05-07] MEDS: diazePAM 5 MG TABLET PO SCH ×3 (05:34→22:21)
[2019-05-07] MEDS ORDERED: METHADONE HCL 5 MG TABLET (FOR DETOX USE ONLY) ONE (09:39)
[2019-05-07] MEDS ORDERED: METHADONE HCL 10 MG TABLET (FOR DETOX USE ONLY) ONE (09:39)
[2019-05-07] MEDS: ALBUTEROL SO4 8 GM HFA INHALER IH PRN (09:52)
[2019-05-07] MEDS: PRENATAL VITAMINS W/ FOLIC ACID TABLET (FP) PO SCH (09:52)
[2019-05-07] MEDS: diazePAM 5 MG TABLET PO PRN ×2 (09:52→18:57)
[2019-05-07] MEDS: NICOTINE 14 MG/24 HOURS TOPICAL PATCH TD SCH (09:52)
[2019-05-07] MEDS ORDERED: METHADONE (DETOX) 20 MG, METHADONE (DETOX) 5 MG PO ONE (10:00)
[2019-05-07 10:33] LABS: HEMATOCRIT 38.9 % (35.4-49); HEMOGLOBIN 12.7 GM/dL (11.7-16.9); MCHC 32.7 g/dl (32.0-35.9); MEAN CELL VOLUME 82.6 fl (80-96); MEAN PLT VOLUME 8.5 fl (7.5-11.1); PLATELET COUNT 210 K/MM3 (134-434); RBC 4.71 M/mm3 (4.00-5.60); RDW 14.2 % (11.9-15.9)
--- NOTE | 2019-05-07 10:36 | EKG ---
Test Reason : Blood Pressure : / mmHG Vent. Rate : 069 BPM Atrial Rate : 069 BPM P-R Int : 144 ms QRS Dur : 096 ms QT Int : 408 ms P-R-T Axes : 074 042 068 degrees QTc Int : 437 ms NORMAL SINUS RHYTHM NORMAL ECG WHEN COMPARED WITH ECG OF 23-OCT-2018 17:10, NO SIGNIFICANT CHANGE WAS FOUND Confirmed by RICKEY ALVA MD ([id number]) on 05/07/2019 10:35:50 AM Referred By: Tre Barton Confirmed By:RICKEY ALVA MD
[2019-05-07 10:50] LABS: ALBUMIN 3.1 g/dl (3.4-5.0); BILIRUBIN,TOTAL 0.6 mg/dL (0.2-1); BLOOD UREA NITROGEN 11.8 mg/dL (7-18); CALCIUM 8.4 mg/dL (8.5-10.1); CREATININE 0.7 mg/dL (0.55-1.3); POTASSIUM 4.1 mmol/L (3.5-5.1); TOT PROT 6.1 g/dl (6.4-8.2)
--- NOTE | 2019-05-07 10:57 | PN ---
[facility] CIWA - CIWA Score Nausea/Vomitin-Mild Nausea/No Vomiting Muscle Tremors: 3 Anxiety: 2 Agitation: 1-Slight > Activity Paroxysmal Sweats: 2 Orientation: 3-Disoriented Date>2 days Tacttile Disturbances: 1-Very Mild Itch/Numbness Auditory Disturbances: 1-Very Mild Visual Disturbances: 0-None Headache: 1-Very Mild CIWA-Ar Total Score: 15 BHS COWS - Scale Resting Pulse: 0= [place] 80 or Below Sweatin= Chills/Flushing Restless Observation: 0= Sits Still Pupil Size: 1= Pupils >than Normal Bone or Joint Aches: 1= Mild Discomfort Runny Nose/ Eye Tearin= Nasal Congestion GI Upset > 30mins: 2= Nausea/Diarrhea Tremor Observation of Outstretched Hands: 2= Slight Tremor Visible Yawning Observation: 2= >3x During Session Anxiety or Irritability: 2=Irritable/Anxious Goose Flesh Skin: 3=Piloerection COWS Score: 15 S Progress Note (SOAP) Subjective: 33 years old male admitted on 05/06/19 for alcohol benzo opiate withdrawal sx management treated with valium and methadone detox regimen feeling tired resting on bed limited conversation with staff Objective: 05/07/19 10:56 Vital Signs Temperature 97.1 F L 05/07/19 09:20 Pulse Rate 80 05/07/19 09:20 Respiratory Rate 18 05/07/19 09:20 Blood Pressure 112/66 05/07/19 09:20 O2 Sat by Pulse Oximetry (%) Laboratory Last Values WBC 8.0 K/mm3 (4.0-10.0) 05/07/19 08:00 RBC 4.71 M/mm3 (4.00-5.60) 05/07/19 08:00 Hgb 12.7 GM/dL (11.7-16.9) 05/07/19 08:00 Hct 38.9 % (35.4-49) 05/07/19 08:00 MCV 82.6 fl (80-96) 05/07/19 08:00 MCH 27.0 pg (25.7-33.7) 05/07/19 08:00 MCHC 32.7 g/dl (32.0-35.9) 05/07/19 08:00 RDW 14.2 % (11.9-15.9) 05/07/19 08:00 Plt Count 210 K/MM3 (134-434) D 05/07/19 08:00 MPV 8.5 fl (7.5-11.1) 05/07/19 08:00 Sodium 142 mmol/L (136-145) 05/07/19 08:00 Potassium 4.1 mmol/L (3.5-5.1) 05/07/19 08:00 Chloride 106 mmol/L (98-107) 05/07/19 08:00 Carbon Dioxide 30 mmol/L (21-32) 05/07/19 08:00 Anion Gap 7 MMOL/L (8-16) L 05/07/19 08:00 BUN 11.8 mg/dL (7-18) 05/07/19 08:00 Creatinine 0.7 mg/dL (0.55-1.3) 05/07/19 08:00 Est GFR (CKD-EPI)AfAm 142.70 05/07/19 08:00 Est GFR (CKD-EPI)NonAf 123.13 05/07/19 08:00 Random Glucose 81 mg/dL (74-106) 05/07/19 08:00 Calcium 8.4 mg/dL (8.5-10.1) L 05/07/19 08:00 Total Bilirubin 0.6 mg/dL (0.2-1) 05/07/19 08:00 AST 30 U/L (15-37) 05/07/19 08:00 ALT 38 U/L (13-61) 05/07/19 08:00 Alkaline Phosphatase 88 U/L (45-117) 05/07/19 08:00 Total Protein 6.1 g/dl (6.4-8.2) L 05/07/19 08:00 Albumin 3.1 g/dl (3.4-5.0) L 05/07/19 08:00 lab noted Assessment: 05/07/19 10:57 ALCOHOL BENZO OPIATE WITHDRAWAL SX Plan: CONTINUE VALIUM AND METHADONE DETOX REGIMEN
[2019-05-07] MEDS: ALBUTEROL SO4 0.083% IH SOL 2.5 MG/3 ML VIAL.NEB. NEB PRN ×2 (14:46→21:05)
--- NOTE | 2019-05-07 17:13 | CONSULT ---
[facility] Psychiatric Consult - Data Date of interview: 05/07/19 Admission source: [facility] Identifying data: This is one of multiple admissions to [facility] for this 33 y/ o male self-referred for detoxification )SOPHIE issues : heroin, nicotine , alcohol). Interviewed at [address] [place] [address]. Patient is single, a father of two, homeless (retirement), unemployed and supported on food stamps + occasional donations by relatives. Substance Abuse History: Discussed with the patient. Details in current [facility] report as follows : Smoking history: Current some day smoker. Have you smoked in the past 12 months: Yes. Aproximately how many cigarettes per day: 3. Cigars Per Day: 0. Hx Chewing Tobacco Use: Yes (every other day). Initiated information on smoking cessation: Yes. 'Breaking Loose' booklet given: . - Substance & Tx. History. Hx Alcohol Use: Yes. Hx Substance Use: Yes. Substance Use Type: Alcohol, Cocaine, Heroin. Hx Substance Use Treatment: Yes ( [facility]). - Substances abused. Heroin. Substance route: Injection. Frequency : Daily. Amount used: 9 bags. Age of first use: 18. Date of last use: . Cocaine. Substance route: Injection. Frequency: Daily. Amount used: $ 20. Age of first use: 18. Date of last use: 05/03/19. Alprazolam (Xanax). Substance route: Oral. Frequency: 3-6 times per week. Amount used: 2-3 PILLS. Age of first use: 26. Date of last use: 10/19/18. Benzodiazepine ( Klonopin). Substance route: Oral. Frequency: 1-2 times per week. Amount used : 10 PILLS WHEN USED. Age of first use: 22. Date of last use: 10/21/18. Alcohol. Substance route: Oral. Frequency: Daily. Amount used: 3 pints of vodka. Age of first use: 21. Date of last use: 05/06/19. Other. Other ( specify): Klonopin. Substance route: Oral. Frequency: Daily. Amount used: 2 mg. Age of first use: 33. Date of last use: 04/29/19 Medical History: Hepatitis C and bronchial asthma. Psychiatric History: Onset of psychiatric disturbances : 2013 (suicide attempt via overdose with clonidine; committed to the psychiatric inpatient service at [facility]). Precipitant : of biological father. Several hospitalizations followed : [facility], [facility] in [facility], [facility] in [facility]. Patient endorses the diagnosis of Bipolar Disorder. No psychiatric OPD care for several months. Patient used to be maintained on a regimen of depakote, abilify and gabapentin ( not taken for months). Chronically non-adherent to medications. According to records, the patient has also been tried on other agents which include lexapro, risperdal and remeron. Mr Fransisco admits to a history of one suicide attempt via overdose with clonidine (2012). Physical/Sexual Abuse/Trauma History: Patient denies. Additional Comment: Urine drug screen results: FEN-Fentanyl, MOP-Opiates, MTD- Methadone, BZO-Benzodiazepines. Noted. Mental Status Exam - Mental Status Exam Alert and Oriented to: Time, Place, Person Cognitive Function: Good Patient Appearance: Well Groomed Mood: Nervous, Withdrawn Affect: Mood Congruent, Constricted Patient Behavior: Fatigued, Appropriate, Cooperative Speech Pattern: Clear Voice Loudness: Normal Thought Process: Intact, Goal Oriented Thought Disorder: Not Present Hallucinations: Denies Suicidal Ideation: Denies Homicidal Ideation: Denies Insight/Judgement: Poor Sleep: Poorly (wants trazodone), Difficulty falling asleep Appetite: Good Muscle strength/Tone: Normal Gait/Station: Normal Psychiatric Findings - Problem List (Glide 1, 2,3) (1) Alcohol dependence with uncomplicated withdrawal Current Visit: Yes Status: Acute (2) Opioid dependence with withdrawal Current Visit: Yes Status: Acute (3) Cocaine use disorder Current Visit: Yes Status: Chronic (4) Nicotine dependence Current Visit: Yes Status: Chronic Qualifiers: Nicotine product type: cigarettes Substance use status: uncomplicated Qualified Code(s): F17.210 - Nicotine dependence, cigarettes, uncomplicated (5) Substance induced mood disorder Current Visit: Yes Status: Chronic (6) Insomnia Current Visit: Yes Status: Chronic Qualifiers: Insomnia type: unspecified Qualified Code(s): G47.00 - Insomnia, unspecified (7) History of bipolar disorder Current Visit: Yes Status: Chronic Comment: Non-compliant with OPD care. - Initial Treatment Plan Initial Treatment Plan: Psychoeducation. Sleep hygiene. Detoxification. MAT services discussed with the patient. Mr Moody insists on resuming ONLY trazodone 50 mg po hs. Ordered. Patient is made aware of potential for priapism. Gave verbal consent to Observation.
[2019-05-07] MEDS: THIAMINE HCL 100 MG TABLET (FP) PO SCH (22:21)
[2019-05-07] MEDS: MONTELUKAST NA 10 MG TABLET PO SCH (22:21)
[2019-05-07] MEDS: traZODone HCL 100 MG TABLET (FP) PO SCH (22:22)
[2019-05-08] MEDS: ALBUTEROL SO4 8 GM HFA INHALER IH PRN ×4 (04:14→22:11)
[2019-05-08] MEDS: guaiFENesin 200 MG/10 ML 10 ML UNIT-DOSE CUPS PO PRN ×2 (04:14→08:26)
[2019-05-08] MEDS: ALBUTEROL SO4 2.5/IPRATROPIUM 0.5 INH SOL 3 ML VIAL.NEB. NEB PRN ×3 (04:36→20:30)
[2019-05-08] MEDS: MENTHOL/PHENOL 1 EACH UD MM PRN ×3 (04:37→20:24)
[2019-05-08] MEDS: diazePAM 5 MG TABLET PO SCH ×2 (06:00→17:59)
[2019-05-08] MEDS ORDERED: METHADONE HCL 10 MG TABLET (FOR DETOX USE ONLY) PO ONE (10:00)
[2019-05-08] MEDS: PRENATAL VITAMINS W/ FOLIC ACID TABLET (FP) PO SCH (10:40)
[2019-05-08] MEDS: NICOTINE 14 MG/24 HOURS TOPICAL PATCH TD SCH (10:40)
[2019-05-08] MEDS: diazePAM 5 MG TABLET PO PRN ×3 (10:43→22:08)
[2019-05-08] MEDS ORDERED: AZITHROMYCIN 250 MG TABLET PO ONE (11:19)
--- NOTE | 2019-05-08 11:22 | PN ---
[facility] CIWA - CIWA Score Nausea/Vomitin-Mild Nausea/No Vomiting Muscle Tremors: 2 Anxiety: 3 Agitation: 2 Paroxysmal Sweats: 2 Orientation: 0-Oriented Tacttile Disturbances: 1-Very Mild Itch/Numbness Auditory Disturbances: 0-None Visual Disturbances: 0-None Headache: 0-None Present CIWA-Ar Total Score: 11 BHS COWS - Scale Resting Pulse: 1= [place] 81-100 Sweatin= Chills/Flushing Restless Observation: 0= Sits Still Pupil Size: 0= Normal to Room Light Bone or Joint Aches: 1= Mild Discomfort Runny Nose/ Eye Tearin= Nasal Congestion GI Upset > 30mins: 2= Nausea/Diarrhea Tremor Observation of Outstretched Hands: 2= Slight Tremor Visible Yawning Observation: 1= 1-2x During Session Anxiety or Irritability: 2=Irritable/Anxious Goose Flesh Skin: 0=Smooth Skin COWS Score: 11 [facility] Progress Note (SOAP) Subjective: 33 years old male admitted on 05/06/19 for alcohol benzo opiate withdrawal sx management treated with valium and methadone detox regimen report having a cold post nasal drip with coughing at night oral pharyngeal mild redness no lymph edematous ocean nasal spread mucinex claritin 10 mg zithromax Objective: 05/08/19 11:25 Vital Signs Temperature 98.3 F 05/08/19 09:11 Pulse Rate 87 05/08/19 09:11 Respiratory Rate 16 05/08/19 09:11 Blood Pressure 120/72 05/08/19 09:11 O2 Sat by Pulse Oximetry (%) 99 05/07/19 21:35 Laboratory Last Values WBC 8.0 K/mm3 (4.0-10.0) 05/07/19 08:00 RBC 4.71 M/mm3 (4.00-5.60) 05/07/19 08:00 Hgb 12.7 GM/dL (11.7-16.9) 05/07/19 08:00 Hct 38.9 % (35.4-49) 05/07/19 08:00 MCV 82.6 fl (80-96) 05/07/19 08:00 MCH 27.0 pg (25.7-33.7) 05/07/19 08:00 MCHC 32.7 g/dl (32.0-35.9) 05/07/19 08:00 RDW 14.2 % (11.9-15.9) 05/07/19 08:00 Plt Count 210 K/MM3 (134-434) D 05/07/19 08:00 MPV 8.5 fl (7.5-11.1) 05/07/19 08:00 Sodium 142 mmol/L (136-145) 05/07/19 08:00 Potassium 4.1 mmol/L (3.5-5.1) 05/07/19 08:00 Chloride 106 mmol/L (98-107) 05/07/19 08:00 Carbon Dioxide 30 mmol/L (21-32) 05/07/19 08:00 Anion Gap 7 MMOL/L (8-16) L 05/07/19 08:00 BUN 11.8 mg/dL (7-18) 05/07/19 08:00 Creatinine 0.7 mg/dL (0.55-1.3) 05/07/19 08:00 Est GFR (CKD-EPI)AfAm 142.70 05/07/19 08:00 Est GFR (CKD-EPI)NonAf 123.13 05/07/19 08:00 Random Glucose 81 mg/dL (74-106) 05/07/19 08:00 Calcium 8.4 mg/dL (8.5-10.1) L 05/07/19 08:00 Total Bilirubin 0.6 mg/dL (0.2-1) 05/07/19 08:00 AST 30 U/L (15-37) 05/07/19 08:00 ALT 38 U/L (13-61) 05/07/19 08:00 Alkaline Phosphatase 88 U/L (45-117) 05/07/19 08:00 Total Protein 6.1 g/dl (6.4-8.2) L 05/07/19 08:00 Albumin 3.1 g/dl (3.4-5.0) L 05/07/19 08:00 RPR Titer Nonreactive (NONREACTIVE) 05/07/19 08:00 lab noted Assessment: 05/08/19 11:26 alcohol benzo opiate withdrawal sx Plan: valium and methadone detox regimen
[2019-05-08] MEDS: LORATADINE 10 MG TABLET PO SCH (12:55)
[2019-05-08] MEDS: guaiFENesin 600 MG TABLET.ER (FP) PO SCH ×2 (12:56→22:08)
[2019-05-08] MEDS: SODIUM CHLORIDE NASAL SPRAY 44 ML BOTTLE NS SCH ×2 (15:21→22:10)
[2019-05-08] MEDS: METHOCARBAMOL 500 MG TABLET PO PRN (20:24)
[2019-05-08] MEDS: traZODone HCL 100 MG TABLET (FP) PO SCH (22:07)
[2019-05-08] MEDS: MONTELUKAST NA 10 MG TABLET PO SCH (22:08)
[2019-05-08] MEDS: THIAMINE HCL 100 MG TABLET (FP) PO SCH (22:08)
[2019-05-09] MEDS ORDERED: diazePAM 5 MG TABLET PO ONE (06:00)
[2019-05-09] MEDS: SODIUM CHLORIDE NASAL SPRAY 44 ML BOTTLE NS SCH ×3 (06:20→22:11)
[2019-05-09] MEDS ORDERED: METHADONE HCL 10 MG TABLET (FOR DETOX USE ONLY) ONE (09:15)
[2019-05-09] MEDS ORDERED: METHADONE HCL 5 MG TABLET (FOR DETOX USE ONLY) ONE (09:15)
[2019-05-09] MEDS: ALBUTEROL SO4 8 GM HFA INHALER IH PRN (09:50)
[2019-05-09] MEDS ORDERED: METHADONE (DETOX) 10 MG, METHADONE (DETOX) 5 MG PO ONE (10:00)
[2019-05-09] MEDS: METHOCARBAMOL 500 MG TABLET PO PRN (10:33)
[2019-05-09] MEDS: PRENATAL VITAMINS W/ FOLIC ACID TABLET (FP) PO SCH (10:33)
[2019-05-09] MEDS: LORATADINE 10 MG TABLET PO SCH (10:33)
[2019-05-09] MEDS: diazePAM 5 MG TABLET PO PRN (10:33)
[2019-05-09] MEDS: guaiFENesin 600 MG TABLET.ER (FP) PO SCH ×2 (10:33→22:11)
[2019-05-09] MEDS: ALBUTEROL SO4 2.5/IPRATROPIUM 0.5 INH SOL 3 ML VIAL.NEB. NEB PRN ×4 (10:34→22:40)
[2019-05-09] MEDS: AZITHROMYCIN 250 MG TABLET PO SCH (10:34)
[2019-05-09] MEDS: NICOTINE 14 MG/24 HOURS TOPICAL PATCH TD SCH (10:41)
--- NOTE | 2019-05-09 10:52 | PN ---
S CIWA - CIWA Score Nausea/Vomitin Muscle Tremors: 2 Anxiety: 3 Agitation: 0-Normal Activity Paroxysmal Sweats: 2 Orientation: 0-Oriented Tacttile Disturbances: 1-Very Mild Itch/Numbness Auditory Disturbances: 0-None Visual Disturbances: 1-Very Mild Sensitivity Headache: 1-Very Mild CIWA-Ar Total Score: 13 BHS COWS - Scale Resting Pulse: 4= AR > 121 Sweatin= Chills/Flushing Restless Observation: 0= Sits Still Pupil Size: 0= Normal to Room Light Bone or Joint Aches: 1= Mild Discomfort Runny Nose/ Eye Tearin= Runny Nose/Eyes GI Upset > 30mins: 0= None Tremor Observation of Outstretched Hands: 1= Tremor [place], Not Seen Yawning Observation: 1= 1-2x During Session Anxiety or Irritability: 1=Feels Anxious/Irritable Goose Flesh Skin: 0=Smooth Skin COWS Score: 11 BHS Progress Note (SOAP) Subjective: Patient c/o of withdrawal sx body aches, chills, sweats, interrupted sleep, cough since admission Objective: 05/09/19 10:52 Vital Signs Temperature 98.7 F 05/09/19 09:52 Pulse Rate 123 H 05/09/19 09:52 Respiratory Rate 18 05/09/19 09:52 Blood Pressure 122/79 05/09/19 09:52 O2 Sat by Pulse Oximetry (%) 99 05/07/19 21:35 Laboratory Last Values WBC 8.0 K/mm3 (4.0-10.0) 05/07/19 08:00 RBC 4.71 M/mm3 (4.00-5.60) 05/07/19 08:00 Hgb 12.7 GM/dL (11.7-16.9) 05/07/19 08:00 Hct 38.9 % (35.4-49) 05/07/19 08:00 MCV 82.6 fl (80-96) 05/07/19 08:00 MCH 27.0 pg (25.7-33.7) 05/07/19 08:00 MCHC 32.7 g/dl (32.0-35.9) 05/07/19 08:00 RDW 14.2 % (11.9-15.9) 05/07/19 08:00 Plt Count 210 K/MM3 (134-434) D 05/07/19 08:00 MPV 8.5 fl (7.5-11.1) 05/07/19 08:00 Sodium 142 mmol/L (136-145) 05/07/19 08:00 Potassium 4.1 mmol/L (3.5-5.1) 05/07/19 08:00 Chloride 106 mmol/L (98-107) 05/07/19 08:00 Carbon Dioxide 30 mmol/L (21-32) 05/07/19 08:00 Anion Gap 7 MMOL/L (8-16) L 05/07/19 08:00 BUN 11.8 mg/dL (7-18) 05/07/19 08:00 Creatinine 0.7 mg/dL (0.55-1.3) 05/07/19 08:00 Est GFR (CKD-EPI)AfAm 142.70 05/07/19 08:00 Est GFR (CKD-EPI)NonAf 123.13 05/07/19 08:00 Random Glucose 81 mg/dL (74-106) 05/07/19 08:00 Calcium 8.4 mg/dL (8.5-10.1) L 05/07/19 08:00 Total Bilirubin 0.6 mg/dL (0.2-1) 05/07/19 08:00 AST 30 U/L (15-37) 05/07/19 08:00 ALT 38 U/L (13-61) 05/07/19 08:00 Alkaline Phosphatase 88 U/L (45-117) 05/07/19 08:00 Total Protein 6.1 g/dl (6.4-8.2) L 05/07/19 08:00 Albumin 3.1 g/dl (3.4-5.0) L 05/07/19 08:00 RPR Titer Nonreactive (NONREACTIVE) 05/07/19 08:00 Assessment: 05/09/19 16:48 Patient is Aox3 no acute distress + cough EENT WNL + bilateral lower lobe wheezing + anxious Full no gait disturbance no edema or erythema asthma exacerbation without asthma withdrawal sx Plan: Continue [employer] Reports on symbicort BID for asthma , med ordered duoneb prn Ventolin PRN ordered increase po fluids patient symptoms improve post neb treatment continue to monitor
[2019-05-09] MEDS: GABAPENTIN 100 MG CAPSULE (FP) PO SCH ×2 (14:50→22:11)
[2019-05-09] MEDS: MONTELUKAST NA 10 MG TABLET PO SCH (22:11)
[2019-05-09] MEDS: THIAMINE HCL 100 MG TABLET (FP) PO SCH (22:11)
[2019-05-09] MEDS: BUDESONIDE/FORMETEROL FUMARATE 160/4.5 mcg INHALER IH SCH (22:28)
[2019-05-09] MEDS: traZODone HCL 100 MG TABLET (FP) PO SCH (22:29)
[2019-05-10] MEDS: GABAPENTIN 100 MG CAPSULE (FP) PO SCH ×3 (06:08→22:27)
[2019-05-10] MEDS: SODIUM CHLORIDE NASAL SPRAY 44 ML BOTTLE NS SCH ×3 (06:08→22:27)
[2019-05-10] MEDS: ALBUTEROL SO4 2.5/IPRATROPIUM 0.5 INH SOL 3 ML VIAL.NEB. NEB PRN ×2 (07:36→20:31)
[2019-05-10] MEDS ORDERED: METHADONE HCL 10 MG TABLET (FOR DETOX USE ONLY) PO ONE (10:00)
[2019-05-10] MEDS: NICOTINE 14 MG/24 HOURS TOPICAL PATCH TD SCH (11:02)
[2019-05-10] MEDS: AZITHROMYCIN 250 MG TABLET PO SCH (11:03)
[2019-05-10] MEDS: LORATADINE 10 MG TABLET PO SCH (11:03)
[2019-05-10] MEDS: guaiFENesin 600 MG TABLET.ER (FP) PO SCH ×2 (11:03→22:25)
[2019-05-10] MEDS: PRENATAL VITAMINS W/ FOLIC ACID TABLET (FP) PO SCH (11:03)
[2019-05-10] MEDS: ALBUTEROL SO4 8 GM HFA INHALER IH PRN (11:04)
[2019-05-10] MEDS: METHOCARBAMOL 500 MG TABLET PO PRN ×2 (11:08→22:27)
[2019-05-10] MEDS: BUDESONIDE/FORMETEROL FUMARATE 160/4.5 mcg INHALER IH SCH ×2 (11:47→22:27)
--- NOTE | 2019-05-10 12:55 | PN ---
[facility] CIWA - CIWA Score Nausea/Vomitin-No Nausea/No Vomiting Muscle Tremors: None Anxiety: 1-Mildly Anxious Agitation: 0-Normal Activity Paroxysmal Sweats: 2 Orientation: 0-Oriented Tacttile Disturbances: 0-None Auditory Disturbances: 0-None Visual Disturbances: 0-None Headache: 0-None Present CIWA-Ar Total Score: 3 S COWS - Scale Resting Pulse: 1= [place] 81-100 Sweatin= Chills/Flushing Restless Observation: 0= Sits Still Pupil Size: 0= Normal to Room Light Bone or Joint Aches: 0= None Runny Nose/ Eye Tearin= None GI Upset > 30mins: 0= None Tremor Observation of Outstretched Hands: 0= None Yawning Observation: 0= None Anxiety or Irritability: 1=Feels Anxious/Irritable Goose Flesh Skin: 0=Smooth Skin COWS Score: 3 [facility] Progress Note (SOAP) Subjective: c/o mild withdrawal symptoms. Objective: 05/10/19 12:54 Vital Signs 05/10/19 05/10/19 07:26 09:22 Temperature 97.1 F L 98.2 F Pulse Rate 96 H 101 H Respiratory 18 18 Rate Blood Pressure 129/74 123/84 Laboratory Last Values WBC 8.0 K/mm3 (4.0-10.0) 05/07/19 08:00 RBC 4.71 M/mm3 (4.00-5.60) 05/07/19 08:00 Hgb 12.7 GM/dL (11.7-16.9) 05/07/19 08:00 Hct 38.9 % (35.4-49) 05/07/19 08:00 MCV 82.6 fl (80-96) 05/07/19 08:00 MCH 27.0 pg (25.7-33.7) 05/07/19 08:00 MCHC 32.7 g/dl (32.0-35.9) 05/07/19 08:00 RDW 14.2 % (11.9-15.9) 05/07/19 08:00 Plt Count 210 K/MM3 (134-434) D 05/07/19 08:00 MPV 8.5 fl (7.5-11.1) 05/07/19 08:00 Sodium 142 mmol/L (136-145) 05/07/19 08:00 Potassium 4.1 mmol/L (3.5-5.1) 05/07/19 08:00 Chloride 106 mmol/L (98-107) 05/07/19 08:00 Carbon Dioxide 30 mmol/L (21-32) 05/07/19 08:00 Anion Gap 7 MMOL/L (8-16) L 05/07/19 08:00 BUN 11.8 mg/dL (7-18) 05/07/19 08:00 Creatinine 0.7 mg/dL (0.55-1.3) 05/07/19 08:00 Est GFR (CKD-EPI)AfAm 142.70 05/07/19 08:00 Est GFR (CKD-EPI)NonAf 123.13 05/07/19 08:00 Random Glucose 81 mg/dL (74-106) 05/07/19 08:00 Calcium 8.4 mg/dL (8.5-10.1) L 05/07/19 08:00 Total Bilirubin 0.6 mg/dL (0.2-1) 05/07/19 08:00 AST 30 U/L (15-37) 05/07/19 08:00 ALT 38 U/L (13-61) 05/07/19 08:00 Alkaline Phosphatase 88 U/L (45-117) 05/07/19 08:00 Total Protein 6.1 g/dl (6.4-8.2) L 05/07/19 08:00 Albumin 3.1 g/dl (3.4-5.0) L 05/07/19 08:00 RPR Titer Nonreactive (NONREACTIVE) 05/07/19 08:00 Labs noted. Assessment: 05/10/19 12:54 AOX3, in no acute respiratory distress. Full ROM, ambulating in the unit. mild Withdrawal symptoms. For d/c tomorrow. 05/10/19 12:55 Plan: continue detox. D/C in AM.
[2019-05-10] MEDS: MONTELUKAST NA 10 MG TABLET PO SCH (22:25)
[2019-05-10] MEDS: traZODone HCL 100 MG TABLET (FP) PO SCH (22:25)
[2019-05-10] MEDS: THIAMINE HCL 100 MG TABLET (FP) PO SCH (22:25)
[2019-05-11] MEDS ORDERED: METHADONE HCL 5 MG TABLET (FOR DETOX USE ONLY) PO ONE (06:00)
[2019-05-11] MEDS: METHOCARBAMOL 500 MG TABLET PO PRN (06:15)
[2019-05-11] MEDS: GABAPENTIN 100 MG CAPSULE (FP) PO SCH (06:15)
[2019-05-11] MEDS: SODIUM CHLORIDE NASAL SPRAY 44 ML BOTTLE NS SCH (07:54)
[2019-05-11 09:18] VITALS: BP 117/77; PULSE 72; TEMP 97
[2019-05-11] MEDS: AZITHROMYCIN 250 MG TABLET PO SCH (09:40)
[2019-05-11] MEDS: BUDESONIDE/FORMETEROL FUMARATE 160/4.5 mcg INHALER IH SCH (09:40)
[2019-05-11] MEDS: LORATADINE 10 MG TABLET PO SCH (09:40)
[2019-05-11] MEDS: PRENATAL VITAMINS W/ FOLIC ACID TABLET (FP) PO SCH (09:40)
[2019-05-11] MEDS: NICOTINE 14 MG/24 HOURS TOPICAL PATCH TD SCH (09:40)
[2019-05-11] MEDS: guaiFENesin 600 MG TABLET.ER (FP) PO SCH (09:40)
--- NOTE | 2019-05-11 15:06 | DS ---
[facility] Detox Discharge Summary Admission Date: 05/06/19 Discharge Date: 05/11/19 - History Present History: Alcohol Dependence, Opioid Dependence, Sedative Dependence Additional Comments: 33 years old male admitted on 05/06/19 for alcohol benzo opiate withdrawal sx management treated with valium and methadone detox regimen patient tolerated well alert oriented x 3 cardiac s1s2 regular rate rhythm respiratory clear lung bilaterally on auscultation skin warm and dry - Physical Exam Results Vital Signs: Vital Signs Temperature 97.0 F L 05/11/19 09:17 Pulse Rate 72 05/11/19 09:17 Respiratory Rate 18 05/11/19 09:17 Blood Pressure 117/77 05/11/19 09:17 O2 Sat by Pulse Oximetry (%) 97 05/09/19 11:04 Pertinent Admission Physical Exam Findings: alcohol benzo opiate withdrawal sx Laboratory Last Values WBC 8.0 K/mm3 (4.0-10.0) 05/07/19 08:00 RBC 4.71 M/mm3 (4.00-5.60) 05/07/19 08:00 Hgb 12.7 GM/dL (11.7-16.9) 05/07/19 08:00 Hct 38.9 % (35.4-49) 05/07/19 08:00 MCV 82.6 fl (80-96) 05/07/19 08:00 MCH 27.0 pg (25.7-33.7) 05/07/19 08:00 MCHC 32.7 g/dl (32.0-35.9) 05/07/19 08:00 RDW 14.2 % (11.9-15.9) 05/07/19 08:00 Plt Count 210 K/MM3 (134-434) D 05/07/19 08:00 MPV 8.5 fl (7.5-11.1) 05/07/19 08:00 Sodium 142 mmol/L (136-145) 05/07/19 08:00 Potassium 4.1 mmol/L (3.5-5.1) 05/07/19 08:00 Chloride 106 mmol/L (98-107) 05/07/19 08:00 Carbon Dioxide 30 mmol/L (21-32) 05/07/19 08:00 Anion Gap 7 MMOL/L (8-16) L 05/07/19 08:00 BUN 11.8 mg/dL (7-18) 05/07/19 08:00 Creatinine 0.7 mg/dL (0.55-1.3) 05/07/19 08:00 Est GFR (CKD-EPI)AfAm 142.70 05/07/19 08:00 Est GFR (CKD-EPI)NonAf 123.13 05/07/19 08:00 Random Glucose 81 mg/dL (74-106) 05/07/19 08:00 Calcium 8.4 mg/dL (8.5-10.1) L 05/07/19 08:00 Total Bilirubin 0.6 mg/dL (0.2-1) 05/07/19 08:00 AST 30 U/L (15-37) 05/07/19 08:00 ALT 38 U/L (13-61) 05/07/19 08:00 Alkaline Phosphatase 88 U/L (45-117) 05/07/19 08:00 Total Protein 6.1 g/dl (6.4-8.2) L 05/07/19 08:00 Albumin 3.1 g/dl (3.4-5.0) L 05/07/19 08:00 RPR Titer Nonreactive (NONREACTIVE) 05/07/19 08:00 lab noted - Treatment Hospital Course: Detox Protocol Followed, Detoxed Safely, Responded well, Discharged Condition Good, Rehab Referral Accepted Patient has Accepted [facility] Ref[facility] - Medication Discharge Medications: Ambulatory Orders traZODone HCL [Trazodone HCl] 50 mg PO HS 05/06/18 Montelukast Na [Singulair -] 10 mg PO HS 10/24/18 Albuterol Sulfate Inhaler - [Ventolin Hfa Inhaler -] 1 - 2 inh PO Q4H PRN Naloxone HCl [Narcan] 4 mg NS ASDIR PRN #1 spray 05/07/19 - Diagnosis (1) Asthma Status: Chronic Qualifiers: Asthma severity: mild Asthma persistence: intermittent Asthma complication type: with status asthmaticus Qualified Code(s): J45.22 - Mild intermittent asthma with status asthmaticus (2) Hepatitis C Status: Chronic Qualifiers: Viral hepatitis chronicity: chronic Hepatic coma status: without hepatic coma Qualified Code(s): B18.2 - Chronic viral hepatitis C (3) Opioid dependence with withdrawal Status: Acute (4) Sedative, hypnotic or anxiolytic dependence with withdrawal, uncomplicated Status: Acute (5) Weight decreased Status: Acute - AMA Did Patient Leave Against Medical Advice: No CIWA Score - CIWA Score Nausea/Vomitin-No Nausea/No Vomiting Muscle Tremors: None Anxiety: 1-Mildly Anxious Agitation: 0-Normal Activity Paroxysmal Sweats: No Perspiration Orientation: 0-Oriented Tacttile Disturbances: 0-None Auditory Disturbances: 0-None Visual Disturbances: 0-None Headache: 0-None Present CIWA-Ar Total Score: 1 COWS (PN) - Opiate Withdrawal Resting Pulse: 0= [place] 80 or Below Sweatin= Chills/Flushing Restless Observation: 0= Sits Still Pupil Size: 0= Normal to Room Light Bone or Joint Aches: 0= None Runny Nose/ Eye Tearin= None GI Upset > 30mins: 0= None Tremor Observation of Outstretched Hands: 0= None Yawning Observation: 0= None Anxiety or Irritability: 0= None Goose Flesh Skin: 0=Smooth Skin COWS Score: 1
== END 2019-05-11 09:37 | disposition home or self-care (01) | DRG 773 ==
LOC: YASAS 16:42 → Y3N 21:04
PROVIDERS: ADMIT Allergy & Immunology; ATTEND Allergy & Immunology
PROC: HZ2ZZZZ Detoxification Services for Substance Abuse Treatment (ICD-10-PCS; principal; 2019-05-06)
DX: F10.230 Alcohol dependence with withdrawal, uncomplicated (principal); F11.23 Opioid dependence with withdrawal; F13.230 Sedative, hypnotic or anxiolytic dependence with withdrawal, uncomplicated; F14.20 Cocaine dependence, uncomplicated; F17.210 Nicotine dependence, cigarettes, uncomplicated; F31.9 Bipolar disorder, unspecified; F19.24 Other psychoactive substance dependence with psychoactive substance-induced mood disorder; F41.9 Anxiety disorder, unspecified; J45.22 Mild intermittent asthma with status asthmaticus; G47.00 Insomnia, unspecified; B18.2 Chronic viral hepatitis C; R63.4 Abnormal weight loss; Z68.23 Body mass index [BMI] 23.0-23.9, adult; Z88.0 Allergy status to penicillin; Z91.018 Allergy to other foods
CPT/HCPCS: 36415; 80053; 85027; 86593; 93005; 93010; 94640

== ENCOUNTER 2019-08-05 16:34 | Inpatient (IN) | payer OTHER ==
--- NOTE | 2019-08-05 17:19 | HP ---
CIWA Score Nausea/Vomitin-Mild Nausea/No Vomiting Muscle Tremors: None Anxiety: 4-Mod. Anxious/Guarded Agitation: 4-Moderately Restless Paroxysmal Sweats: 3 Orientation: 2-Disoriented Date<2 days Tacttile Disturbances: 2-Mild Itch/Numbness/Burn Auditory Disturbances: 0-None Visual Disturbances: 2-Mild Sensitivity (to light) Headache: 3-Moderate (5/10) CIWA-Ar Total Score: 21 - Admission Criteria OASAS Guidelines: Admission for Medically Managed Detox: Requires at least one of the followin. CIWA greater than 12 2. Seizures within the past 24 hours 3. Delirium tremens within the past 24 hours 4. Hallucinations within the past 24 hours 5. Acute intervention needed for co occurring medical disorder 6. Acute intervention needed for co occurring psychiatric disorder 7. Severe withdrawal that cannot be handled at a lower level of care (continued vomiting, continued diarrhea, abnormal vital signs) requiring intravenous medication and/or fluids 8. Patient presents the following: CIWA greater than 12 Admission Criteria Met: Admission criteria met Admitting History and Physical - Smoking History Smoking history: Current some day smoker Have you smoked in the past 12 months: Yes Aproximately how many cigarettes per day: 3 - Alcohol/Substance Use Hx Alcohol Use: Yes Admission ROS S - HPI Chief Complaint: c/o withdrawal sx's Allergies/Adverse Reactions: Allergies Allergy/AdvReac Type Severity Reaction Status Date / Time Penicillins Allergy Severe Hives Verified 05/06/19 17:52 tomato Allergy Intermediate Itching Verified 05/06/19 17:52 tomato suce Allergy Intermediate Itching Uncoded 05/06/19 17:52 History of Present Illness: here for alcohol detox. self referred [facility]. last dc 05/2019. presents today with c/o withdrawal sx's. seeking detox. client reports daily use of alcohol. last drink several hours ago. 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 he is also on mmtp with reported dose 110 mg at start program. ldm 08/04/2019. pending verification. he also admits to cocaine and thc abuse. client reports he was able to maintain abstinence sinc his last dc till about 2 weeks ago when he relapsed. longest clean time 10 months while incracerated. + ivdu, + overdose x 12, + black outs, denies hx/ sz, si/hi/avh. lives in [place], unemployed, open legal cases . Exam Limitations: No Limitations - Ebola screening Have you traveled outside of the country in the last 21 days: No Have you had contact with anyone from an Ebola affected area: No Have you been sick,other than usual withdrawal symptoms: No Do you have a fever: No - Review of Systems Constitutional: Malaise, Night Sweats, Changes in sleep EENT: reports: Nose Congestion (runny nose), Dental Problems (missing teeth) Respiratory: reports: No Symptoms reported Cardiac: reports: No Symptoms Reported GI: reports: Diarrhea, Nausea, Poor Appetite, Poor Fluid Intake : reports: No Symptoms Reported Musculoskeletal: reports: No Symptoms Reported Integumentary: reports: Sweating Neuro: reports: Headache Endocrine: reports: No Symptoms Reported Hematology: reports: No Symptoms Reported Psychiatric: reports: Agitated (irritable), Anxious, Depressed Other Systems: Reviewed and Negative Patient History - Patient Medical History Hx Anemia: No Hx Asthma: Yes Hx Chronic Obstructive Pulmonary Disease (COPD): No Hx Cancer: No Hx Cardiac Disorders: No Hx Congestive Heart Failure: No Hx Hypertension: No Hx Hypercholesterolemia: No Hx Pacemaker: No HX Cerebrovascular Accident: No Hx Seizures: No Hx Dementia: No Hx Diabetes: No Hx Gastrointestinal Disorders: No Hx Liver Disease: No Hx Genitourinary Disorders: No Hx Sexually Transmitted Disorders: No Hx Renal Disease (ESRD): No Hx Thyroid Disease: No Hx Human Immunodeficiency Virus (HIV): No (12/19: Negative) Hx Hepatitis C: Yes (carrier) Hx Depression: Yes Hx Suicide Attempt: No Hx Bipolar Disorder: No Hx Schizophrenia: No - Patient Surgical History Past Surgical History: No Hx Neurologic Surgery: No Hx Cataract Extraction: No Hx Cardiac Surgery: No Hx Lung Surgery: No Hx Breast Surgery: No Hx Breast Biopsy: No Hx Abdominal Surgery: No Hx Appendectomy: No Hx Cholecystectomy: No Hx Genitourinary Surgery: No Hx Section: No Hx Orthopedic Surgery: No Other Surgical History: DENIES. Anesthesia Reaction: No - PPD History Previous Implant?: Yes Documented Results: Negative w/proof Implanted On Prior [facility] Admission?: Yes Date: 05/08/19 Results: 0mm PPD to be Administered?: No - Smoking Cessation Smoking history: Current every day smoker Have you smoked in the past 12 months: Yes Aproximately how many cigarettes per day: 10 Cigars Per Day: 0 Hx Chewing Tobacco Use: No Initiated information on smoking cessation: Yes 'Breaking Loose' booklet given: 08/05/19 - Substance & Tx. History Hx Alcohol Use: Yes Hx Substance Use: Yes Substance Use Type: Alcohol, Cocaine, Heroin, Marijuana, Prescribed (methadone) Hx Substance Use Treatment: Yes ([facility]) - Substances abused Heroin Substance route: Injection Frequency: Daily Amount used: 5 bags Age of first use: 23 Date of last use: 08/05/19 (3 bags) Alcohol Other (specify): vodka Substance route: Oral Frequency: Daily Amount used: 2 pints Age of first use: 18 Date of last use: 08/05/19 (1/2 pint) Cocaine Substance route: Injection Frequency: Daily Amount used: $50 Age of first use: 18 Date of last use: 08/04/19 Marijuana/Hashish Substance route: Smoking Frequency: 1-2 times per week Amount used: 2 joints Age of first use: 17 Date of last use: 08/05/19 Admission Physical Exam [facility] - Physical General Appearance: Yes: Moderate Distress, Tremorous (felt), Sweating, Anxious HEENTM: Yes: EOMI, Normocephalic, Normal Voice, ANASTACIA, Pharynx Normal, Other ( missing teeth) Respiratory: Yes: Chest Non-Tender, Lungs Clear, Normal Breath Sounds, No Respiratory Distress, No Accessory Muscle Use Neck: Yes: No masses,lesions,Nodules, Supple, Trachea in good position Breast: Yes: Breast Exam Deferred Cardiology: Yes: Regular Rhythm, Regular Rate, S1, S2 Abdominal: Yes: Non Tender, Soft, Increased Bowel Sounds Genitourinary: Yes: Within Normal Limits (no complaints) Back: Yes: Normal Inspection Musculoskeletal: Yes: full range of Motion, Gait Steady Extremities: Yes: Normal Range of Motion, Non-Tender, Tremors (felt) Neurological: Yes: Alert, Motor Strength 5/5, Depressed Affect (situational) Integumentary: Yes: Cold (cool), Moist, Track Shelley (to both ac) Lymphatic: Yes: Within Normal Limits - Diagnostic (1) Alcohol dependence with uncomplicated withdrawal Current Visit: Yes Status: Acute (2) Anxiety Current Visit: Yes Status: Acute (3) Asthma Current Visit: Yes Status: Chronic Qualifiers: Asthma severity: mild Asthma persistence: intermittent Asthma complication type: uncomplicated Qualified Code(s): J45.20 - Mild intermittent asthma, uncomplicated (4) Cocaine dependence Current Visit: Yes Status: Chronic Qualifiers: Substance use status: uncomplicated Qualified Code(s): F14.20 - Cocaine dependence, uncomplicated (5) History of hepatitis C Current Visit: Yes Status: Chronic (6) IVDU (intravenous drug user) Current Visit: Yes Status: Acute (7) Insomnia Current Visit: Yes Status: Suspected Qualifiers: Insomnia type: unspecified Qualified Code(s): G47.00 - Insomnia, unspecified (8) Nicotine dependence Current Visit: Yes Status: Chronic Qualifiers: Nicotine product type: cigarettes Substance use status: uncomplicated Qualified Code(s): F17.210 - Nicotine dependence, cigarettes, uncomplicated (9) Substance induced mood disorder Current Visit: Yes Status: Suspected Cleared for Admission S - Detox or Rehab [facility] Level of Care: Medically Managed Detox Regimen/Protocol: Librium Claeared for Rehab Admission: No Breathalyzer - Breathalyzer Breathalyzer: 0 Urine Drug Screen - Test Device Lot number: [id number] Expiration date: 05/03/21 - Control Is test valid?: Yes - Results Drug screen NEGATIVE: No Urine drug screen results: [place]-Cocaine, FEN-Fentanyl, MOP-Opiates, MTD-Methadone Inpatient Rehab Admission - Rehab Decision to Admit Inpatient rehab admission?: No
[2019-08-05] MEDS ORDERED: ALBUTEROL SO4 HFA INHALER IH PRN (17:30)
[2019-08-05] MEDS ORDERED: DICYCLOMINE HCL 10 MG CAPSULE PO PRN (17:36)
[2019-08-05] MEDS ORDERED: chlordiazePOXIDE HCL 10 MG CAPSULE PO PRN (17:36)
[2019-08-05] MEDS ORDERED: BISMUTH SUBSALICYLATE 524 MG/30 ML UD PO PRN (17:36)
[2019-08-05] MEDS ORDERED: MAGNESIUM CITRATE 300 ML BOTTLE PO PRN (17:36)
[2019-08-05] MEDS ORDERED: IBUPROFEN 400 MG TABLET (FP) PO PRN (17:36)
[2019-08-05] MEDS ORDERED: guaiFENesin 200 MG/10 ML 10 ML UNIT-DOSE CUPS PO PRN (17:36)
[2019-08-05] MEDS ORDERED: MAG HYDROX/AL HYDROX/SIMETH 30 ML UNIT-DOSE CUP PO PRN (17:36)
[2019-08-05] MEDS ORDERED: MAGNESIUM HYDROX 2400MG/30ML ORAL SUSPENSION 30 ML CUP PO PRN (17:36)
[2019-08-05] MEDS ORDERED: NICOTINE POLACRILEX 2 MG GUM BUC PRN (17:36)
[2019-08-05] MEDS ORDERED: METHOCARBAMOL 500 MG TABLET PO PRN (17:36)
[2019-08-05] MEDS ORDERED: P-EPHED 60MG/TRIPROLIDI 2.5MG TABLET PO PRN (17:36)
[2019-08-05] MEDS ORDERED: MENTHOL/PHENOL 1 EACH UD MM PRN (17:36)
[2019-08-05] MEDS ORDERED: ACETAMINOPHEN 325 MG TABLET (FP) PO PRN ×2 (17:36)
[2019-08-05 17:54] VITALS: BMI 23.6
[2019-08-05] MEDS ORDERED: ONDANSETRON *ODT* 4 MG TABLET SL ONE (18:30)
[2019-08-05] MEDS: hydrOXYzine PAMOATE 25 MG CAPSULE (FP) PO SCH ×2 (18:42→22:44)
[2019-08-05] MEDS: chlordiazePOXIDE HCL 25 MG CAPSULE PO SCH (21:54)
[2019-08-05] MEDS: MELATONIN 5 MG TABLETS PO SCH (22:44)
[2019-08-05] MEDS: THIAMINE HCL 100 MG TABLET (FP) PO SCH (22:44)
[2019-08-05] MEDS: MONTELUKAST NA 10 MG TABLET PO SCH (22:44)
[2019-08-06] MEDS: chlordiazePOXIDE HCL 25 MG CAPSULE PO SCH ×2 (05:48→13:36)
[2019-08-06] MEDS: hydrOXYzine PAMOATE 25 MG CAPSULE (FP) PO SCH ×5 (05:48→22:09)
[2019-08-06] MEDS ORDERED: METHADONE HCL 10 MG TABLET PO ONE (08:53)
[2019-08-06] MEDS ORDERED: METHADONE 80 MG, METHADONE 30 MG PO ONE (09:05)
--- NOTE | 2019-08-06 10:07 | PN ---
S CIWA - CIWA Score Nausea/Vomitin-Mild Nausea/No Vomiting Muscle Tremors: 2 Anxiety: 2 Agitation: 2 Paroxysmal Sweats: 1-Minimal Palms Moist Orientation: 0-Oriented Tacttile Disturbances: 1-Very Mild Itch/Numbness Auditory Disturbances: 0-None Visual Disturbances: 0-None Headache: 1-Very Mild CIWA-Ar Total Score: 10 [facility] Progress Note (SOAP) Subjective: alert,irritable,anxious,interrupted sleep,painin the body,tremor Objective: 08/06/19 10:05 Vital Signs Temperature 98.1 F 08/06/19 09:41 Pulse Rate 71 08/06/19 09:41 Respiratory Rate 19 08/06/19 09:41 Blood Pressure 128/82 08/06/19 09:41 O2 Sat by Pulse Oximetry (%) 08/06/19 10:06 labs pending Assessment: 08/06/19 10:06 withdrawal symptom Plan: continue detox librium regimen,mmtp 110 mgs dailoy
[2019-08-06 10:37] LABS: HEMATOCRIT 39.2 % (35.4-49); HEMOGLOBIN 12.7 GM/dL (11.7-16.9); MCHC 32.5 g/dl (32.0-35.9); MEAN CELL VOLUME 83.1 fl (80-96); MEAN PLT VOLUME 8.4 fl (7.5-11.1); PLATELET COUNT 201 K/MM3 (134-434); RBC 4.72 M/mm3 (4.00-5.60); RDW 15.2 % (11.9-15.9); WHITE BLOOD COUNT 5.3 K/mm3 (4.0-10.0)
[2019-08-06] MEDS ORDERED: METHADONE HCL 40 MG DISPERSABLE TABLET ONE (10:43)
[2019-08-06] MEDS ORDERED: METHADONE HCL 10 MG TABLET ONE (10:43)
[2019-08-06] MEDS: PRENATAL VITAMINS W/ FOLIC ACID TABLET (FP) PO SCH (10:44)
[2019-08-06] MEDS: NICOTINE 14 MG/24 HOURS TOPICAL PATCH TD SCH (10:44)
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
[2019-08-06 10:56] LABS: ALBUMIN 3.2 g/dl (3.4-5.0); BLOOD UREA NITROGEN 11.9 mg/dL (7-18); CALCIUM 8.8 mg/dL (8.5-10.1); CREATININE 0.7 mg/dL (0.55-1.3); POTASSIUM 4.1 mmol/L (3.5-5.1); TOT PROT 6.6 g/dl (6.4-8.2)
[2019-08-06] MEDS ORDERED: diazePAM 5 MG TABLET PO PRN (14:47)
--- NOTE | 2019-08-06 14:57 | PN ---
S Progress Note Note: patient would like regimen to change from libium to valium,also ensure plus 120 mls po bid,tinactin cream
[2019-08-06] MEDS: diazePAM 5 MG TABLET PO SCH (22:08)
[2019-08-06] MEDS: MONTELUKAST NA 10 MG TABLET PO SCH (22:08)
[2019-08-06] MEDS: traZODone HCL 50 MG TABLET (FP) PO SCH (22:08)
[2019-08-06] MEDS: THIAMINE HCL 100 MG TABLET (FP) PO SCH (22:09)
[2019-08-06] MEDS: MELATONIN 5 MG TABLETS PO SCH (22:09)
[2019-08-06] MEDS: TOLNAFTATE 1% CREAM 15 GM TUBE TP SCH (22:10)
[2019-08-07] MEDS ORDERED: METHADONE HCL 10 MG TABLET ONE (04:33)
[2019-08-07] MEDS ORDERED: METHADONE HCL 40 MG DISPERSABLE TABLET ONE (04:33)
[2019-08-07] MEDS ORDERED: chlordiazePOXIDE 5 MG CAPSULE PO SCH (05:00)
[2019-08-07] MEDS ORDERED: METHADONE HCL 40 MG DISPERSABLE TABLET PO SCH (06:00)
[2019-08-07] MEDS: METHADONE 80 MG, METHADONE 30 MG PO SCH (07:50)
[2019-08-07] MEDS: diazePAM 5 MG TABLET PO SCH ×3 (07:50→21:33)
[2019-08-07] MEDS: hydrOXYzine PAMOATE 25 MG CAPSULE (FP) PO SCH ×5 (07:50→22:33)
--- NOTE | 2019-08-07 10:35 | PN ---
S CIWA - CIWA Score Nausea/Vomitin-Mild Nausea/No Vomiting Muscle Tremors: 1-None Visible, but [place] Anxiety: 3 Agitation: 3 Paroxysmal Sweats: No Perspiration Orientation: 0-Oriented Tacttile Disturbances: 1-Very Mild Itch/Numbness Auditory Disturbances: 0-None Visual Disturbances: 0-None Headache: 1-Very Mild CIWA-Ar Total Score: 10 S Progress Note (SOAP) Subjective: alert,irritable,anxious,interrupted sleep,pain in the body and back,patient is pacing on the hallway,disrupting the unit,securities present,Ernestine Carreno informed,patient need to be contracted Objective: 08/07/19 10:35 Vital Signs Temperature 97.6 F 08/07/19 08:36 Pulse Rate 82 08/07/19 08:36 Respiratory Rate 18 08/07/19 08:36 Blood Pressure 127/57 L 08/07/19 08:36 O2 Sat by Pulse Oximetry (%) 08/07/19 10:36 Laboratory Last Values WBC 5.3 K/mm3 (4.0-10.0) 08/06/19 07:30 RBC 4.72 M/mm3 (4.00-5.60) 08/06/19 07:30 Hgb 12.7 GM/dL (11.7-16.9) 08/06/19 07:30 Hct 39.2 % (35.4-49) 08/06/19 07:30 MCV 83.1 fl (80-96) 08/06/19 07:30 MCH 27.0 pg (25.7-33.7) 08/06/19 07:30 MCHC 32.5 g/dl (32.0-35.9) 08/06/19 07:30 RDW 15.2 % (11.9-15.9) 08/06/19 07:30 Plt Count 201 K/MM3 (134-434) 08/06/19 07:30 MPV 8.4 fl (7.5-11.1) 08/06/19 07:30 Sodium 143 mmol/L (136-145) 08/06/19 07:30 Potassium 4.1 mmol/L (3.5-5.1) 08/06/19 07:30 Chloride 109 mmol/L (98-107) H 08/06/19 07:30 Carbon Dioxide 30 mmol/L (21-32) 08/06/19 07:30 Anion Gap 4 MMOL/L (8-16) L 08/06/19 07:30 BUN 11.9 mg/dL (7-18) 08/06/19 07:30 Creatinine 0.7 mg/dL (0.55-1.3) 08/06/19 07:30 Est GFR (CKD-EPI)AfAm 142.70 08/06/19 07:30 Est GFR (CKD-EPI)NonAf 123.13 08/06/19 07:30 Random Glucose 78 mg/dL (74-106) 08/06/19 07:30 Calcium 8.8 mg/dL (8.5-10.1) 08/06/19 07:30 Total Bilirubin 1.0 mg/dL (0.2-1) 08/06/19 07:30 AST 37 U/L (15-37) 08/06/19 07:30 ALT 36 U/L (13-61) 08/06/19 07:30 Alkaline Phosphatase 95 U/L (45-117) 08/06/19 07:30 Total Protein 6.6 g/dl (6.4-8.2) 08/06/19 07:30 Albumin 3.2 g/dl (3.4-5.0) L 08/06/19 07:30 Assessment: 08/07/19 10:37 withdrawal symptom Plan: continue detox valium regimen,methadone maintenance 110 mgs po daily close monitoring
--- NOTE | 2019-08-07 11:18 | PN ---
[facility] Progress Note Note: seen by estela samuels,patient contracted ,patient agreed and complied to comply with unit rule ,plan for discharge in am ,patient need to go back to his mmtp clinic in am
[2019-08-07] MEDS: PRENATAL VITAMINS W/ FOLIC ACID TABLET (FP) PO SCH (11:54)
[2019-08-07] MEDS: NICOTINE 14 MG/24 HOURS TOPICAL PATCH TD SCH (11:55)
[2019-08-07] MEDS: TOLNAFTATE 1% CREAM 15 GM TUBE TP SCH ×2 (11:55→21:33)
[2019-08-07] MEDS: MONTELUKAST NA 10 MG TABLET PO SCH (21:33)
[2019-08-07] MEDS: MELATONIN 5 MG TABLETS PO SCH (21:34)
[2019-08-07] MEDS: THIAMINE HCL 100 MG TABLET (FP) PO SCH (21:34)
[2019-08-07] MEDS: traZODone HCL 50 MG TABLET (FP) PO SCH (21:34)
[2019-08-08] MEDS ORDERED: chlordiazePOXIDE HCL 10 MG CAPSULE PO PRN
[2019-08-08] MEDS ORDERED: METHADONE HCL 10 MG TABLET ONE (04:38)
[2019-08-08] MEDS ORDERED: METHADONE HCL 40 MG DISPERSABLE TABLET ONE (04:39)
[2019-08-08] MEDS ORDERED: chlordiazePOXIDE HCL 10 MG CAPSULE PO SCH (05:00)
[2019-08-08] MEDS: METHADONE 80 MG, METHADONE 30 MG PO SCH (05:27)
[2019-08-08] MEDS: hydrOXYzine PAMOATE 25 MG CAPSULE (FP) PO SCH (05:29)
[2019-08-08] MEDS ORDERED: diazePAM 5 MG TABLET PO SCH (06:00)
[2019-08-08 06:27] VITALS: BP 113/68; PULSE 66; TEMP 98.2
--- NOTE | 2019-08-08 08:52 | DS ---
[facility] Detox Discharge Summary Admission Date: 08/05/19 Discharge Date: 08/08/19 - History Present History: Alcohol Dependence, Cannabis Dependence, Opioid Dependence, Sedative Dependence - Physical Exam Results Vital Signs: Vital Signs Temperature 98.2 F 08/08/19 06:27 Pulse Rate 66 08/08/19 06:27 Respiratory Rate 16 08/08/19 06:27 Blood Pressure 113/68 08/08/19 06:27 O2 Sat by Pulse Oximetry (%) Pertinent Admission Physical Exam Findings: Vital Signs Temperature 98.2 F 08/08/19 06:27 Pulse Rate 66 08/08/19 06:27 Respiratory Rate 16 08/08/19 06:27 Blood Pressure 113/68 08/08/19 06:27 O2 Sat by Pulse Oximetry (%) Laboratory Tests 08/06/19 08/06/19 07:30 07:30 WBC 5.3 RBC 4.72 Hgb 12.7 Hct 39.2 MCV 83.1 MCH 27.0 MCHC 32.5 RDW 15.2 Plt Count 201 MPV 8.4 Sodium 143 Potassium 4.1 Chloride 109 H Carbon Dioxide 30 Anion Gap 4 L BUN 11.9 Creatinine 0.7 Est GFR (CKD-EPI)AfAm 142.70 Est GFR (CKD-EPI)NonAf 123.13 Random Glucose 78 Calcium 8.8 Total Bilirubin 1.0 AST 37 ALT 36 Alkaline Phosphatase 95 Total Protein 6.6 Albumin 3.2 L aaox3 ambulating no acute distress - Treatment Hospital Course: Detox Protocol Followed, Detoxed Safely, Responded well, Discharged Condition Good, Rehab Referral Accepted - Medication Discharge Medications: Ambulatory Orders traZODone HCL [Trazodone HCl] 50 mg PO HS 05/06/18 Montelukast Na [Singulair -] 10 mg PO HS 10/24/18 Albuterol Sulfate Inhaler - [Ventolin Hfa Inhaler -] 1 - 2 inh PO Q4H PRN 03/09/19 Naloxone HCl [Narcan] 4 mg NS ASDIR PRN #1 spray 05/07/19 - Diagnosis (1) Alcohol dependence with uncomplicated withdrawal Status: Acute (2) Anxiety Status: Acute (3) Bipolar I disorder Status: Acute (4) Bipolar disorder Status: Acute (5) Cannabis dependence Status: Acute (6) Cellulitis of left upper extremity Status: Acute (7) Cellulitis of right upper extremity Status: Acute (8) Cocaine dependence with withdrawal Status: Acute (9) Hypocalcemia Status: Acute (10) IVDU (intravenous drug user) Status: Acute (11) Opioid dependence with withdrawal Status: Acute (12) Sedative, hypnotic or anxiolytic dependence with withdrawal, uncomplicated Status: Acute (13) Substance induced mood disorder Status: Acute (14) Substance-induced sleep disorder Status: Acute (15) Symptoms of dehydration Status: Acute (16) Weight decreased Status: Acute (17) Alcohol dependence Status: Chronic Qualifiers: Substance use status: uncomplicated Qualified Code(s): F10.20 - Alcohol dependence, uncomplicated (18) Allergic rhinitis Status: Chronic Qualifiers: Allergic rhinitis seasonality: unspecified (19) Asthma Status: Chronic Qualifiers: Asthma severity: mild Asthma persistence: intermittent Asthma complication type: uncomplicated Qualified Code(s): J45.20 - Mild intermittent asthma, uncomplicated (20) Bipolar disorder Status: Chronic (21) Cocaine use disorder Status: Chronic (22) Depression Status: Chronic Qualifiers: Depression Type: unspecified Qualified Code(s): F32.9 - Major depressive disorder, single episode, unspecified (23) Hepatitis C Status: Chronic Qualifiers: Viral hepatitis chronicity: chronic Hepatic coma status: without hepatic coma Qualified Code(s): B18.2 - Chronic viral hepatitis C (24) History of bipolar disorder Status: Chronic (25) History of hepatitis C Status: Chronic (26) Nicotine dependence Status: Chronic (27) Opioid dependence Status: Chronic Qualifiers: Substance use status: uncomplicated Qualified Code(s): F11.20 - Opioid dependence, uncomplicated (28) Opioid dependence on agonist therapy Status: Chronic (29) Sedative dependence Status: Chronic (30) Tinea pedis Status: Chronic Qualifiers: Laterality: bilateral Qualified Code(s): B35.3 - Tinea pedis (31) History of seizure Status: Suspected (32) Insomnia Status: Suspected Qualifiers: Insomnia type: unspecified Qualified Code(s): G47.00 - Insomnia, unspecified
[2019-08-09] MEDS ORDERED: chlordiazePOXIDE HCL 10 MG CAPSULE PO ONE (05:00)
[2019-08-09] MEDS ORDERED: diazePAM 5 MG TABLET PO ONE (06:00)
== END 2019-08-08 07:05 | disposition home or self-care (01) | DRG 773 ==
LOC: YASAS 16:34 → Y6N 18:01
PROVIDERS: ADMIT Allergy & Immunology; ATTEND Allergy & Immunology
PROC: HZ2ZZZZ Detoxification Services for Substance Abuse Treatment (ICD-10-PCS; principal; 2019-08-05)
DX: F10.230 Alcohol dependence with withdrawal, uncomplicated (principal); F11.23 Opioid dependence with withdrawal; F13.230 Sedative, hypnotic or anxiolytic dependence with withdrawal, uncomplicated; F14.20 Cocaine dependence, uncomplicated; F12.20 Cannabis dependence, uncomplicated; F17.210 Nicotine dependence, cigarettes, uncomplicated; F19.282 Other psychoactive substance dependence with psychoactive substance-induced sleep disorder; F18.24 Inhalant dependence with inhalant-induced mood disorder; F31.9 Bipolar disorder, unspecified; F41.9 Anxiety disorder, unspecified; G47.00 Insomnia, unspecified; E83.51 Hypocalcemia; E86.0 Dehydration; J45.20 Mild intermittent asthma, uncomplicated; L03.113 Cellulitis of right upper limb; L03.114 Cellulitis of left upper limb; B35.3 Tinea pedis; B18.2 Chronic viral hepatitis C; R63.4 Abnormal weight loss; Z68.23 Body mass index [BMI] 23.0-23.9, adult; Z86.69 Personal history of other diseases of the nervous system and sense organs; Z88.0 Allergy status to penicillin; Z91.018 Allergy to other foods
CPT/HCPCS: 36415; 80053; 85027

== ENCOUNTER 2020-06-10 12:22 | Inpatient (IN) | payer OTHER ==
[2020-06-10 13:59] VITALS: BMI 22.1
[2020-06-10] MEDS ORDERED: methaDONE HCL 10 MG TABLET (FOR DETOX USE ONLY) PO ONE (14:03)
[2020-06-10] MEDS ORDERED: ONDANSETRON *ODT* 4 MG TABLET SL PRN (14:03)
[2020-06-10] MEDS ORDERED: BISMUTH SUBSALICYLATE 262 MG/15 ML BTL PO PRN (14:03)
[2020-06-10] MEDS ORDERED: MENTHOL/PHENOL 1 EACH UD MM PRN (14:03)
[2020-06-10] MEDS ORDERED: MAGNESIUM HYDROX 2400MG/30ML ORAL SUSPENSION 30 ML CUP PO PRN (14:03)
[2020-06-10] MEDS ORDERED: MAG HYDROX/AL HYDROX/SIMETH 30 ML UNIT-DOSE CUP PO PRN (14:03)
[2020-06-10] MEDS ORDERED: ACETAMINOPHEN 325 MG TABLET (FP) PO PRN ×2 (14:03)
[2020-06-10] MEDS ORDERED: MAGNESIUM CITRATE 300 ML BOTTLE PO PRN (14:03)
[2020-06-10] MEDS ORDERED: NICOTINE POLACRILEX 2 MG GUM BUC PRN (14:03)
[2020-06-10] MEDS ORDERED: ALBUTEROL SO4 HFA INHALER IH PRN (14:05)
[2020-06-10] MEDS ORDERED: NICOTINE 14 MG/24 HOURS TOPICAL PATCH TD SCH (14:15)
[2020-06-10] MEDS: METHOCARBAMOL 500 MG TABLET PO PRN ×2 (15:08→22:16)
[2020-06-10] MEDS: IBUPROFEN 400 MG TABLET (FP) PO PRN ×2 (15:08→22:16)
[2020-06-10] MEDS: cloNIDine HCL 0.1 MG TABLET PO PRN ×2 (15:08→22:14)
[2020-06-10 17:47] LABS: HEMATOCRIT 37.4 % (35.4-49); HEMOGLOBIN 12.3 GM/dL (11.7-16.9); MCH 26.8 pg (25.7-33.7); MCHC 32.8 g/dl (32.0-35.9); MEAN CELL VOLUME 81.8 fl (80-96); MEAN PLT VOLUME 8.8 fl (7.5-11.1); PLATELET COUNT 259 K/MM3 (134-434); RBC 4.57 M/mm3 (4.00-5.60); RDW 13.6 % (11.9-15.9); WHITE BLOOD COUNT 6.2 K/mm3 (4.0-10.0)
[2020-06-10 18:05] LABS: BLOOD UREA NITROGEN 20.3 mg/dL (7-18); CALCIUM 8.5 mg/dL (8.5-10.1)
[2020-06-10 18:06] LABS: ALBUMIN 3.6 g/dl (3.4-5.0)
[2020-06-10 18:09] LABS: CREATININE 0.7 mg/dL (0.55-1.3)
[2020-06-10 18:10] LABS: BILIRUBIN,TOTAL 0.6 mg/dL (0.2-1); TOT PROT 7.3 g/dl (6.4-8.2)
[2020-06-10] MEDS: hydrOXYzine PAMOATE 25 MG CAPSULE (FP) PO SCH ×2 (19:04→22:17)
[2020-06-10] MEDS ORDERED: THIAMINE HCL 100 MG TABLET (FP) PO SCH (22:00)
[2020-06-10] MEDS ORDERED: MONTELUKAST NA 10 MG TABLET PO SCH (22:00)
[2020-06-10] MEDS ORDERED: MELATONIN 5 MG TABLETS PO SCH (22:00)
[2020-06-10] MEDS: P-EPHED 60MG/TRIPROLIDI 2.5MG TABLET PO SCH (23:08)
[2020-06-11] MEDS: cloNIDine HCL 0.1 MG TABLET PO PRN ×2 (03:09→06:20)
[2020-06-11] MEDS: hydrOXYzine PAMOATE 25 MG CAPSULE (FP) PO SCH (05:11)
[2020-06-11] MEDS: METHOCARBAMOL 500 MG TABLET PO PRN (05:13)
[2020-06-11] MEDS: P-EPHED 60MG/TRIPROLIDI 2.5MG TABLET PO SCH (06:24)
[2020-06-11 06:45] VITALS: BP 140/96; PULSE 63; TEMP 97.3
[2020-06-11] MEDS ORDERED: PRENATAL VITAMINS W/ FOLIC ACID TABLET (FP) PO SCH (10:00)
[2020-06-12] MEDS ORDERED: methaDONE HCL 10 MG TABLET (FOR DETOX USE ONLY) PO ONE (10:00)
[2020-06-12] MEDS ORDERED: FLU VACCINE (FLULAVAL) PF 60 MCG/0.5 ML SYRINGE 2020-2021 IM ONE (12:00)
[2020-06-14] MEDS ORDERED: methaDONE HCL 10 MG TABLET (FOR DETOX USE ONLY) PO ONE (10:00)
== END 2020-06-11 07:10 | disposition left against medical advice (07) | DRG 770 ==
LOC: YASAS 12:22 → Y6N 13:58
PROVIDERS: ADMIT Allergy & Immunology; ATTEND Allergy & Immunology
PROC: HZ2ZZZZ Detoxification Services for Substance Abuse Treatment (ICD-10-PCS; principal; 2020-06-10)
DX: F11.23 Opioid dependence with withdrawal (principal); F10.230 Alcohol dependence with withdrawal, uncomplicated; F14.20 Cocaine dependence, uncomplicated; F12.20 Cannabis dependence, uncomplicated; F17.210 Nicotine dependence, cigarettes, uncomplicated; F31.9 Bipolar disorder, unspecified; F41.9 Anxiety disorder, unspecified; B18.2 Chronic viral hepatitis C; J45.20 Mild intermittent asthma, uncomplicated; J30.9 Allergic rhinitis, unspecified; B35.3 Tinea pedis; Z91.410 Personal history of adult physical and sexual abuse; Z59.0 Homelessness; Z88.0 Allergy status to penicillin; Z91.018 Allergy to other foods
CPT/HCPCS: 36415; 80053; 85027; 86780; 93005; 93010; C9803; J0735; U0003

== ENCOUNTER 2022-09-20 10:25 | Inpatient (IN) | payer OTHER ==
[2022-09-20 11:08] VITALS: BMI 23.0
[2022-09-20] MEDS ORDERED: ACETAMINOPHEN 325 MG TABLET (FP) PO PRN (11:26)
[2022-09-20] MEDS ORDERED: NALOXONE HCL (KLOXXADO) 8 MG SPRAY NS PRN (11:26)
[2022-09-20] MEDS ORDERED: guaiFENesin 600 MG TABLET.ER (FP) PO PRN (11:26)
[2022-09-20] MEDS ORDERED: IBUPROFEN 400 MG TABLET (FP) PO PRN (11:26)
[2022-09-20] MEDS ORDERED: NALOXONE HCL 0.4 MG/ML VIAL IM PRN (11:26)
[2022-09-20] MEDS ORDERED: NICOTINE 10 MG CARTRIDGE (INHALER) IH PRN (11:26)
[2022-09-20] MEDS ORDERED: BENZONATATE 200 MG CAPSULE PO PRN (11:26)
[2022-09-20] MEDS ORDERED: IBUPROFEN 600 MG TABLET (FP) PO PRN (11:26)
[2022-09-20] MEDS ORDERED: BISMUTH SUBSALICYLATE 262 MG/15 ML BTL PO PRN (11:26)
[2022-09-20] MEDS ORDERED: LOPERAMIDE HCL 2 MG CAPSULE PO PRN (11:26)
[2022-09-20] MEDS ORDERED: ONDANSETRON *ODT* 4 MG TABLET SL PRN (11:26)
[2022-09-20] MEDS ORDERED: POLYETHYLENE GLYCOL (HEALTHYLAX) 3350 17 GM PACKET PO PRN (11:26)
[2022-09-20] MEDS ORDERED: MAGNESIUM HYDROX 2400MG/30ML ORAL SUSPENSION 30 ML CUP PO PRN (11:26)
[2022-09-20] MEDS ORDERED: LORazepam 1 MG TABLET PO PRN (11:26)
[2022-09-20] MEDS ORDERED: MAG HYDROX/AL HYDROX/SIMETH 30 ML UNIT-DOSE CUP PO PRN (11:26)
[2022-09-20] MEDS ORDERED: BENZOCAINE/MENTHOL (CHLORASEPTIC ) LOZENGE MM PRN (11:26)
[2022-09-20] MEDS ORDERED: DICYCLOMINE HCL 10 MG CAPSULE PO PRN (11:26)
[2022-09-20] MEDS ORDERED: cloNIDine HCL 0.1 MG TABLET PO PRN (11:26)
[2022-09-20] MEDS ORDERED: ALBUTEROL SO4 HFA INHALER IH PRN (11:32)
[2022-09-20] MEDS ORDERED: PRENATAL VITAMINS W/ FOLIC ACID TABLET (FP) PO ONE (11:42)
[2022-09-20] MEDS ORDERED: LORazepam 2 MG TABLET ONE (11:42)
[2022-09-20] MEDS: LORazepam 2 MG TABLET PO SCH ×3 (11:45→22:45)
[2022-09-20] MEDS: PRENATAL VITAMINS W/ FOLIC ACID TABLET (FP) PO SCH (11:45)
[2022-09-20 16:09] LABS: HEMATOCRIT 29.3 % (35.4-49); HEMOGLOBIN 9.7 GM/dL (11.7-16.9); MCH 26.7 pg (25.7-33.7); MCHC 33.2 g/dl (32.0-35.9); MEAN CELL VOLUME 80.4 fl (80-96); MEAN PLT VOLUME 7.8 fl (7.5-11.1); PLATELET COUNT 440 10^3/uL (134-434); RBC 3.64 M/mm3 (4.00-5.60); RDW 13.3 % (11.9-15.9); WHITE BLOOD COUNT 5.7 K/mm3 (4.0-10.0)
[2022-09-20] MEDS: METHOCARBAMOL 500 MG TABLET PO PRN (18:00)
[2022-09-20] MEDS: hydrOXYzine PAMOATE 25 MG CAPSULE (FP) PO PRN (18:00)
[2022-09-20] MEDS ORDERED: methaDONE HCL 10 MG TABLET (FOR DETOX USE ONLY) PO ONE (22:00)
[2022-09-20] MEDS: traZODone HCL 50 MG TABLET (FP) PO SCH (22:38)
[2022-09-20] MEDS: THIAMINE HCL 100 MG TABLET (FP) PO SCH (22:38)
[2022-09-20] MEDS: MELATONIN 5 MG TABLETS PO SCH (22:39)
[2022-09-20] MEDS: LACTULOSE 20 GM/30 ML UDC (FOR ORAL USE ONLY) PO SCH (22:40)
[2022-09-21] MEDS: LORazepam 2 MG TABLET PO SCH ×4 (06:00→22:27)
[2022-09-21] MEDS: LACTULOSE 20 GM/30 ML UDC (FOR ORAL USE ONLY) PO SCH ×4 (10:35→22:27)
[2022-09-21] MEDS: PRENATAL VITAMINS W/ FOLIC ACID TABLET (FP) PO SCH (10:35)
[2022-09-21 17:58] LABS: POTASSIUM 4.2 mmol/L (3.5-5.1)
[2022-09-21 18:00] LABS: BLOOD UREA NITROGEN 7.5 mg/dL (7-18); CALCIUM 8.6 mg/dL (8.5-10.1)
[2022-09-21 18:01] LABS: ALBUMIN 2.7 g/dl (3.4-5.0)
[2022-09-21 18:04] LABS: CREATININE 0.5 mg/dL (0.55-1.3)
[2022-09-21 18:05] LABS: BILIRUBIN,TOTAL 0.3 mg/dL (0.2-1); TOT PROT 7.6 g/dl (6.4-8.2)
[2022-09-21] MEDS: THIAMINE HCL 100 MG TABLET (FP) PO SCH (22:27)
[2022-09-21] MEDS: traZODone HCL 50 MG TABLET (FP) PO SCH (22:27)
[2022-09-21] MEDS: MELATONIN 5 MG TABLETS PO SCH (22:36)
[2022-09-21 22:49] VITALS: RESP 18
[2022-09-22] MEDS: METHOCARBAMOL 500 MG TABLET PO PRN (02:11)
[2022-09-22] MEDS: hydrOXYzine PAMOATE 25 MG CAPSULE (FP) PO PRN (02:11)
[2022-09-22] MEDS: LORazepam 1 MG TABLET PO SCH ×2 (05:55→10:34)
[2022-09-22 06:27] VITALS: BP 134/65; PULSE 54; TEMP 98.1
[2022-09-22] MEDS ORDERED: methaDONE HCL 10 MG TABLET (FOR DETOX USE ONLY) PO ONE (10:00)
[2022-09-22] MEDS: LACTULOSE 20 GM/30 ML UDC (FOR ORAL USE ONLY) PO SCH (10:33)
[2022-09-22] MEDS: PRENATAL VITAMINS W/ FOLIC ACID TABLET (FP) PO SCH (10:35)
[2022-09-23] MEDS ORDERED: LORazepam 0.5 MG TABLET PO PRN
[2022-09-23] MEDS ORDERED: LORazepam 0.5 MG TABLET PO SCH (05:00)
[2022-09-24] MEDS ORDERED: LORazepam 0.5 MG TABLET PO ONE (05:00)
[2022-09-24] MEDS ORDERED: methaDONE HCL 10 MG TABLET (FOR DETOX USE ONLY) PO ONE (10:00)
== END 2022-09-22 11:38 | disposition left against medical advice (07) | DRG 770 ==
LOC: EDBD → YASAS 10:25 → Y6N 11:48
PROVIDERS: ADMIT Allergy & Immunology; ATTEND Surgery
PROC: HZ2ZZZZ Detoxification Services for Substance Abuse Treatment (ICD-10-PCS; principal; 2022-09-20)
DX: F11.23 Opioid dependence with withdrawal (principal); F10.230 Alcohol dependence with withdrawal, uncomplicated; F14.20 Cocaine dependence, uncomplicated; F12.20 Cannabis dependence, uncomplicated; Z72.0 Tobacco use; F31.9 Bipolar disorder, unspecified; F19.24 Other psychoactive substance dependence with psychoactive substance-induced mood disorder; E72.20 Disorder of urea cycle metabolism, unspecified; I10 Essential (primary) hypertension; B18.2 Chronic viral hepatitis C; Z59.01 Sheltered homelessness; Z88.0 Allergy status to penicillin
CPT/HCPCS: 36415; 80053; 82140; 85027; 86780; 87811; 93005; 93010; C9803-CS; U0003; U0005